=== PATIENT | male | born 1990 | race Caucasian/White ===

== ENCOUNTER 2022-06-25 21:36 | Inpatient (IN) | payer BC ==
--- OUTSIDE RECORDS SUMMARY | 2022-06-25 21:46 | XMS REPORT | Continuity of Care Document ---
:1990 Author Organization [facility] t Address [address] [place] [address] [address]. [address] [place] [address] Care Team Providers Name Role Phone OSWALDO LEE Primary Care Physician Unavailable Fredo BENNETT, Bertha Benitez Attending Clinician NAOMI DE Attending Clinician Unavailable Thanh Toney MD Attending Clinician Marc Chris MD Attending Clinician Naomi De DO Attending Clinician Marco Antonio Dunbar DO Attending Clinician Jessica Hampton Attending Clinician JESSICA HAMPTON Attending Clinician Unavailable Oswaldo Lee Attending Clinician Chun Becker MD Attending Clinician Chiquis Cardoza Attending Clinician Tosha Villanueva Attending Clinician Teetee Hendrix Attending Clinician TEETEE HENDRIX Attending Clinician Unavailable Castro Garcia Attending Clinician Rubi Steele Attending Clinician RUBI STEELE Attending Clinician Unavailable Travis Maria Attending Clinician Nik [place]ont II Attending Clinician Adiel Cortes Attending Clinician Jose Martin Mejias Attending Clinician Brett Villarreal Attending Clinician MARC CHRIS Admitting Clinician Unavailable Marc Chris MD Admitting Clinician NAOMI DE Admitting Clinician Unavailable Naomi De DO Admitting Clinician Payers Payer Name Policy Type Policy Number Effective Date Expiration Date S ource Problems Condition Condition Condition Status Onset Resolution Last Treating Co mments Source Name Details Category Date Date Treatment Clinician Date EDOUARD (acute EDOUARD (acute Disease Active U [facility] kidney kidney 9-17 ity of injury) injury) 00:00: [address] Branch Nephrotic Nephrotic Disease Active Uni vers syndrome syndrome 2-23 ity of 00:00: [address] Obesity Obesity Disease Active Univers (BMI (BMI 2-23 ity of 30-39.9) 30-39.9) 00:00: [address] FLUID FLUID Diagnosis Active 2021-07-21 Mem oria BUILD UP BUILD UP 2-22 04:53:00 l Active 00:00: Jet 07/16/2021 00 [facility] Jet RETAINING RETAINING Diagnosis Active 2020-052021-03-25 Memoria FLUID FLUID 0-31 01:24:00 l Active 00:00: Jet 03/24/2021 00 [place] LEG LEG Diagnosis Active 2020-10-28 Mem oria SWELLING, SWELLING, 6- 00:30:00 l HOT TO HOT TO 00:00: Jet TOUCH TOUCH 00 Active 10/27/2020 [place] ABCESS/ ABCESS/ Diagnosis Active 2017-052018-05-23 Memoria ELEVATED ELEVATED 2- 18:44:00 l BP BP Active 00:00: Jet 05/23/2018 [facility] Jet U/S U/S Diagnosis Active 2017-02-09 Mem oria Active 02-03 06:19:00 l 02/03/2017 00:00: Junior n [address] R07.89 - R07.89 - Diagnosis Active 2016-12-10 Memoria OTHER OTHER 12-10 14:06:00 l CHEST PAIN CHEST PAIN 00:01: He rmann Active 00 12/10/2016 [facility] [place] SWELLING SWELLING Diagnosis Active 2015-09-30 Memoria ON LIP ON LIP 09-29 20:09:00 l Active 00:00: [place] 09/30/2015 00 [facility] KNEE PAIN KNEE Diagnosis Active 2013-052014-05-22 Memoria PAIN 05:44:00 l Active 00:00: [place] 05/22/2014 00 [facility] Varicella Varicella Problem Resolve 2021-07-19 Memoria (disorder) (disorder) d 00:28:06 l Resolved Jet Problem 07/19/2021 [facility], [facility], [facility] [place],[facility] [place] Hyperglyce Hyperglyc Problem Active 2021-07-19 Memoria kulwant due to emia due 00:28:06 l type 2 to type 2 Jet diabetes diabetes mellitus mellitus (disorder) (disorder) Active Problem 07/19/2021 [facility], [facility]AYA [facility]gins,[facility], [place] Simple Simple Problem Active 2021-07-19 Mem oria obesity obesity 00:28:06 l (disorder) (disorder) He rmann Active Problem 07/19/2021 Medical Group, [facility]AY[facility]gins,[facility] [place] Diabetes Diabetes Problem Active 2021-07-19 Memoria mellitus mellitus 00:28:06 l type 2 type 2 Jet (disorder) (disorder) Active Problem 07/19/2021 [facility], CHAYA Higgins,[facility], [place] Bilateral Problem Active 2021-07-19 Me moria lower limb Bilateral 00:28:06 l edema lower limb Junior n edema Active Problem 07/19/2021 Medical Group, [facility]AYA Higgins,[facility] Hypertensi Problem Active 2021-07-19 M emoria ve Hypertensi 00:28:06 l disorder, ve Jet systemic disorder, arterial systemic (disorder) arterial (disorder) Active Problem 07/19/2021 [facility], CHAYA Higgins,[facility],M [place] Hypoalbumi Problem Active 2021-07-19 Eli bell Hypoalbumi 00:28:06 l (finding) arabella Jet (finding) Active Problem 07/19/2021 [facility], [facility]AYA Higgins,[facility] Proteinuri Proteinur Problem Active 2021-07-19 Memoria a ia 00:28:06 l (finding) (finding) Herm isak Active Problem 07/19/2021 [facility], [facility]AYA Higgins,[facility] R80.9 - R80.9 - Diagnosis Active 2021-04-22 Memoria PROTEINURI PROTEINURI 13:26:00 l A AJet UNSPECIFIE UNSPECIFIE D E11.22 D E11.22 Active [facility] Jet R FOOT R FOOT Diagnosis Active 2011-02-18 Me moria PAIN PAIN 11:35:00 l Active Junior Aj Diabetes Diabetes Problem Resolve 2021-07-19 2021-07-19 Memoria mellitus mellitus d 6-20 00:28:06 00:28:06 l (disorder) (disorder) 00:00: He rmann Resolved 11/11/2016 Problem 07/19/2021 Medical [facility], CHAYA Higgins, [place],[facility], [facility]AY[facility] [place],M [place] Cigarette Cigarette Problem Resolve 2021-07-19 2021-07-19 Memoria smoker smoker d -24 00:28:06 00:28:06 l (finding) (finding) 00:00: Herm isak Resolved 00 10/15/2013 Problem 07/19/2021 Data migrated from [facility] on 10/24/14. Medical Group, CHAYA Higgins,[facility], [facility] [place],[facility] [place] History of Past Illness Condition Condition Condition Status Onset Resolution Last Treating Co mments Source Name Details Category Date Date Treatment Clinician Date Anemia, Anemia, Problem 2021-07-07 2021-07-07 Memoria unspecifie unspecifie 2-10 01:49:55 01:49:55 l d d 19:35: Jet 07/04/2021 00 07/07/2021 Medical Group Type 2 Type 2 Problem 2021-07-07 2021-07-07 Memoria diabetes diabetes 2- 01:49:55 01:49:55 l mellitus mellitus 22:59: Junior n with other with other 00 specified specified complicati complicati on on 07/02/2021 07/07/2021 Medical Group Localized Problem 2021-07-07 2021-07-07 Memoria edema Localized 2 01:49:55 01:49:55 l edema 22:58: Jet 07/02/2021 00 07/07/2021 Medical Group, [place] Essential Essential Problem 2021-07-07 2021-07-07 Memoria (primary) (primary) 07-02 01:49:55 01:49:55 l hypertensi hypertensi 22:58: Ant alanis on on 07/02/2021 07/07/2021 Medical Group Other Other Problem 2020-052021-04-12 2021-04-12 M emoria disorders disorders - 02:57:36 02:57:36 l of of 16:32: Jet plasma-pro plasma-pro 00 tein tein metabolism metabolism , not , not elsewhere elsewhere classified classified 04/09/2021 04/12/2021 Medical Group, [place] Other Other Problem 2020-052021-04-12 2021-04-12 M emoria proteinuri proteinuri - 02:57:36 02:57:36 l a a 16:31: Jet 04/09/2021 00 Medical Group Encounter Encounter Problem 2020-052021-03-30 2021-03-30 Memoria for for 05-27 01:11:22 01:11:22 l immunizati immunizati 21:34: Ant alanis on on 03/27/2021 Medical Group Hyperglyce Hyperglyc Problem 2020-10-30 2020-10-30 Memoria tracee blum, 10-28 21:03:50 21:03:50 l unspecifie unspecifie 17:00: He rmann d d 00 10/28/2020 [place] Rash and Rash and Problem 2020-10-30 2020-10-30 Memoria other other 10-28 21:03:50 21:03:50 l nonspecifi nonspecifi 17:00: He zeke erwin skin c skin 00 eruption eruption 10/28/2020 10/30/2020 [place] Splenomega Splenomeg Problem 2016-12-21 2016-12-21 Memoria ly, not [place], not 12-18 05:45:16 05:45:16 l elsewhere elsewhere 05:00: Herm isak classified classified 12/21/2016 [facility] [place] Chest Chest Problem 2016-12-21 2016-12-21 M emoria pain, pain, 12-18 05:45:16 05:45:16 l unspecifie unspecifie 05:00: He blakeann d d 00 12/18/2016 12/21/2016 [place] Discharge Discharge Problem 2015-10-03 2015-10-03 Memoria Diagnosis: Diagnosis: 09-29 00:37:16 00:37:16 l Abscess Abscess 05:00: Jet 09/30/201510/03/2015 Ezequiel Allergies, Adverse Reactions, Alerts Allergy Allergy Status Severity Reaction(s) Onset Inactive Treating Comm ents Source Name Type Date Date Clinician NO KNOWN Drug Active Univers ALLERGIE Class ity of S [facility] Social History Social Habit Start Date Stop Date Quantity Comments Source History of Cigarette Smoker Universi ty of tobacco use [facility] Exposure to 2022-01-29 2022-02-08 Not sure [facility] SARS-CoV-2 00:00:00 01:17:00 [facility] [place] (event) Branch Tobacco use and 2022-02-08 2022-02-08 Smokeless tobacco Un iversity of exposure 00:00:00 00:00:00 non-user [facility] [place] Branch Education 2021-07-17 2021-07-17 13 University 00:00:00 00:00:00 [facility] Alcohol intake 2016-07-12 2016-07-12 Current Mandaen 00:00:00 00:00:00 non-drinker of Hospital alcohol (finding) Social History 2015-10-02 2015-10-02 [facility] Choco burgos 15:55:39 15:55:39 Sex [birth year] Mandaen 00:00:00 00:00:00 Hospital Smoking Status Start Date Stop Date Source Ex-smoker 2022-02-08 00:00:00 2022-02-08 00:00:00 [facility] Medical Branch Never smoker [facility] Medical Branch Medications Ordered Filled Start Stop Current Ordering Indication Dosage Frequency Signature Comments Components Source Medication Medication Date Date Medication? Clinician (SIG) Name Name glimepiride Yes 1mg Take 1 mg U nivers 1 mg tablet 9-20 by mouth ity of 10:25: daily with [place] [address] breakfast. Medical Branch carvediloL Yes 25mg Take 25 mg U nivers 25 mg 9-20 by mouth 2 ity of tablet 10:25: (two) [place] [address] times Medical daily with Branch meals. lisinopriL 0 Yes 40mg Take 40 mg U nivers 40 mg 9-20 by mouth ity of tablet 10:25: daily. [place] [address] Medical Branch bumetanide 0 Yes 2mg Take 2 mg [place] 2 mg tablet 9-20 by mouth ity of 10:25: in the [place] [address] morning Medical and 2 mg Branch in the evening. SITagliptin 0 Yes 100mg Take 100 U nivers 100 mg 9-20 mg by ity of tablet 10:25: mouth in [place] [address] the Medical morning. Branch spironolact 0 Yes 100mg Take 100 U nivers one 100 mg 9-20 mg by ity of tablet 10:25: mouth in [place] [address] the Medical morning Branch and 100 mg in the evening. Titratable per patient glimepiride 2021-0 Yes 1mg Take 1 mg U nivers 1 mg tablet 9-20 by mouth ity of 10:25: daily with [place] [address] breakfast. Medical Branch carvediloL 2021-0 Yes 25mg Take 25 mg U nivers 25 mg 9-20 by mouth 2 ity of tablet 10:25: (two) [place] [address] times Medical daily with Branch meals. lisinopriL 2021-0 Yes 40mg Take 40 mg U nivers 40 mg 9-20 by mouth ity of tablet 10:25: daily. [place] [address] Medical Branch bumetanide 0 Yes 2mg Take 2 mg [place] 2 mg tablet 9-20 by mouth ity of 10:25: in the [place] [address] morning Medical and 2 mg Branch in the evening. SITagliptin 0 Yes 100mg Take 100 U nivers 100 mg 9-20 mg by ity of tablet 10:25: mouth in [place] [address] the Medical morning. Branch spironolact 0 Yes 100mg Take 100 U nivers one 100 mg 9-20 mg by ity of tablet 10:25: mouth in [place] [address] the Medical morning Branch and 100 mg in the evening. Titratable per patient furosemide 2021- No 40mg 40 mg, Univ ers (LASIX) -11 02-20 Slow IV ity of injection 04:00: 03:20 [place], [place] 40 mg 00 :00 ONCE, 1 Medical dose, On Branch Thu02/10/22 at 2300, TRINY carvediloL Yes 25mg 25 mg, Unive rs (COREG) 9-20 Oral, BID ity of tablet 25 03:15: MEALS, [place] mg 00 First dose Medical on [facility] 02/10/22 at 2215, Until Discontinu ed, Routine labetaloL Yes 10mg 10 mg, Univer s (NORMODYNE) 9-20 Slow IV ity o f injection 03:07: Push, [place] 10 mg 13 Q4HPRN, Medical Starting Branch on [facility] 02/10/22 at 2207, Until Discontinu ed, Routine, SBP > 180 or DBP > 110. Hold if HR < 65 hydralAZINE 0 Yes 10mg 10 mg, Univ ers (APRESOLINE 9-20 Slow IV ity o f ) injection 03:06: Push, [place] 10 mg 52 Q4HPRN, Medical Starting Branch on [facility] 02/10/22 at 2206, Until Discontinu ed, Routine, DBP=>10 0; SBP=>180 hydralAZINE 2021-0 2021- No 10mg 10 mg, Uni vers (APRESOLINE 9-20 -20 Slow IV ity of ) injection 02:15: 01:24 [place], [place] 10 mg 00 :00 ONCE, 1 Medical dose, On Branch 02/10/22 at 2115, STAT ferrous 2021-2021- No [id number] 325mg Take 1 Univers sulfate 325 02-11 9101 tablet by it y of mg (65 mg 00:00: 04:59 mouth in [place] iron) 00 :00 the Medical tablet morning Branch and 1 tablet in the evening. Do all this for 30 days. ferrous 2021-2021- No [id number] 325mg Take 1 Univers sulfate 325 02-11 9101 tablet by it y of mg (65 mg 00:00: 04:59 mouth in [place] iron) 00 :00 the Medical tablet morning Branch and 1 tablet in the evening. Do all this for 30 days. amoxicillin 2021- No [id number] 1{tbl} Take 1 Univers -clavulanat 02-11 9101 tablet by it y of e 00:00: 04:59 mouth in [place] (AUGMENTIN) 00 :00 the Medical 875-125 mg morning Branch per tablet and 1 tablet in the evening. Do all this for 10 days. amoxicillin 2021- No [id number] 1{tbl} Take 1 Univers -clavulanat 02-11 9101 tablet by it y of e 00:00: 04:59 mouth in [place] (AUGMENTIN) 00 :00 the Medical 875-125 mg morning Branch per tablet and 1 tablet in the evening. Do all this for 10 days. furosemide 2021- No 20mg 20 mg, Univ ers (LASIX) 02-10 Slow IV ity of injection 22:30: 22:47 Push, [place] 20 mg 00 :00 ONCE, 1 Medical dose, On Branch Thu02/10/22 at 1730, Routine iron 2021- No 200mg 200 mg, IV Unive rs sucrose 02-10 Infusion, ity of (VENOFER) 14:30: 18:37 ONCE, [place] 200 mg in 00 :00 Administer Medi cruz NaCl 0.9% over 2.5 Branch (NS) 100 mL Hours, On infusion 02/10/22 at 0930, For 1 dose albumin 2021- No 25g 25 g, IV Unive rs (ALBUMINAR 02-09 Infusion, ity of 25%) 25 % 19:15: 23:36 ONCE, 1 [place] injection 00 :46 dose, On Medica l 25 g [facility] 02/09/22 at 1415, 100 mL
Shaylee cation: NEPHROTIC SYNDROME (ACUTE, SEVERE PERIPHERAL OR PULMONARY EDEMA)
Comments: Short-term use of albumin in combinatio n with diuretic therapy when: serum albumin <2 g/dL and optimal diuretic therapy alone has failed ampicillin- 2021- No 3g 3 g, IV [place] sulbactam 02-09 Piggyback, ity of (UNASYN) 3 15:00: 14:59 Q12H ABX, [place] g in NaCl 00 :00 20 doses, Medic al 0.9% (NS) First dose Bran ch 100 mL on [place] MINI-BAG 02/09/22 at 1000, Last dose on 02/18/22 at 2200, Administer over 30 Minutes, 100 mL
Reas on for Anti-Infec tive: Documented Infection& lt;br>Docu mented Infection Site: Skin / Soft Tissue
Duration of Therapy: 10 days heparin Yes 5000U 5,000 Univers (porcine) 02-09 Units, ity of injection 13:00: [place]cut[place]o [place] 5,000 Units 00 us, Q12H, Med ical First dose Branch on [place] 02/09/22 at 0800, Until Discontinu ed, Routine collagenase Yes Topical Uni vers (SANTYL) 02-08 (Apply To ity of ointment 21:00: Affected [place] 00 Areas), Medical DAILY, Branch First dose on [facility] 02/08/22 at 1600, Until Discontinu ed, Routine SITagliptin Yes 50mg 50 mg, Univ ers (JANUVIA) 02-08 Oral, ity of tablet 50 14:00: DAILY, [place] mg 00 First dose Medical on [facility] Branch 02/08/22 at 0900, Until Discontinu ed, Routine Sliding Yes Subcutaneo Univ ers Scale - us, TID ity of Insulin - 13:00: MEALS+HS, Nic as Lispro 00 First dose Medical (HumaLOG) + on [facility] Branch Fsbg 9/17/22 at Testing 0800, Until Discontinu ed, Routine clindamycin 2021- No 600mg 600 mg, IV Univers in 5 % 02-08 Piggyback, ity of dextrose 09:15: 13:49 Q8H ABX, [place] (CLEOCIN) 00 :24 First dose Medi cruz 600 mg/50 on Sat Branch mL IV 02/08/22 at piggyback 0415, RTU 600 mg Until Discontinu ed, Administer over 30 Minutes, 50 mL
Reas on for Anti-Infec tive: Empiric Therapy for Suspected Infection< br>Empi adi Therapy Site: Skin / Soft tissue
Duration of therapy: 72 hours
R estricted use approved by: After Hours (for ADC, CLC, LCC ONLY) NaCl 0.9% 2021- No 1000mL at 100 Uni vers (NS) IV 02-08 mL/hr, IV ity of infusion 08:15: 18:22 Infusion, Nic as 1,000 mL 00 :54 CONTINUOUS Medic al , Starting Branch on 02/08/22 at 0315, Until 02/09/22 at 1322, Routine NaCl 0.9% 2021- No 1000mL at 999 Uni vers (NS) bolus 02-08 mL/hr, ity of infusion 08:15: 16:00 1,000 mL, Nic as 1,000 mL 00 :00 IV Medical Infusion, Branch ONCE, 1 dose, On 02/08/22 at 0315, TRINY glucagon Yes 1mg 1 mg, Univers (GLUCAGEN 02-08 Intramuscu ity of DIAGNOSTIC 08:05: lar, PRN, [place] KIT) 23 Starting Medical injection 1 on Sat Branch mg 02/08/22 at 0305, Until Discontinu ed, TRINY, Blood Glucose < or = 70 mg/dL and patient is unable to swallow or has mental changes. dextrose 50 2021-0 Yes 25mL 25 mL, Univ ers % in water 02-08 Slow IV ity of (D50W) 08:05: Push, PRN, [place] injection 23 Starting Medica l 25 mL on Sat Branch 02/08/22 at 0305, Until Discontinu ed, TRINY, Blood Glucose < or = 70 mg/dL and patient is unable to swallow or has mental status changes. HYDROcodone Yes 1{tbl} 1 tablet, Univers -acetaminop 02-08 Oral, ity of hen (NORCO) 08:04: Q6HPRN, Nic as 10-325 mg 28 Starting Medica l tablet 1 on Sat Branch tablet 02/08/22 at 0304, Until Discontinu ed, Routine, Pain (scale 7-10) HYDROcodone 2021-0 2021- No 1{tbl} 1 tablet, Univers -acetaminop 02-08 Oral, ity of hen (NORCO 08:04: 08:03 Q6HPRN, Nic as 5) 5-325 mg 25 :25 Starting Medi cruz tablet 1 on Sat Branch tablet 02/08/22 at 0304, Until 02/10/22 at 0303, Routine, Pain (scale 4-6) acetaminoph Yes 650mg 650 mg, Un [place] en 02-08 Oral, ity of (TYLENOL) 08:04: Q6HPRN, [place] tablet 650 23 Starting Medic al mg on Sat Branch 02/08/22 at 0304, Until Discontinu ed, Routine, Pain (scale 1-3) cefTRIAXone 2021- No 1000mg 1,000 mg, Univers (ROCEPHIN) 02-08 Intravenou it y of 1,000 mg in 07:30: 07:06 s, ONCE, 1 [place] NaCl 0.9% 00 :00 dose, On Medica l (NS) 50 mL [facility] Branch MINI-BAG 02/08/22 at 0230, Administer over 30 Minutes, 50 mL
R ortiz for Anti-Infec tive: Documented Infection< br>Documen sai Infection Site: Skin / Soft Tissue
Duration of Therapy: 7 days spironolact Yes 50mg 50 mg, Univ ers one - Oral, BID, ity of (ALDACTONE) 18:45: First dose [place] tablet 50 00 (after Medical mg last Branch modificati on) on 07/20/21 at 1245, Until Discontinu ed, Routine glimepiride Yes 1mg Take 1 mg U nivers 1 mg tablet 2-26 by mouth ity of 15:42: daily with [place] [address] breakfast. Medical Branch carvediloL Yes 25mg Take 25 mg U nivers (COREG) 25 2-26 by mouth 2 ity of mg tablet 15:42: (two) [place] [address] times Medical daily with [place] meals. lisinopriL Yes 40mg Take 40 mg U nivers 40 mg - by mouth ity of tablet 15:42: daily. [address] Branch glimepiride 0 Yes 1mg Take 1 mg U nivers 1 mg tablet - by mouth ity of 15:42: daily with [place] [address] breakfast. Medical Branch carvediloL Yes 25mg Take 25 mg U nivers (COREG) 25 2- by mouth 2 ity of mg tablet 15:42: (two) [place] [address] times Medical daily with [place] meals. lisinopriL Yes 40mg Take 40 mg U nivers 40 mg - by mouth ity of tablet 15:42: daily. [address] Branch furosemide 2021- No 40mg Take 40 mg Univers (LASIX) 40 07-20 by mouth ity of mg tablet 14:38: 00:00 every [place] 16 :00 morning Medical and Branch evening. bumetanide Yes 2mg 2 mg, Slow U nivers (BUMEX) 07-20 IV [place], ity of injection 2 06:00: Q6H, First [place] mg 00 dose Medical (after Branch last modificati on) on 07/20/21 at 0000, Until Discontinu ed, Routine bumetanide 2021- No [id number] 2mg Take 1 Univers 2 mg tablet 07-20 tablet by it y of 00:00: 04:59 mouth [place] 00 :00 daily for Medical 30 days. Branch spironolact 2021- No [id number] 50mg Take 1 Univers one 50 mg 07-20 tablet by ity of tablet 00:00: 04:59 mouth 2 [place] 00 :00 (two) Medical times [place] daily for 30 days. amLODIPine 2021- No [id number] 5mg Take 1 Univers 5 mg tablet 2-26 03-29 tablet by it y of 00:00: 04:59 mouth [place] 00 :00 daily for Medical 30 days. Branch bumetanide 2021- No [id number] 2mg Take 1 Univers 2 mg tablet 07-20 tablet by it y of 00:00: 04:59 mouth [place] 00 :00 daily for Medical 30 days. Branch spironolact 2021- No [id number] 50mg Take 1 Univers one 50 mg 07-20 tablet by ity of tablet 00:00: 04:59 mouth 2 [place] 00 :00 (two) Medical times [place] daily for 30 days. amLODIPine 2021- No [id number] 5mg Take 1 Univers 5 mg tablet 07-20 tablet by it y of 00:00: 04:59 mouth [place] 00 :00 daily for Medical 30 days. Branch spironolact 2021- No 25mg 25 mg, Uni vers one 07-19 Oral, BID, ity of (ALDACTONE) 02:00: 17:49 First dose [place] tablet 25 00 :21 (after Medical mg last Branch modificati on) on [facility] 07/18/21 at 2000, Until Discontinu ed, Routine bumetanide 2021- No 1mg 1 mg, Slow Univers (BUMEX) 07-18 IV Push, ity of injection 1 18:00: 23:58 Q6H, First [place] mg 00 :15 dose Medical (after Branch last modificati on) on [facility] 07/18/21 at 1200, Until Discontinu ed, Routine lisinopriL Yes 40mg 40 mg, Unive rs (PRINIVIL,Z 07-18 Oral, ity of ESTRIL) 15:00: DAILY, [place] tablet 40 00 First dose Medi cruz mg on [facility] 07/18/21 at 0900, Until Discontinu ed KCL 2021- No 20meq 20 mEq, Univers (KLOR-CON 07-18 Oral, Q3H, ity of M20) tablet 15:00: 21:15 3 doses, [place] 20 mEq 00 :00 First dose Medical on [facility] 07/18/21 at 0900, Last dose on [facility] 07/18/21 at 1400, Routine carvediloL Yes 25mg 25 mg, Unive rs (COREG) 2-24 Oral, BID ity of tablet 25 14:00: MEALS, [place] mg 00 First dose Medical on [place] Branch 07/18/21 at 0800, Until Discontinu ed, Routine calcitrioL Yes .5ug 0.5 mcg, Uni vers (ROCALTROL) 24 Oral, ity of capsule 0.5 02:45: DAILY, [place] mcg 00 First dose Medical on Thu Branch 07/17/21 at 2044, Until Discontinu ed, Routine spironolact 2021- No 25mg 25 mg, Uni vers one 07-18 02-24 Oral, ity of (ALDACTONE) 02:45: 14:59 DAILY, Nic as tablet 25 00 :00 First dose Medi cruz mg on Thu Branch 07/17/21 at 2044, Until Discontinu ed, Routine hydralAZINE Yes 10mg 10 mg, Univ ers (APRESOLINE 24 Slow IV ity o f ) injection 00:35: Push, [place] 10 mg 32 Q6HPRN, Medical Starting Branch on Thu07/17/21 at 1835, Until Discontinu ed, STAT, DBP=>100; SBP=>160<b r>Indicati on: Hypertensi ve Emergency Sliding Yes Subcutaneo Univ ers Scale 2-23 us, TID ity of Insulin - 23:00: MEALS+HS, Nic as Lispro 00 First dose Medical (HumaLOG) + on Thu Branch Fsbg 07/17/21 at Testing 1700, Until Discontinu ed, Routine heparin Yes 5000U 5,000 Univers (porcine) 2-23 Units, ity of injection 20:00: [place]cut[place]o [place] 5,000 Units 00 us, Q8H, Medi cruz First dose Branch on Thu07/17/21 at 1400, Until Discontinu ed, Routine acetaminoph Yes 650mg 650 mg, Un [place] en 07-17 Oral, ity of (TYLENOL) 19:35: Q6HPRN, [place] tablet 650 48 Starting Medic al mg on Thu Branch 07/17/21 at 1335, Until Discontinu ed, Routine, Pain (scale 1-3) bumetanide 2021-0 2021- No 1.25mg 1.25 mg, Univers (BUMEX) 07-17 02-24 Slow IV ity of injection 19:30: 14:59 Push, [place] 1.25 mg 00 :00 Q24H, Medical First dose Branch on Thu07/17/21 at 1330, Until Discontinu ed, Routine lisinopril 2021-0 Yes 40 mg = 1 Me mor[place] 40 mg oral 2-10 tab, PO, l tablet 19:16: BID, 0 [place] 00 Refill(s) lisinopril 2021-0 Yes 40 mg = 1 Me mor[place] 40 mg oral 2-10 tab, PO, l tablet 19:16: BID, 0 [place] 00 Refill(s) carvedilol 2021-0 Yes 25 mg = 1 Me moria 25 MG Oral 2-10 tab, PO, l Tablet 19:15: BID, 0 [place] [Coreg] 00 Refill(s) carvedilol 2021-0 Yes 25 mg = 1 Me moria 25 MG Oral 2-10 tab, PO, l Tablet 19:15: BID, 0 [place] [Coreg] 00 Refill(s) potassium 2021-0 Yes 20meq Q.5D Take 20 Meth abner chloride 1-[address] (K-Tab) 20 09:22: mouth 2 [facility] mEq tablet 41 (two) l extended times a release day. carvediloL 0 Yes 25mg Q.5D Take 25 mg M ethodi (COREG) 25 1-[address] MG tablet 09:22: (two) [facility] 41 times a l day with meals. SITagliptin 2021-0 Yes QD Take by Met hodi -metformin 1-[address] 50-1,000 mg 09:22: daily. [facility] tablet, ER 41 l multiphase 24 hr furosemide 2021-0 Yes 40mg Q.5D Take 40 mg M ethodi (LASIX) 40 1-[address] mg tablet 09:22: (two) Hospita 40 times a l day. glimepiride 2021-0 Yes 1mg QD Take 1 mg M ethodi (AMARYL) 1 1-[address] MG tablet 09:22: daily [facility]osp[facility] 40 before l breakfast. insulin 2022-0 Yes Inject Methodi regular 05-[address] (HumuLIN R 09:22: skin. As Hos thi Regular 40 directed l U-100 Insuln) 100 unit/mL injection SITagliptin Yes QD Take by Met hodi -metformin 05-[address] (Janumet 09:22: daily. Hospita XR) 40 l 100-1,000 mg tablet, ER multiphase 24 hr lisinopriL Yes 40mg QD Take 40 mg M ethodi (PRINIVIL) 05-[address] 40 mg 09:22: daily. Hospita tablet 40 l Furosemide 2020-05 Yes 80 mg = 2 Me moria 40 MG Oral 1-16 tab, PO, l Tablet 16:44: Daily, # Jet [Lasix] 00 60 tab, 1 Refill(s), Pharmacy: [facility] #1, 172.72, cm, 04/09/21 10:26:00 [employer], Height, 82.727, kg, 04/09/21 10:26:00 [employer], Weight Furosemide 2020-05 Yes 80 mg = 2 Me moria 40 MG Oral 1-16 tab, PO, l Tablet 16:44: Daily, # Jet [Lasix] 00 60 tab, 1 Refill(s), Pharmacy: [facility] #1, 172.72, cm, 04/09/21 10:26:00 [employer], Height, 82.727, kg, 04/09/21 10:26:00 [employer], Weight lisinopril 2020-05 Yes 40 mg = 1 Me moria 40 mg oral 1-16 tab, PO, l tablet 16:33: Daily, # Jet 00 90 tab, 0 Refill(s), Pharmacy: [facility] #1, 172.72, cm, 04/09/21 10:26:00 [employer], Height, 82.727, kg, 04/09/21 10:26:00 [employer], Weight lisinopril 2020-05 Yes 40 mg = 1 Me moria 40 mg oral 1-16 tab, PO, l tablet 16:33: Daily, # Jet 00 90 tab, 0 Refill(s), Pharmacy: [facility] #1, 172.72, cm, 04/09/21 10:26:00 [employer], Height, 82.727, kg, 04/09/21 10:26:00 [employer], Weight lisinopril 2020-05 Yes 20 mg = 1 Me moria 20 mg oral 1-03 tab, PO, l tablet 21:30: Daily, # Jet 00 90 tab, 0 Refill(s), Pharmacy: [facility] #1, 172.72, cm, 03/27/21 16:11:00 CDT, Height, 81.364, kg, 03/27/21 16:11:00 CDT, Weight lisinopril 2020-05 Yes 20 mg = 1 Me moria 20 mg oral 1-03 tab, PO, l tablet 21:30: Daily, # Jet 00 90 tab, 0 Refill(s), Pharmacy: [facility] #1, 172.72, cm, 03/27/21 16:11:00 CDT, Height, 81.364, kg, 03/27/21 16:11:00 CDT, Weight Furosemide 2020-05 Yes 40 mg = 1 Me moria 40 MG Oral 1-01 tab, PO, l Tablet 06:01: Daily, # Jet [Lasix] 00 30 tab, 0 Refill(s), Pharmacy: [facility] #1, 172.72, cm, 03/24/21 23:46:00 CDT, Height, 80.9, kg, 03/24/21 23:46:00 CDT, Weight Potassium 2020-05 Yes 20 mEq = 1 Me moria Chloride 1-01 tab, PO, l (Eqv-K-Tab) 06:01: BID, # 60 H ermann 20 mEq oral 00 tab, 0 tablet, Refill(s), extended Pharmacy: release [facility] #1, 172.72, cm, 03/24/21 23:46:00 CDT, Height, 80.9, kg, 03/24/21 23:46:00 CDT, Weight Furosemide 2020-05 Yes 40 mg = 1 Me moria 40 MG Oral 1-01 tab, PO, l Tablet 06:01: Daily, # Jet [Lasix] 00 30 tab, 0 Refill(s), Pharmacy: [facility] #1, 172.72, cm, 03/24/21 23:46:00 CDT, Height, 80.9, kg, 03/24/21 23:46:00 CDT, Weight Potassium 2020-05 Yes 20 mEq = 1 Me moria Chloride 1-01 tab, PO, l (Eqv-K-Tab) 06:01: BID, # 60 H ermann 20 mEq oral 00 tab, 0 tablet, Refill(s), extended Pharmacy: release [facility] #1, 172.72, cm, 03/24/21 23:46:00 CDT, Height, 80.9, kg, 03/24/21 23:46:00 CDT, Weight Saline 2020-05 No Notes: Memoria Flush 0.9% 05-25 (Same as: l 04:36: BD Jet 00 Posiflush) Saline 2020-05 No Notes: Memoria Flush 0.9% 1 (Same as: l 04:36: BD Jet 00 Posiflush) Cefuroxime Yes 500 mg = 1 M emoria 500 MG Oral 9-09 tab, PO, l Tablet 21:10: BID, X 10 Junior n [Ceftin] 00 day, # 20 tab, 0 Refill(s), Pharmacy: [facility] #1, 172.72, cm, 11/28/20 13:06:00 CDT, Height, 62.727, kg, 11/28/20 13:06:00 CDT, Weight benzonatate Yes 200 mg = 1 Memoria 200 MG Oral 9-09 cap, PO, l Capsule 21:10: TID, X 10 Ping nn [Tessalon] 00 day, # 30 cap, 0 Refill(s), Pharmacy: [facility] #1, 172.72, cm, 11/28/20 13:06:00 CDT, Height, 62.727, kg, 11/28/20 13:06:00 CDT, Weight Cefuroxime Yes 500 mg = 1 M emoria 500 MG Oral 9-09 tab, PO, l Tablet 21:10: BID, X 10 Junior n [Ceftin] 00 day, # 20 tab, 0 Refill(s), Pharmacy: [facility] Pharm[facility] [place] #1, 172.72, cm, 11/28/20 13:06:00 CDT, Height, 62.727, kg, 11/28/20 13:06:00 CDT, Weight benzonatate 2020-0 Yes 200 mg = 1 Memoria 200 MG Oral 9-09 cap, PO, l Capsule 21:10: TID, X 10 Ping nn [Tessalon] 00 day, # 30 cap, 0 Refill(s), Pharmacy: [facility] Pharmacy [place] #1, 172.72, cm, 11/28/20 13:06:00 CDT, Height, 62.727, kg, 11/28/20 13:06:00 CDT, Weight lisinopril 0 Yes 5 mg = 1 Mem oria 5 mg oral 7-07 tab, PO, l tablet 18:22: Daily, # Jet 00 90 tab, 1 Refill(s), Pharmacy: [facility] Pharmacy [place] #1, 172.72, cm, 11/28/20 13:06:00 CDT, Height, 62.727, kg, 11/28/20 13:06:00 CDT, Weight glimepiride 0 Yes 1 mg = 1 Me moria 1 mg oral 7-07 tab, PO, l tablet 18:22: Breakfast, Ping nn 00 # 90 tab, 1 Refill(s), Pharmacy: [facility] #1, 172.72, cm, 11/28/20 13:06:00 CDT, Height, 62.727, kg, 11/28/20 13:06:00 CDT, Weight 24 HR 2020-0 Yes 1 tab, PO, Memori a Metformin 7-07 BID-Meals, l hydrochlori 18:22: # 180 tab, Jet de 1000 MG 00 1 / Refill(s), sitagliptin Pharmacy: 50 MG [facility] Extended Pharmacy Release [place] Tablet #1, [Janumet 172.72, ] cm, 11/28/20 13:06:00 CDT, Height, 62.727, kg, 11/28/20 13:06:00 CDT, Weight lisinopril 2020-0 Yes 5 mg = 1 Mem oria 5 mg oral 7-07 tab, PO, l tablet 18:22: Daily, # [place] 00 90 tab, 1 Refill(s), Pharmacy: [facility] #1, 172.72, cm, 11/28/20 13:06:00 CDT, Height, 62.727, kg, 11/28/20 13:06:00 CDT, Weight glimepiride 0 Yes 1 mg = 1 Me moria 1 mg oral 7-07 tab, PO, l tablet 18:22: Breakfast, Ping nn 00 # 90 tab, 1 Refill(s), Pharmacy: [facility] #1, 172.72, cm, 11/28/20 13:06:00 CDT, Height, 62.727, kg, 11/28/20 13:06:00 CDT, Weight 24 HR 2020-0 Yes 1 tab, PO, Memori a Metformin 7-07 BID-Meals, l hydrochlori 18:22: # 180 tab, [place] de 1000 MG 00 1 / Refill(s), sitagliptin Pharmacy: 50 MG [facility] Extended Pharmacy Release [place] Tablet #1, [Janumet 172.72, ] cm, 11/28/20 13:06:00 CDT, Height, 62.727, kg, 11/28/20 13:06:00 CDT, Weight 24 HR 0 Yes 1 tab, PO, Memori a Metformin 6-07 BID-Meals, l hydrochlori 19:39: # 60 tab, H ermann de 1000 MG 00 1 / Refill(s), sitagliptin Pharmacy: 50 MG [facility] Extended Pharmacy Release [place] Tablet #1, [Janumet 172.72, ] cm, 10/29/20 14:18:00 CDT, Height, 74.818, kg, 10/29/20 14:18:00 CDT, Weight glimepiride 2020-0 Yes 1 mg = 1 Me moria 1 mg oral 6-07 tab, PO, l tablet 19:39: Breakfast, Ping nn 00 # 30 tab, 1 Refill(s), Pharmacy: [facility] #1, 172.72, cm, 10/29/20 14:18:00 CDT, Height, 74.818, kg, 10/29/20 14:18:00 CDT, Weight 24 HR 2020-0 Yes 1 tab, PO, Memori a Metformin 6-07 BID-Meals, l hydrochlori 19:39: # 60 tab, H ermann de 1000 MG 00 1 / Refill(s), sitagliptin Pharmacy: 50 MG [facility] Extended Pharmacy Release [place] Tablet #1, [Janumet 172.72, ] cm, 10/29/20 14:18:00 CDT, Height, 74.818, kg, 10/29/20 14:18:00 CDT, Weight glimepiride 0 Yes 1 mg = 1 Me moria 1 mg oral 6-07 tab, PO, l tablet 19:39: Breakfast, Ping nn 00 # 30 tab, 1 Refill(s), Pharmacy: [facility] #1, 172.72, cm, 10/29/20 14:18:00 CDT, Height, 74.818, kg, 10/29/20 14:18:00 CDT, Weight Furosemide 0 Yes 40 mg = 1 Me moria 40 MG Oral 6-07 tab, PO, l Tablet 19:38: Daily, # Jet 00 30 tab, 1 Refill(s), Pharmacy: [facility] #1, 172.72, cm, 10/29/20 14:18:00 CDT, Height, 74.818, kg, 10/29/20 14:18:00 CDT, Weight Potassium 2020-0 Yes 20 mEq = 1 Me moria Chloride 6-07 tab, PO, l (Eqv-Klor-C 19:38: Daily, Herm isak on M20) 20 00 Take with mEq oral furosemide tablet, , # 30 extended tab, 1 release Refill(s), Pharmacy: [facility] #1, 172.72, cm, 10/29/20 14:18:00 CDT, Height, 74.818, kg, 10/29/20 14:18:00 CDT, Weight Furosemide 2020-0 Yes 40 mg = 1 Me moria 40 MG Oral 6-07 tab, PO, l Tablet 19:38: Daily, # Jet 00 30 tab, 1 Refill(s), Pharmacy: [facility] #1, 172.72, cm, 10/29/20 14:18:00 CDT, Height, 74.818, kg, 10/29/20 14:18:00 CDT, Weight Potassium Yes 20 mEq = 1 Me moria Chloride 6-07 tab, PO, l (Eqv-Klor-C 19:38: Daily, Herm isak on M20) 20 00 Take with mEq oral furosemide tablet, , # 30 extended tab, 1 release Refill(s), Pharmacy: [facility], 172.72, cm, 10/29/20 14:18:00 CDT, Height, 74.818, kg, 10/29/20 14:18:00 CDT, Weight Saline No Notes: Memoria Flush 0.9% 6-06 (Same as: l 03:41: BD [place] 00 Posiflush) Saline No Notes: Memoria Flush 0.9% 6-06 (Same as: l 03:41: BD Jet 00 Posiflush) Dexcom G6 Yes , # 1 ea, Mem oria Sensor Kit 5-20 Insulin l 21:46: dependent, [place] Does not use insulin pump, Last DM eval date 10/08/20, 5 Refill(s), Pharmacy: [facility] #1, 172.72... Dexcom G6 Yes , # 1 ea, Mem oria Hand Inspector 5-20 Insulin l Kit 21:46: dependent, [place] Does not use insulin pump, Last DM eval date 10/08/20, 5 Refill(s), Pharmacy: [facility] #1, 172.72... Dexcom G6 Yes , # 1 ea, Mem oria Sensor Kit 5-20 Insulin l 21:46: dependent, Jet Does not use insulin pump, Last DM eval date 10/08/20, 5 Refill(s), Pharmacy: [facility] #1, 172.72... Dexcom G6 Yes , # 1 ea, Mem oria Hand Inspector 5-20 Insulin l Kit 21:46: dependent, [place] Does not use insulin pump, Last DM eval date 10/08/20, 5 Refill(s), [facility]... Regular Yes 10 unit, Memori a Insulin, 5-17 SUB-Q, l Human 100 19:01: TID-Before He rmann UNT/ML 00 Meals, # Injectable 10 mL, 3 Solution Refill(s), [Humulin R] Pharmacy: [facility] #1, 172.72, cm, 10/08/20 13:32:00 CDT, Height, 68, kg, 10/08/20 13:32:00 CDT, Weight Regular Yes 10 unit, Memori a Insulin, 5-17 SUB-Q, l Human 100 19:01: TID-Before He rmann UNT/ML 00 Meals, # Injectable 10 mL, 3 Solution Refill(s), [Humulin R] Pharmacy: [facility] #1, 172.72, cm, 10/08/20 13:32:00 CDT, Height, 68, kg, 10/08/20 13:32:00 CDT, Weight 3 ML Yes 20 unit, Memoria insulin 5-17 SUB-Q, l degludec 19:00: Daily, [place] 100 UNT/ML 00 Adjust Pen dosage Injector until [Tresiba] fasting blood sugar is less than 120., # 3 ea, 3 Refill(s), Pharmacy: [facility] #1, 172.72, cm, 10/08/20 13:32:00 CDT, Height, 68, kg, 10/08/20 13:32:00 CDT, Weight 3 ML Yes 20 unit, Memoria insulin 5-17 SUB-Q, l degludec 19:00: Daily, [place] 100 UNT/ML 00 Adjust Pen dosage Injector until [Tresiba] fasting blood sugar is less than 120., # 3 ea, 3 Refill(s), Pharmacy: [facility] #1, 172.72, cm, 10/08/20 13:32:00 CDT, Height, 68, kg, 10/08/20 13:32:00 CDT, Weight lisinopril Yes 5 mg = 1 Mem oria 5 mg oral 5-17 tab, PO, l tablet 18:59: Daily, # [place] 00 90 tab, 1 Refill(s), Pharmacy: [facility] Pharmacy [place] #1, 172.72, cm, 10/08/20 13:32:00 CDT, Height, 68, kg, 10/08/20 13:32:00 CDT, Weight lisinopril Yes 5 mg = 1 Mem oria 5 mg oral 5-17 tab, PO, l tablet 18:59: Daily, # [place] 00 90 tab, 1 Refill(s), Pharmacy: [facility] Pharmacy [place] #1, 172.72, cm, 10/08/20 13:32:00 CDT, Height, 68, kg, 10/08/20 13:32:00 CDT, Weight omeprazole No 40 mg = 1 Me moria 40 mg oral 7-28 cap, PO, l delayed 03:48: Daily, # Junior n release 00 30 cap, 0 capsule Refill(s) Metoclopram No 10 mg = 1 M emoria kev 10 MG 7-28 tab, PO, l Oral Tablet 03:48: QID, X 7 He rmann [Reglan] day, # 28 tab, 0 Refill(s) omeprazole No 40 mg = 1 Me moria 40 mg oral 7-28 cap, PO, l delayed 03:48: Daily, # Junior n release 00 30 cap, 0 capsule Refill(s) Metoclopram No 10 mg = 1 M emoria kev 10 MG 7-28 tab, PO, l Oral Tablet 03:48: QID, X 7 He rmann [Reglan] 00 day, # 28 tab, 0 Refill(s) Saline No Notes: Memoria Flush 0.9% 12-19 (Same as: l 01:52: BD [place] 00 Posiflush) Saline No Notes: Memoria Flush 0.9% 28 (Same as: l 01:52: BD Jet 00 Posiflush) tramadol Yes 50 mg = 1 Kenneth maranda hydrochlori 5-09 tab, PO, l de 50 MG 01:09: BID, X 15 Herm isak Oral Tablet 00 day, # 30 tab, 0 Refill(s) Sulfamethox Yes 1 tab, PO, Memoria azole 800 5-09 BID, X 10 l MG / 01:09: day, # 20 Jet Trimethopri 00 tab, 0 m 160 MG Refill(s) Oral Tablet [Bactrim] tramadol Yes 50 mg = 1 Kenneth maranda hydrochlori 5- tab, PO, l de 50 MG 01:09: BID, X 15 Herm isak Oral Tablet 00 day, # 30 tab, 0 Refill(s) Sulfamethox Yes 1 tab, PO, Memoria azole 800 5-09 BID, X 10 l MG / 01:09: day, # 20 [place] Trimethopri 00 tab, 0 m 160 MG Refill(s) Oral Tablet [Bactrim] Immunizations Ordered Immunization Filled Immunization Date Status Commen ts Source Name Name influenza virus 2021-03-27 Completed [facility] vaccine, 21:40:00 Jet inactivated<sup>1</s up> influenza virus 2021-03-27 Completed [facility] vaccine, 21:40:00 Jet inactivated<sup>1</s up> influenza virus 2017-03-31 Completed [facility] vaccine, inactivated 19:36:00 Herm isak influenza virus 2017-03-31 Completed [facility] vaccine, inactivated 19:36:00 Herm isak Vital Signs Vital Name Observation Time Observation Value Comments Source Systolic blood 2022-02-11 12:59:00 139 mm[Hg] [facility] Diastolic blood 2022-02-11 12:59:00 80 mm[facility]Hg[facility] 2022-02-11 12:59:00 85 /min [facility] Body temperature 2022-02-11 12:59:00 35.94 [facility] Respiratory rate 2022-02-11 12:59:00 16 /min [facility] Oxygen saturation in 2022-02-11 12:59:00 98 /min [facility] Arterial blood by [facility] Pulse oximetry Branch Body weight 2022-02-11 08:54:00 75.479 kg [facility] BMI 2022-02-11 08:54:00 25.30 kg/m2 [facility] Body height 2022-02-08 08:01:00 172.7 cm [facility] Systolic blood 2021-07-20 18:45:00 136 mm[Hg] Univer sity of pressure [facility] Diastolic blood 2021-07-20 18:45:00 85 mm[Hg] Unive rsity of pressure [facility] Heart rate 2021-07-20 18:45:00 78 /min [facility] Oxygen saturation in 2021-07-20 18:45:00 97 /min [facility] Arterial blood by [facility] Pulse oximetry Branch Body temperature 2021-07-20 14:06:00 36.11 [facility] 2021-07-20 14:06:00 16 /min [facility] Body weight 2021-07-20 10:18:00 89.994 kg [facility] BMI 2021-07-20 10:18:00 30.17 kg/m2 [facility] Body height 2021-07-17 22:15:00 172.7 cm [facility] Height 2021-07-16 17:40:00 172.72 cm [facility] [place] BMI Calculated 2021-07-16 17:40:00 Memori al [place] Weight 2021-07-16 17:40:00 [facility] [place] Systolic (mm Hg) 2021-07-16 17:40:00 Kenneth rial Jet Diastolic (mm Hg) 2021-07-16 17:40:00 Mem orial [place] Heart Rate 2021-07-16 17:40:00 [facility] [place] Respitory Rate 2021-07-16 17:40:00 Memori al Jet Temperature Oral (F) 2021-07-16 17:40:00 98.6 F [facility] Temperature Oral (F) 2021-07-04 19:17:00 98.7 F [facility] Heart Rate 2021-07-04 19:17:00 [facility] Systolic (mm Hg) 2021-07-04 19:17:00 Kenneth rial [place] Diastolic (mm Hg) 2021-07-04 19:17:00 Mem orial [place] Height 2021-07-04 19:17:00 172.72 cm [facility] Weight 2021-07-04 19:17:00 [facility] BMI Calculated 2021-07-04 19:17:00 Memori al Jet Systolic blood 2021-06-26 19:45:00 135 mm[Hg] [facility] pressure Diastolic blood 2021-06-26 19:45:00 71 mm[Hg] [facility] pressure Heart rate 2021-06-26 19:45:00 88 /min [facility] Respiratory rate 2021-06-26 19:45:00 18 /min [facility] Oxygen saturation in 2021-06-26 19:45:00 98 /min [facility] Arterial blood by Pulse oximetry Body temperature 2021-06-26 16:50:00 36.56 Jaki [facility] Body height 2021-06-26 15:00:00 172.7 cm [facility] Body weight 2021-06-26 15:00:00 81.647 kg [facility] BMI 2021-06-26 15:00:00 27.37 kg/m2 [facility] Temperature Oral (F) 2021-04-30 16:36:00 98.4 F [facility] Heart Rate 2021-04-30 16:36:00 [facility] [place] Respitory Rate 2021-04-30 16:36:00 Memori al [place] Systolic (mm Hg) 2021-04-30 16:36:00 Kenneth rial Jet Diastolic (mm Hg) 2021-04-30 16:36:00 Mem orial [place] Height 2021-04-30 16:36:00 172.72 cm [facility] [place] Weight 2021-04-30 16:36:00 [facility] [place] BMI Calculated 2021-04-30 16:36:00 Memori al [place] Temperature Oral (F) 2021-04-09 16:26:00 98.6 F [facility] [place] Heart Rate 2021-04-09 16:26:00 [facility] [place] Respitory Rate 2021-04-09 16:26:00 Memori al [place] Systolic (mm Hg) 2021-04-09 16:26:00 Kenneth rial [place] Diastolic (mm Hg) 2021-04-09 16:26:00 Mem orial Jet Height 2021-04-09 16:26:00 172.72 cm [facility] [place] Weight 2021-04-09 16:26:00 [facility] [place] BMI Calculated 2021-04-09 16:26:00 Memori al [place] Systolic (mm Hg) 2021-03-27 21:11:00 Kenneth rial [place] Diastolic (mm Hg) 2021-03-27 21:11:00 Mem orial [place] Heart Rate 2021-03-27 21:11:00 [facility] [place] Respitory Rate 2021-03-27 21:11:00 Memori al [place] Temperature Oral (F) 2021-03-27 21:11:00 98.1 F [facility] [place] Height 2021-03-27 21:11:00 172.72 cm [facility] Weight 2021-03-27 21:11:00 [facility] [place] BMI Calculated 2021-03-27 21:11:00 Memori al [place] Systolic (mm Hg) 2021-03-25 06:10:00 Kenneth rial [place] Diastolic (mm Hg) 2021-03-25 06:10:00 Mem orial [place] Respitory Rate 2021-03-25 06:10:00 Memori al Jet Heart Rate 2021-03-25 06:10:00 [facility] [place] Systolic (mm Hg) 2021-03-25 05:33:00 Kenneth rial [place] Diastolic (mm Hg) 2021-03-25 05:33:00 Mem orial Jet Heart Rate 2021-03-25 05:33:00 [facility] [place] Respitory Rate 2021-03-25 05:33:00 Memori al Jet Height 2021-03-25 04:28:00 172.72 cm [facility] [place] BMI Calculated 2021-03-25 04:28:00 Memori al Jet Weight 2021-03-25 04:28:00 [facility] [place] Systolic (mm Hg) 2021-03-25 04:28:00 Kenneth rial [place] Diastolic (mm Hg) 2021-03-25 04:28:00 Mem orial Jet Heart Rate 2021-03-25 04:28:00 [facility] [place] Respitory Rate 2021-03-25 04:28:00 Memori al Jet Temperature Oral (F) 2021-03-25 04:28:00 98 F [facility] [place] Systolic (mm Hg) 2020-11-28 18:06:00 Kenneth rial [place] Diastolic (mm Hg) 2020-11-28 18:06:00 Mem orial Jet Heart Rate 2020-11-28 18:06:00 [facility] [place] Height 2020-11-28 18:06:00 172.72 cm [facility] [place] Weight 2020-11-28 18:06:00 [facility] [place] BMI Calculated 2020-11-28 18:06:00 Memori al [place] Systolic (mm Hg) 2020-10-29 19:18:00 Kenneth rial [place] Diastolic (mm Hg) 2020-10-29 19:18:00 Mem orial [place] Heart Rate 2020-10-29 19:18:00 [facility] [place] Temperature Oral (F) 2020-10-29 19:18:00 98.0 F [facility] [place] Height 2020-10-29 19:18:00 172.72 cm [facility] [place] Weight 2020-10-29 19:18:00 [facility] [place] BMI Calculated 2020-10-29 19:18:00 Memori al Jet Heart Rate 2020-10-28 05:39:00 [facility] [place] Respitory Rate 2020-10-28 05:39:00 Memori al [place] Systolic (mm Hg) 2020-10-28 05:39:00 Kenneth rial [place] Diastolic (mm Hg) 2020-10-28 05:39:00 Mem orial [place] Heart Rate 2020-10-28 04:39:00 [facility] [place] Respitory Rate 2020-10-28 04:39:00 Memori al [place] Systolic (mm Hg) 2020-10-28 04:39:00 Kenneth rial [place] Diastolic (mm Hg) 2020-10-28 04:39:00 Mem orial Jet Height 2020-10-28 03:37:00 172.72 cm [facility] BMI Calculated 2020-10-28 03:37:00 Memori al [place] Weight 2020-10-28 03:37:00 [facility] [place] Systolic (mm Hg) 2020-10-28 03:37:00 Kenneth rial [place] Diastolic (mm Hg) 2020-10-28 03:37:00 Mem orial [place] Heart Rate 2020-10-28 03:37:00 [facility] [place] Respitory Rate 2020-10-28 03:37:00 Memori al [place] Temperature Oral (F) 2020-10-28 03:37:00 97.9 F [facility] [place] Systolic (mm Hg) 2020-10-08 18:32:00 Kenneth rial [place] Diastolic (mm Hg) 2020-10-08 18:32:00 Mem orial [place] Heart Rate 2020-10-08 18:32:00 [facility] [place] Temperature Oral (F) 2020-10-08 18:32:00 98.7 F [facility] [place] Height 2020-10-08 18:32:00 172.72 cm [facility] [place] Weight 2020-10-08 18:32:00 [facility] [place] BMI Calculated 2020-10-08 18:32:00 Memori al [place] Height 2018-05-23 11:44:00 172.72 cm [facility] [place] Weight 2018-05-23 11:44:00 [facility] [place] BMI Calculated 2018-05-23 11:44:00 Memori al Jet Temperature Oral (F) 2018-05-23 11:44:00 97.7 F [facility] [place] Heart Rate 2018-05-23 11:44:00 [facility] [place] Respitory Rate 2018-05-23 11:44:00 Memori al [place] Systolic (mm Hg) 2018-05-23 11:44:00 Kenneth rial [place] Diastolic (mm Hg) 2018-05-23 11:44:00 Mem orial [place] Respitory Rate 2016-12-19 03:45:00 Memori al [place] Heart Rate 2016-12-19 03:45:00 [facility] [place] Systolic (mm Hg) 2016-12-19 03:45:00 Kenneth rial [place] Diastolic (mm Hg) 2016-12-19 03:45:00 Mem orial [place] Temperature Oral (F) 2016-12-19 03:45:00 97.5 F [facility] [place] Weight 2016-12-19 01:46:00 [facility] [place] Temperature Oral (F) 2016-12-19 01:46:00 97.8 F [facility] [place] Heart Rate 2016-12-19 01:46:00 [facility] [place] Systolic (mm Hg) 2016-12-19 01:46:00 Kenneth rial [place] Diastolic (mm Hg) 2016-12-19 01:46:00 Mem orial [place] Respitory Rate 2016-12-19 01:46:00 Memori al [place] Respitory Rate 2015-10-01 01:19:00 Memori al [place] Systolic (mm Hg) 2015-10-01 01:19:00 Kenneth rial [place] Diastolic (mm Hg) 2015-10-01 01:19:00 Mem orial [place] Heart Rate 2015-10-01 01:19:00 [facility] [place] Temperature Oral (F) 2015-10-01 01:19:00 97.9 F [facility] [place] BMI Calculated 2015-10-01 00:57:00 Memori al Jet Weight 2015-10-01 00:57:00 [facility] [place] Height 2015-10-01 00:57:00 170.18 cm [facility] [place] Systolic (mm Hg) 2015-10-01 00:57:00 Kenneth rial [place] Diastolic (mm Hg) 2015-10-01 00:57:00 Mem orial [place] Temperature Oral (F) 2015-10-01 00:57:00 97.9 F [facility] [place] Respitory Rate 2015-10-01 00:57:00 Memori al Jet Heart Rate 2015-10-01 00:57:00 [facility] Jet Procedures Procedure Date / Time Performing Clinician Source Performed POCT GLUCOSE (AUTOMATED) 2022-02-11 13:03:00 Marc Chris [facility] BASIC METABOLIC PANEL (NA, 2022-02-11 09:17:00 Coleen Ayala [facility] K, CL, CO2, GLUCOSE, BUN, Medica l Branch CREATININE, CA) CBC WITH DIFF 2022-02-11 09:17:00 Coleen Ayala [facility] POCT GLUCOSE (AUTOMATED) 2022-02-11 01:30:00 Marc Chris [facility] TRANSFUSE PACKED RBC 2022-02-10 22:09:00 Coleen Ayala [facility] PREPARE PACKED RBC 2022-02-10 22:00:42 Coleen Ayala [facility] POCT GLUCOSE (AUTOMATED) 2022-02-10 21:46:00 Marc Chris [facility] POCT GLUCOSE (AUTOMATED) 2022-02-10 16:43:00 Marc Chris [facility] HB ABO GROUPING 2022-02-10 15:58:00 Coleen Ayala [facility] URINALYSIS 2022-02-10 13:46:00 Jaron Moreno [facility] UREA NITROGEN, URINE 2022-02-10 13:46:00 Jaron Moreno [facility] SODIUM, URINE RANDOM 2022-02-10 13:46:00 Jaron Moreno [facility] PROTEIN CREAT RATIO URINE 2022-02-10 13:46:00 Jaron Moreno [facility] POCT GLUCOSE (AUTOMATED) 2022-02-10 12:28:00 Marc Chris [facility] PHOSPHORUS 2022-02-10 10:39:00 Jaron Moreno [facility] URIC ACID 2022-02-10 10:39:00 Jaron Moreno [facility] MAGNESIUM 2022-02-10 10:39:00 Jaron Moreno [facility] COMP. METABOLIC PANEL 2022-02-10 10:39:00 Jaron Moreno [facility] ([id number] CBC WITH DIFF 2022-02-10 10:39:00 Jamie Coleenceleste Payne [facility] RETICULOCYTES AUTOMATED 2022-02-10 10:39:00 Naomi [facility] POCT GLUCOSE (AUTOMATED) 2022-02-10 01:56:00 Marc Chris [facility] BASIC METABOLIC PANEL (NA, 2022-02-09 22:19:00 Coleen Ayala [facility] K, CL, CO2, GLUCOSE, BUN, Medica l Branch CREATININE, CA) HEMOGLOBIN 2022-02-09 22:16:00 Coleen Ayala [facility] CBC WITH DIFF 2022-02-09 22:16:00 Jamie [facility] POCT GLUCOSE (AUTOMATED) 2022-02-09 21:25:00 Marc Chris [facility] POCT GLUCOSE (AUTOMATED) 2022-02-09 16:55:00 Marc Chris [facility] DUPLEX ARTERIAL LEG LEFT - 2022-02-09 15:27:00 Marc Chris [facility] BY VASCULAR LAB [facility] POCT GLUCOSE (AUTOMATED) 2022-02-09 12:50:00 Marc Chris [facility] MAGNESIUM 2022-02-09 10:06:00 Marc Chris [facility] BASIC METABOLIC PANEL (NA, 2022-02-09 10:06:00 Marc Chris [facility] K, CL, CO2, GLUCOSE, BUN, Medica l Branch CREATININE, CA) CBC WITH DIFF 2022-02-09 10:06:00 Marc Chris [facility] acute hospital N-TERMINAL PRO-BNP 2022-02-09 10:06:00 Coleen Ayala [facility] POCT GLUCOSE (AUTOMATED) 2022-02-09 01:40:00 Marc Chris [facility] XR FOOT 3+ VW LEFT 2022-02-08 22:40:41 Don Kirby [facility] POCT GLUCOSE (AUTOMATED) 2022-02-08 21:57:00 Marc Chris [facility] POCT GLUCOSE (AUTOMATED) 2022-02-08 16:38:00 Marc Chris [facility] POCT GLUCOSE (AUTOMATED) 2022-02-08 13:22:00 Marc Chris [facility] POCT GLUCOSE (AUTOMATED) 2022-02-08 12:39:00 Marc Chris [facility] MRSA / MSSA SCREEN BY PCR, 2022-02-08 08:48:00 Marc Chris [facility] COVID-19 (ID NOW RAPID 2022-02-08 06:38:00 Thanh Toney [facility] TESTING) Medical Branch LAB ONLY COVID 2022-02-08 06:38:00 Thanh Toney [facility] INTERPRETATION [facility] BLOOD CULTURE SCREEN 2022-02-08 06:34:00 Thanh Toney [facility] PHOSPHORUS 2022-02-08 06:34:00 Marc Chris [facility] acute hospital FERRITIN SERUM 2022-02-08 06:34:00 Maddie [facility] THYROID STIMULATING 2022-02-08 06:34:00 Marc Chris [facility] HORMONE [facility] BASIC METABOLIC PANEL (NA, 2022-02-08 06:34:00 Dawna [facility] K, CL, CO2, GLUCOSE, BUN, Medica l Branch CREATININE, CA) IRON PANEL 2022-02-08 06:34:00 Maddie [facility] CBC WITH DIFF 2022-02-08 06:34:00 Dawna [facility] GLYCOSYLATED HEMOGLOBIN 2022-02-08 06:34:00 Maddie [facility] (A1C) [facility] NOTICE OF PRIVACY 2022-02-08 06:14:55 Doctor Unassigned, [facility] PRACTICES [place] [facility] CONSENT/REFUSAL FOR 2022-02-08 06:14:19 Doctor Unassneal, [facility] DIAGNOSIS AND TREATMENT [place] [facility] POCT GLUCOSE (AUTOMATED) 2021-07-20 17:39:00 Naomi De [facility] POCT GLUCOSE (AUTOMATED) 2021-07-20 13:47:00 Naomi De [facility] ALBUMIN 2021-07-20 11:36:00 Jaron Moreno [facility] URIC ACID 2021-07-20 11:36:00 Jaron Moreno [facility] BASIC METABOLIC PANEL (NA, 2021-07-20 11:36:00 Coleen Ayala [facility] K, CL, CO2, GLUCOSE, BUN, Medica l [place] CREATININE, CA) CBC WITH DIFF 2021-07-20 11:36:00 Coleen Ayala [facility] N-TERMINAL PRO-BNP 2021-07-20 04:03:00 Coleen Ayala [facility] POCT GLUCOSE (AUTOMATED) 2021-07-20 03:45:00 Naomi De [facility] POCT GLUCOSE (AUTOMATED) 2021-07-20 03:01:00 Naomi De [facility] POCT GLUCOSE (AUTOMATED) 2021-07-19 22:59:00 Naomi De [facility] POCT GLUCOSE (AUTOMATED) 2021-07-19 17:19:00 Naomi De [facility] POCT GLUCOSE (AUTOMATED) 2021-07-19 13:42:00 Naomi De [facility] URIC ACID 2021-07-19 11:51:00 Jaron Moreno [facility] MAGNESIUM 2021-07-19 11:51:00 Jaron Moreno [facility] COMP. METABOLIC PANEL 2021-07-19 11:51:00 Jaron Moreno [facility] ([id number]) [facility] CBC WITH DIFF 2021-07-19 11:51:00 Coleen Ayala [facility] URINALYSIS 2021-07-19 11:51:00 Jaron Moreno [facility] N-TERMINAL PRO-BNP 2021-07-19 11:51:00 Jaron Moreno [facility] PROTEIN CREAT RATIO URINE 2021-07-19 11:51:00 [facility] 2021-07-19 11:51:00 Jaron Moreno [facility] PREPARE PACKED RBC 2021-07-19 08:09:14 Coleen Ayala [facility] ABORH CONFIRMATION (LAB 2021-07-19 03:18:00 Naomi De [facility] ONLY) [facility] POCT GLUCOSE (AUTOMATED) 2021-07-19 02:43:00 Naomi De [facility] HB ABO GROUPING 2021-07-19 02:11:00 Coleen Ayala [facility] POCT GLUCOSE (AUTOMATED) 2021-07-18 22:48:00 Naomi De [facility] POCT GLUCOSE (AUTOMATED) 2021-07-18 17:14:00 Naomi De [facility] POCT GLUCOSE (AUTOMATED) 2021-07-18 13:45:00 Naomi De [facility] URINALYSIS 2021-07-18 11:31:00 Jaron Moreno [facility] PROTEIN CREAT RATIO URINE 2021-07-18 11:31:00 Jaron Moreno [facility] URIC ACID 2021-07-18 10:07:00 Jaron Moreno [facility] MAGNESIUM 2021-07-18 10:07:00 Naomi De [facility] VITAMIN B12, LEVEL 2021-07-18 10:07:00 Jaron Moreno [facility] FOLATE 2021-07-18 10:07:00 Jaron Moreno [facility] BASIC METABOLIC PANEL (NA, 2021-07-18 10:07:00 Naomi De [facility] K, CL, CO2, GLUCOSE, BUN, Medica l Branch CREATININE, CA) CBC WITH DIFF 2021-07-18 10:07:00 Naomi De [facility] N-TERMINAL PRO-BNP 2021-07-18 10:07:00 Jaron Moreno [facility] PHOSPHORUS 2021-07-18 10:07:00 Jaron Moreno [facility] POCT GLUCOSE (AUTOMATED) 2021-07-18 04:18:00 Naomi De [facility] POCT GLUCOSE (AUTOMATED) 2021-07-17 21:59:00 Naomi De [facility] TRANSTHORACIC ECHO (TTE) 2021-07-17 21:51:00 Naomi De [facility] US RETROPERITONEAL LIMITED 2021-07-17 20:46:49 Naomi De [facility] POCT GLUCOSE (AUTOMATED) 2021-07-17 20:22:00 Naomi De [facility] POCT GLUCOSE (AUTOMATED) 2021-07-17 19:52:00 Santino, Naomi [facility] URINALYSIS 2021-07-17 19:44:00 Naomi De [facility] URINE CULTURE 2021-07-17 19:44:00 Naomi De [facility] CREATININE, URINE RANDOM 2021-07-17 19:44:00 Naomi De [facility] SODIUM, URINE RANDOM 2021-07-17 19:44:00 Naomi De [facility] COVID-19 (ID NOW RAPID 2021-07-17 19:39:00 Marco Antonio Dunbar [facility] TESTING) Medical Branch LAB ONLY COVID 2021-07-17 19:39:00 Singer [facility] HB ECG ROUTINE & RHYTHM 2021-07-17 18:45:35 Singer [facility] XR CHEST 1 VW 2021-07-17 18:34:45 Singer [facility] TROPONIN I 2021-07-17 18:21:00 Singer [facility] COMP. METABOLIC PANEL 2021-07-17 18:21:00 Marco Antonio Dunbar [facility] ([id number]) [facility] IRON PANEL 2021-07-17 18:21:00 Coleen Ayala [facility] CBC WITH DIFF 2021-07-17 18:21:00 Singer [facility] GLYCOSYLATED HEMOGLOBIN 2021-07-17 18:21:00 Coleen Ayala Kerry [facility] (A1C) [facility] URINALYSIS 2021-07-17 18:21:00 Singer [facility] N-TERMINAL PRO-BNP 2021-07-17 18:21:00 Singer Marco Antonio [facility] PHOSPHORUS 2021-07-17 18:21:00 Coleen Ayala [facility] ALBUMIN 2021-07-17 18:21:00 Coleen Ayala [facility] SURGICAL PATHOLOGY REQUEST 2021-06-26 17:06:00 Chun Becker [facility] RENAL BIOPSY 2021-06-26 16:50:32 PedroChun POC GLUCOSE 2021-06-26 15:55:00 Chun Becker Colonoscopy and biopsy of 2016-05-25 00:00:00 Me yessica Chaudhary colon<sup>1</sup> Endoscopy and 2016-05-25 00:00:00 [facility] rivas Biopsy<sup>2</sup> Plan of Care Planned Activity Planned Date Details Comments Source Future Scheduled 2022-05-10 COVID-19 VACCINE (#1) [facility] Test 01:24:53 [code = COVID-19 VACCINE (#1)] Future Scheduled 2022-05-10 Pneumococcal Vaccine: [facility] Test 01:24:53 Pediatrics (0 to 5 Years) and At-Risk Patients (6 to 64 Years) (1 - PCV) [code = Pneumococcal Vaccine: Pediatrics (0 to 5 Years) and At-Risk Patients (6 to 64 Years) (1 - PCV)] Future Scheduled 2022-05-10 DIABETES: RETINAL EYE [facility] Test 01:24:53 EXAM [code = DIABETES: RETINAL EYE EXAM] Future Scheduled 2022-05-10 [facility]IC [facility] Test 01:24:53 [code = DIABETIC FOOT EXAM] Future Scheduled 2022-05-10 URINE [facility]AL[facility]IN [facility] Test 01:24:53 [code = URINE MICROALBUMIN] Future Scheduled 2022-05-10 Hepatitis C screening [facility] Test 01:24:53 (procedure) [code = 983897517] Future Scheduled 2022-05-10 [facility]ACCINE [facility] 01:24:53 [code = INFLUENZA VACCINE] Encounters Start End Encounter Admission Attending Care Care Encounter Source Date/Time Date/Time Type Type Clinicians Facility Department ID 2022-02-12 2022-02-12 Transition STEPHON Yoo [id number] Univers 00:00:00 00:00:00 of Care Bertha TIWARI [id number] i ty of JORDYN [id number] Joan monroe [id number] [place] [address] Branch 2022-02-08 2022-02-11 Inpatient Eugene DE GAMELITA [facility] [id number] Univers 01:21:00 10:23:00 NAOMI ferrera [facility] 2022-02-08 2022-02-11 [facility] Thanh Toney [facility] 1.2.840 .114 [id number] Univers 01:21:00 10:23:00 Encounter Marc Chris [id number] ity of Naomi De [id number] [facility] [id number] [facility] 081 Branch 2021-07-22 2021-07-22 Transition YooBRANDINTobi [id number] Univers 00:00:00 00:00:00 of Care Bertha Eli TIWARI [id number] i ty of JORDYN [id number] [facility] [id number] [facility] 403 Branch 2021-07-17 2021-07-20 Inpatient X SANTINO [facility] PRISCILLA [id number] Univers 11:38:00 15:33:00 NAOMI toro [facility] 2021-07-17 2021-07-20 [facility] DunbarMarco Antonio [facility] 1.2.840.1 [id number] Univers 11:38:00 15:33:00 Encounter Naomi De [id number] ity AWILDA [id number] [facility] [id number] [address] 2021-07-16 2021-07-17 Emergency nullFlavo [facility] [id number] Memoria 16:58:41 04:35:00 r [place] 25 l [facility] 2021-07-16 2021-07-17 Emergency nullFlavo [facility] [id number] Memoria 16:58:41 04:35:00 r Jet 25 l [facility] 2021-07-16 2021-07-16 Outpatient Berta, MHPL MHPL [id number] 10:58:41 22:35:00 [facility] 2021-07-16 2021-07-16 Emergency E BERTA, MHBL MHBL [id number] MHBL 10:58:00 22:35:00 SAB 2021-07-04 2021-07-05 Outpatient nullFlavo [facility] [id number] Memoria 19:00:00 05:59:59 r Primary 26 l Care Sonido Feng 2021-07-04 2021-07-05 [place] [id number] Memoria 19:00:00 05:59:59 r Primary 26 l Lloyd Feng 2021-07-04 2021-07-04 Outpatient Devante [facility] [id number] 13:00:00 23:59:59 Oswaldo Kenton Hicks 2021-07-04 2021-07-04 Outpatient [facility] [id number] Memoria 13:00:00 13:00:00 26 l Jet 2021-06-26 2021-06-26 [facility] Pedro, 1.2.840.1 [id number] Methodi 08:54:38 23:59:00 Encounter Chun [id number] [facility] 3.430.2.7 Hospit a .3.665714 l .8 2021-06-26 2021-06-26 Outpatient PEDRO [facility] [id number] Happy 00:00:00 00:00:00 CHUN 205 Method i 2021-06-26 2021-06-26 Travel 1.2.840.1 [id number] [id number] Methodi 00:00:00 00:00:00 46497.1.1 350.1.13.43 2 3.430.2.7 0.2.7.3.698 spita .3.943903 084.8 l .8 2021-06-21 2021-06-21 Outpatient PEDRO [facility] [id number] Happy 00:00:00 00:00:00 CHUN 656 Method i 2021-06-19 2021-06-19 Outpatient PEDRO [facility] [id number] Happy 00:00:00 00:00:00 CHUN 822 Method i 2021-04-30 2021-05-01 [place] [id number] Memoria 16:15:00 05:59:59 r Primary 25 l Lloyd Feng 2021-04-30 2021-05-01 [place] [id number] Memoria 16:15:00 05:59:59 r Primary 25 l Lloyd Feng 2021-04-30 2021-04-30 Outpatient Devante MG [place] [id number] 10:15:00 23:59:59 Oswaldo Hicks 2021-04-30 2021-04-30 Outpatient MHIE MHIE [id number] Memoria 10:15:00 10:15:00 25 l Jet 2021-04-22 2021-04-23 Outpt Diag nullFlavo [facility] [id number] Memoria 19:19:00 05:59:00 Services r Outpatient 01 l Imaging Matilde Higgins 2021-04-22 2021-04-23 Outpt Diag nullFlavo [facility] [id number] Memoria 19:19:00 05:59:00 Services r Outpatient 01 l Eddy Higgins 2021-04-22 2021-04-22 Outpatient Ahmed, 2.16.840. 2.16.840.1. 3 [id number] 13:19:00 23:59:00 Chiquis [id number] 163146.3.61 01 Sage 3.615.101 5.101 2021-04-09 2021-04-10 [place] [id number] Memoria 16:15:00 05:59:59 r Primary 24 l Lloyd Feng 2021-04-09 2021-04-10 [place] [id number] Memoria 16:15:00 05:59:59 r Primary 24 l Lloyd Feng 2021-04-09 2021-04-09 Outpatient Rich, MG [place] [id number] 10:15:00 23:59:59 Tosha R 24 2021-04-09 2021-04-09 Outpatient MHIE IE [id number] Memoria 10:15:00 10:15:00 24 hamilton MyersJet 2021-03-27 2021-03-28 [place] [id number] Memoria 21:00:00 04:59:59 r Primary 23 l Care Sonido Feng 2021-03-27 2021-03-28 [place] [id number] Memoria 21:00:00 04:59:59 r Primary 23 l Care Sonido Feng 2021-03-27 2021-03-27 Outpatient Devante [facility] [id number] 16:00:00 23:59:59 Oswaldo Hicks 2021-03-27 2021-03-27 Outpatient MATTY STARR [id number] Memoria 16:00:00 16:00:00 23 l Jet 2021-03-25 2021-03-25 Emergency nullFlavo [facility] [id number] Memoria 04:24:05 06:17:00 r Jet 24 l [place] Ping 2021-03-25 2021-03-25 Emergency nullFlavo [facility] [id number] Memoria 04:24:05 06:17:00 r Jet 24 l [place] Ping 2021-03-24 2021-03-25 Outpatient Simeon, SL SL [id number] 23:24:05 01:17:00 Teetee Mable Bernard 2021-03-24 2021-03-25 Emergency E SIMEON, MHFB FB [id number] MHFB 23:24:00 01:17:00 TEETEE 2021-02-12 2021-02-12 Ambulatory nullFlavo MH Urgent [id number] Memoria 15:00:00 15:00:00 Pre-Reg r Care 22 l [place] Jet 2021-02-12 2021-02-12 Ambulatory nullFlavo MH Urgent [id number] Memoria 15:00:00 15:00:00 Pre-Reg r Care 22 l [place] Jet 2021-02-12 2021-02-12 Outpatient MATTY STARR [id number] Memoria 10:00:00 10:00:00 22 hamilton [place] 2021-02-12 2021-02-12 [facility] [id number] 10:00:00 10:00:00 Castro Roxanna Hung 2021-01-31 2021-02-01 Between nullFlavo MG [id number] Memoria 19:54:34 19:54:34 Visit r Primary 23 l Care Sonido Feng 2021-01-31 2021-02-01 Between nullFlavo MG [id number] Memoria 19:54:34 19:54:34 Visit r Primary 23 l Lloyd Feng 2021-01-31 2021-02-01 Outpatient MHMG MG [id number] 14:54:34 14:54:34 23 2021-01-31 2021-02-01 [place] [id number] Memoria 21:00:00 04:59:59 r Primary 21 l Lloyd Feng 2021-01-31 2021-02-01 [place] [id number] Memoria 21:00:00 04:59:59 r Primary 21 l Lloyd Feng 2021-01-31 2021-01-31 Outpatient Devante MG MG [id number] 16:00:00 23:59:59 Oswaldo 21 Kurt 2021-01-31 2021-01-31 Outpatient MHIE MHIE [id number] Memoria 16:00:00 16:00:00 21 hamilton Chaudhary 2020-11-29 2020-11-30 Between nullFlavo MG [id number] Memoria 23:37:34 23:37:34 Visit r Primary 22 l Lloyd Feng 2020-11-29 2020-11-30 Between nullFlavo MG [id number] Memoria 23:37:34 23:37:34 Visit r Primary 22 l Lloyd Feng 2020-11-29 2020-11-30 Outpatient MG MG [id number] 18:37:34 18:37:34 22 2020-11-28 2020-11-29 [place] [id number] Memoria 18:00:00 04:59:59 r Primary 20 l Lloyd Feng 2020-11-28 2020-11-29 [place] [id number] Memoria 18:00:00 04:59:59 r Primary 20 l Lloyd Feng 2020-11-28 2020-11-28 Outpatient Devante MG MG [id number] 13:00:00 23:59:59 Oswaldo 20 Kurt 2020-11-28 2020-11-28 Outpatient MHIE MHIE [id number] Memoria 13:00:00 13:00:00 20 hamilton Chaudhary 2020-10-29 2020-10-30 [place] [id number] Memoria 19:15:00 04:59:59 r Primary 19 l Care Sonido Feng 2020-10-29 2020-10-30 [place] [id number] Memoria 19:15:00 04:59:59 r Primary 19 l Lloyd Feng 2020-10-29 2020-10-29 Outpatient Devante [facility] [id number] 14:15:00 23:59:59 Oswaldo Hicks 2020-10-29 2020-10-29 [facility] [id number] Memoria 14:15:00 14:15:00 19 hamilton Chaudhary 2020-10-28 2020-10-28 Emergency nullFlavo [facility] [id number] Memoria 03:16:58 06:20:00 kylie Chaudhary 21 l [place] Herma 2020-10-28 2020-10-28 Emergency nullFlavo [facility] [id number] Memoria 03:16:58 06:20:00 r Jet 21 l [place] Pign 2020-10-27 2020-10-28 Outpatient Cedric, SL SL [id number] 22:16:58 01:20:00 Rubi GibsongibranCarlos 2020-10-27 2020-10-28 [id number] FB 22:16:00 01:20:00 RUBI 2020-10-22 2020-10-23 Between nullFlavo MG [id number] Memoria 14:20:50 14:20:50 Visit r Primary 20 l Care Sonido Feng 2020-10-22 2020-10-23 Between nullFlavo MG [id number] Memoria 14:20:50 14:20:50 Visit r Primary 20 l Care Sonido Feng 2020-10-22 2020-10-23 [facility] [id number] 09:20:50 09:20:50 20 2020-10-16 2020-10-17 Between nullFlavo MG [id number] Memoria 15:31:10 15:31:10 Visit r Primary 19 l Care Sonido Feng 2020-10-162020-10-17 Between nullFlavo [facility]MG [id number] Memoria 15:31:10 15:31:10 Visit r Primary 19 l Lloyd Feng 2020-10-16 2020-10-17 Outpatient MHMG MHMG [id number] 10:31:10 10:31:10 19 2020-10-11 2020-10-13 Phone nullFlavo [facility] [id number] Memoria 21:08:06 04:59:59 Message r Primary 05 l Lloyd Feng 2020-10-11 2020-10-13 Phone nullFlavo MHMG [id number] Memoria 21:08:06 04:59:59 Message r Primary 05 l Lloyd Feng 2020-10-11 2020-10-12 Outpatient MHMG MHMG [id number] 16:08:06 23:59:59 05 2020-10-08 2020-10-09 Outpatient nullFlavo [facility] [id number] Memoria 18:30:00 04:59:59 r Primary 18 l Lloyd Feng 2020-10-08 2020-10-09 Outpatient nullFlavo [facility] [id number] Memoria 18:30:00 04:59:59 r Primary 18 l Lloyd Feng 2020-10-08 2020-10-08 Outpatient Devante, MHMG MHMG [id number] 13:30:00 23:59:59 Oswaldo Hicks 2020-10-08 2020-10-08 Outpatient MHIE MHIE [id number] Memoria 13:30:00 13:30:00 18 [facility] 2018-05-23 2018-05-23 Emergency nullFlavo [facility] [id number] Memoria 11:42:00 12:21:00 kylie Jet [address] [place] [address] 2018-05-23 2018-05-23 Emergency nullFlavo [facility] [id number] Memoria 11:42:00 12:21:00 kylie Jet [address] [place] [address] 2018-05-23 2018-05-23 Outpatient Candace, MHPL MHPL [id number] 05:42:00 06:21:00 Travis Owens 2017-04-10 2017-04-10 Ambulatory nullFlavo [facility] [id number] Memoria 20:35:00 20:35:00 Pre-Reg r Primary 15 l Care Kayley Feng nn Brayan 2017-04-10 2017-04-10 Ambulatory nullFlavo [facility] [id number] Memoria 20:35:00 20:35:00 Pre-Reg r Primary 15 l Care Kayley Schmidt 2017-04-10 2017-04-10 Outpatient MHIE MHIE [id number] Memoria 14:35:00 14:35:00 15 hamilton Chaudhary 2017-04-10 2017-04-10 Outpatient Nicknamita, MHMG MHMG [id number] 14:35:00 14:35:00 Ednora John 2017-03-25 2017-03-25 Outpatient MHIE MHIE [id number] Memoria 13:30:00 13:30:00 17 hamilton Chaudhary 2017-03-25 2017-03-25 Outpatient MHIE MHIE [id number] Memoria 13:30:00 13:30:00 17 hamilton Chaudhary 2017-03-24 2017-03-24 Outpatient MHIE MHIE [id number] Memoria 10:30:00 10:30:00 16 hamilton Chaudhary 2017-03-24 2017-03-24 Outpatient MHIE MHIE [id number] Memoria 10:30:00 10:30:00 16 hamilton Chaudhary 2017-03-13 2017-03-13 Outpatient MHIE MHIE [id number] Memoria 14:50:00 14:50:00 14 hamilton Chaudhary 2017-03-13 2017-03-13 Outpatient MHIE MHIE [id number] Memoria 14:50:00 14:50:00 14 hamilton Chaudhary 2017-03-13 2017-03-13 Outpatient MHIE MHIE [id number] Memoria 13:35:00 13:35:00 13 hamilton Chaudhary 2017-03-13 2017-03-13 Outpatient MHIE MHIE [id number] Memoria 13:35:00 13:35:00 13 hamiltno Chaudhary 2017-03-02 2017-03-02 Outpatient MHIE MHIE [id number] Memoria 08:30:00 08:30:00 12 hamilton Chaudhary 2017-03-02 2017-03-02 Outpatient MHIE MHIE [id number] Memoria 08:30:00 08:30:00 12 hamilton Chaudhary 2017-02-09 2017-02-10 Outpatient nullFlavo [facility] [id number] Memoria 11:19:00 04:59:00 r Jet 07 [facility] 2017-02-09 2017-02-10 Outpatient nullFlavo [facility] [id number] Memoria 11:19:00 04:59:00 r Jet 07 [facility] 2017-02-09 2017-02-09 Outpatient Cortes, MHSE MHSE [id number] 06:19:00 23:59:00 Adiel Lee 2017-01-28 2017-01-28 Outpatient MHIE MHIE [id number] Memoria 09:30:00 09:30:00 10 hamilton Chaudhary 2017-01-28 2017-01-28 Outpatient MHIE MHIE [id number] Memoria 09:30:00 09:30:00 10 hamilton Chaudhary 2017-01-23 2017-01-23 Outpatient MHIE MHIE [id number] Memoria 10:00:00 10:00:00 11 hamilton Chaudhary 2017-01-23 2017-01-23 Outpatient MHIE MHIE [id number] Memoria 10:00:00 10:00:00 11 hamilton Chaudhary 2017-01-23 2017-01-23 Outpatient MHIE MHIE [id number] Memoria 09:30:00 09:30:00 09 hamilton Chaudhary 2017-01-23 2017-01-23 Outpatient MHIE MHIE [id number] Memoria 09:30:00 09:30:00 09 hamilton Chaudhary 2017-01-14 2017-01-14 Outpatient MHIE MHIE [id number] Memoria 10:00:00 10:00:00 08 hamilton Chaudhary 2017-01-14 2017-01-14 Outpatient MHIE MHIE [id number] Memoria 10:00:00 10:00:00 08 hamilton Chaudhary 2017-01-08 2017-01-08 Outpatient MHIE MHIE [id number] Memoria 11:15:00 11:15:00 07 hamilton Chaudhary 2017-01-08 2017-01-08 Outpatient MHIE MHIE [id number] Memoria 11:15:00 11:15:00 07 hamilton Chaudhary 2017-01-02 2017-01-02 Outpatient MHIE MHIE [id number] Memoria 13:30:00 13:30:00 06 hamilton Chaudhary 2017-01-02 2017-01-02 Outpatient MHIE MHIE [id number] Memoria 13:30:00 13:30:00 06 hamilton Chaudhary 2016-12-19 2016-12-19 Outpatient MHIE MHIE [id number] Memoria 11:15:00 11:15:00 05 hamilton Chaudhary 2016-12-19 2016-12-19 Outpatient MHIE MHIE [id number] Memoria 11:15:00 11:15:00 05 hamilton Chaudhary 2016-12-19 2016-12-19 [facility] [id number] Memoria 01:46:00 04:01:00 r Jet 05 l [place] [facility] 2016-12-19 2016-12-19 Emergency [facility] [id number] [facility]oria 01:46:00 04:01:00 r Jet 05 hamilton [place] [facility] 2016-12-18 2016-12-18 Outpatient Mejias, MHSL MHSL [id number] 20:46:00 23:01:00 Jose Martin Myersan 2016-12-10 2016-12-11 Outpt Diag nullFlavo [facility] [id number] Memoria 18:57:00 04:59:00 Services r Outpatient 00 l Imaging [facility] 2016-12-10 2016-12-11 Outpt Diag nullFlavo [facility] [id number] Memoria 18:57:00 04:59:00 Services r Outpatient 00 l [facility] 2016-12-10 2016-12-10 Outpatient Walemertrios, MHOIP MHOIP [id number] 13:57:00 23:59:00 Oswaldo Hicks 2016-12-09 2016-12-09 Outpatient MHIE MHIE [id number] Memoria 14:15:00 14:15:00 04 hamilton Chaudhary 2016-12-09 2016-12-09 Outpatient MHIE MHIE [id number] Memoria 14:15:00 14:15:00 04 hamilton Chaudhary 2016-11-12 2016-11-12 Outpatient MHIE MHIE [id number] Memoria 08:15:00 08:15:00 03 hamilton Chaudhary 2016-11-12 2016-11-12 Outpatient MHIE MHIE [id number] Memoria 08:15:00 08:15:00 03 hamilton Chaudhary 2016-04-23 2016-04-23 Outpatient MHIE EDELIE [id number] Memoria 09:00:00 09:00:00 02 hamilton Chaudhary 2016-04-23 2016-04-23 Outpatient MATTY HOLLINGSWORTHIE [id number] Memoria 09:00:00 09:00:00 02 hamilton Chuadhary 2016-01-02 2016-01-02 Outpatient MATTY HOLLINGSWORTHIE [id number] Memoria 12:15:00 12:15:00 01 hamilton Chaudhary 2016-01-02 2016-01-02 Outpatient MATTY HOLLINGSWORTHIE [id number] Memoria 12:15:00 12:15:00 01 hamilton Chaudhary 2015-10-02 2015-10-02 Outpatient MATTY OHLLINGSWORTHIE [id number] Memoria 11:00:00 11:00:00 00 hamilton Chaudhary 2015-10-02 2015-10-02 Outpatient MATTY STARR [id number] Memoria 11:00:00 11:00:00 00 hamilton [place] 2015-10-01 2015-10-01 EC nullFlavo [facility] [id number] Memoria 00:56:00 01:24:00 Emergency r [place] 01 l [facility] 2015-10-01 2015-10-01 EC nullFlavo [facility] [id number] Memoria 00:56:00 01:24:00 Emergency r [place] 01 [facility] hospital 2015-09-30 2015-09-30 Outpatient PhilSHAHRIAR RUST [id number] 19:56:00 20:24:00 Brett Ayala 2011-02-18 2011-02-18 Outpatient nullFlavo [id number] Memoria 11:26:00 11:26:00 r [place] 70 hamilton Chaudhary 2011-02-18 2011-02-18 Outpatient nullFlavo [id number] Memoria 11:26:00 11:26:00 r [place] 70 [facility] Results Test Description Test Time Test Comments Results Result Comments Source POCT GLUCOSE (AUTOMATED) 2022-02-11 13:05:35 Test Item Value Reference Range Interpretation Comme nts POCT GLU (test code = 4532793787) 150 mg/dL 70-110 H Lab Interpretation (test code = 97653-1) Abnormal General acute hospital GLUCOSE (AUTOMATED)2022-02-11 01:43:39 Test Item Value Reference Range Interpretation Comments POCT GLU (test code = 3282614495) 139 mg/dL 70-110 H Lab Interpretation (test code = Abnormal 03944-5) General acute hospital GLUCOSE (AUTOMATED)2022-02-10 23:54:01 Test Item Value Reference Range Interpretation Comments POCT GLU (test code = 1996138986) 117 mg/dL 70-110 H Lab Interpretation (test code = Abnormal 32966-0) [facility] RBC (in units), 1 Units 2022-02-10 22:00:42 Test Item Value Reference Range Interpretation Comments Cross Match Result Compatible (test code = 4409) ISBT Blood Type Code (test code = 896841) Unit Blood Type (test O Neg code = 4410) Unit Number (test [id number] code = 4411) Blood Expiration Date & Time (test code = 820334) Status Information Issued (test code = 4412) Product Red Blood Cells Identification (test code = 4413) Product Code (test [id number] Performed at [facility] code = 4414) Laboratory Services - [facility] Blood [address] [place], [place] [address]Toll Free: [phone] A No. [id number] General acute hospital GLUCOSE (AUTOMATED)2022-02-10 16:53:21 Test Item Value Reference Range Interpretation Comments POCT GLU (test code = 1027445391) 164 mg/dL 70-110 H Lab Interpretation (test code = Abnormal 47772-9) [facility] Center[facility] and Screen - ONCE [id number] 16:42:38 Test Item Value Reference Range Interpretation Comments ABO & RH (test code A Positive Performe d at [facility] = 20) Laboratory Serv [facility] Blood Bank[address] [place], [place] [address]Toll Free: [phone] A No. [id number] IAT (test code = Negative Performed a t [facility] 1185) Laboratory Serv [facility] Blood Bank[address] [place], [place] [address]Toll Free: [phone] A No. [id number] General acute hospital GLUCOSE (AUTOMATED)2022-02-10 12:41:15 Test Item Value Reference Range Interpretation Comments POCT GLU (test code = 2575758892) 149 mg/dL 70-110 H Lab Interpretation (test code = Abnormal 58332-6) General acute hospital GLUCOSE (AUTOMATED)2022-02-10 02:21:18 Test Item Value Reference Range Interpretation Comments POCT GLU (test code = 8780606257) 162 mg/dL 70-110 H Lab Interpretation (test code = Abnormal 54763-4) General acute hospital GLUCOSE (AUTOMATED)2022-02-09 21:33:23 Test Item Value Reference Range Interpretation Comments POCT GLU (test code = 2582195788) 111 mg/dL 70-110 H Lab Interpretation (test code = Abnormal 78214-5) General acute hospital GLUCOSE (AUTOMATED)2022-02-09 17:16:20 Test Item Value Reference Range Interpretation Comments POCT GLU (test code = 3828950175) 131 mg/dL 70-110 H Lab Interpretation (test code = Abnormal 76003-1) General acute hospital GLUCOSE (AUTOMATED)2022-02-09 13:07:40 Test Item Value Reference Range Interpretation Comments POCT GLU (test code = 5680844475) 127 mg/dL 70-110 H Lab Interpretation (test code = Abnormal 61716-6) General acute hospital GLUCOSE (AUTOMATED)2022-02-09 01:45:02 Test Item Value Reference Range Interpretation Comments POCT GLU (test code = 5665963030) 139 mg/dL 70-110 H Lab Interpretation (test code = Abnormal 59917-3) General acute hospital GLUCOSE (AUTOMATED)2022-02-08 22:09:37 Test Item Value Reference Range Interpretation Comments POCT GLU (test code = 7569891899) 160 mg/dL 70-110 H Lab Interpretation (test code = Abnormal 22153-2) General acute hospital GLUCOSE (AUTOMATED)2022-02-08 16:45:13 Test Item Value Reference Range Interpretation Comments POCT GLU (test code = 5821112865) 135 mg/dL 70-110 H Lab Interpretation (test code = Abnormal 70661-4) General acute hospital GLUCOSE (AUTOMATED)2022-02-08 16:31:21 Test Item Value Reference Range Interpretation Comments POCT GLU (test code = 7046441006) 198 mg/dL 70-110 H Lab Interpretation (test code = Abnormal 39420-9) [facility]2022-02-08 12:50:39 Test Item Value Reference Range Interpretation Comments POCT GLU (test code = 6402249795) 223 mg/dL 70-110 H Lab Interpretation (test code = Abnormal 46657-2) [facility] CenterGlycosylated Hemoglobin (A1C)2022-02-08 11:11:29 Test Item Value Reference Range Interpretation Comments HGB A1C (test code = 5.4 % 4-5.7 4548-4) REBECCA (test code = REBECCA) Reference RangesNormal: <5.7%Prediabetes: 5.7 - 6.4%Diabetes: > 6.5% Lab Interpretation (test Normal code = 75926-6) [facility] CenterFERRITIN [id number] 09:39:54 Test Item Value Reference Range Interpretation Comments FERRITIN (test code = 573.0 ng/mL 18-464 H 2955818539) REBECCA (test code = REBECCA) Biotin has been reported to cause a negative bias, interpret results relative to patient's use of biotin. Lab Interpretation (test Abnormal code = 39379-4) [facility] CenterTHYROID STIMULATING [id number] 09:35:51 Test Item Value Reference Range Interpretation Comments TSH (test code = See_Comment [Automated message] 6417191047) The system [employer] generated this result transmitted ref erence range: 0.45 - 4 .70 mIU/L. The refe rence range was not u sed to interpret this result as normal/abnor mal. Lab Interpretation (test Normal code = 51488-2) [facility] CenterIRON [id number] 09:30:39 Test Item Value Reference Range Interpretation Comments IRON (test code = 5285119884) 50-160 L TIBC (test code = 2097359308) 224 ug/dL 250-410 L % FE SAT (test code = Iron < 10 ug/dl 1391243588) Lab Interpretation (test code Abnormal = 33963-6) [facility] CenterPhosphorus [id number] 09:03:07 Test Item Value Reference Range Interpretation Comments PHOSPHORUS (test code = 1781228219) 5.1 mg/dL 2.5-5 H Lab Interpretation (test code = Abnormal 28820-4) [facility] WITH [id number] 07:18:36 Test Item Value Reference Range Interpretation Comments WBC (test code = See_Comment H [Automated 6690-2) message] The sy stem which generated this result transmitted reference range : 4.20 - 10.70 10*3/?L. The reference range was not used to interpret this result as normal/abnormal . RBC (test code = See_Comment L [Automated 789-8) message] The sy stem which generated this result transmitted reference range : 4.26 - 5.52 10*6/?L. The reference range was not used to interpret this result as normal/abnormal . HGB (test code = 8.3 g/dL 12.2-16.4 L 718-7) HCT (test code = 23.1 % 38.4-49.3 L 4544-3) MCV (test code = 88.5 fL 81.7-95.6 787-2) MCH (test code = 31.8 pg 26.1-32.7 785-6) MCHC (test code = 35.9 g/dL 31.2-35 H 786-4) RDW-SD (test code = 40.4 fL 38.5-51.6 72749-2) RDW-CV (test code = 12.6 % 12.1-15.4 788-0) PLT (test code = See_Comment L [Automated 777-3) message] The sy stem which generated this result transmitted reference range : 150 - 328 10*3/ ?L. The reference r pamela was not used to interpret this result as normal/abnormal . MPV (test code = 11.8 fL 9.8-13 90225-8) IPF % (test code = 4.7 % 1.2-10.7 Platelet count 6881833875) measured by fluorescence method. NRBC/100 WBC (test See_Comment [Automat ed code = 6489858050) message] The system which generated this result transmitted reference range : 0.0 - 10.0 /100 WBCs. The refer ence range was not u sed to interpret th is result as normal/abnormal . NRBC x10^3 (test code See_Comment [Auto mated = 8693693666) message] The s ystem which generated this result transmitted reference range : 10*3/?L. The reference range was not used to interpret this result as normal/abnormal . GRAN MAT (NEUT) % 87.2 % (test code = 770-8) IMM GRAN % (test code 0.90 % = 7387703118) LYMPH % (test code = 4.5 % 736-9) MONO % (test code = 7.2 % 5905-5) EOS % (test code = 0.0 % 713-8) BASO % (test code = 0.2 % 706-2) GRAN MAT x10^3(ANC) 14.04 10*3/uL 1.99-6.95 H (test code = 8325110746) IMM GRAN x10^3 (test 0.15 10*3/uL 0-0.06 H code = 3144114981) LYMPH x10^3 (test 0.72 10*3/uL 1.09-3.23 L code = 731-0) MONO x10^3 (test code 1.16 10*3/uL 0.36-1.02 H = 742-7) EOS x10^3 (test code 0.06-0.53 L = 711-2) BASO x10^3 (test code 0.04 10*3/uL 0.01-0.09 = 704-7) Lab Interpretation Abnormal (test code = 73013-6) [facility] METABOLIC PANEL (NA, K, CL, CO2, GLUCOSE, BUN, CREATININE, CA)2022-02-08 07:15:04 Test Item Value Reference Range Interpretation Comments NA (test code = 133 mmol/L 135-145 L 7863981425) K (test code = 5.1 mmol/L 3.5-5 H 1930928559) CL (test code = 108 mmol/L 98-108 7729314221) CO2 TOTAL (test code = 18 mmol/L 23-31 L 2771977567) AGAP (test code = 2-16 8780401624) BUN (test code = 51 mg/dL 7-23 H 0493748562) GLUCOSE (test code = 258 mg/dL 70-110 H 5353460671) CREATININE (test code = 2.67 mg/dL 0.6-1.25 H 4894125644) CALCIUM (test code = 7.7 mg/dL 8.6-10.6 L 0420890497) eGFR (test code = mL/min/1.73m2 6128379872) REBECCA (test code = REBECCA) Association of Glomerular Filtration Rate (GFR) and Staging of Kidney Disease* + --+ --+ ------+| GFR (mL/min/1.73 m2) ?| With Kidney Damage ?| ?Without Kidney Damage+ --------+ --------+ +| ?>90 ?| ?Stage one ?| ? Normal ?+ ---+ ---+ -------+| ?60-89 ?| ?Stage two ?| ? Decreased GFR ? + --+ --+ ------+| ?30-59 ?| ?Stage three ?| ? Stage three ? + --+ --+ ------+| ?15-29 ?| ?Stage four ? | ? Stage four ?+ ---+ ---+ -------+| ?<15 (or dialysis) ? ?| ?Stage five ? | ? Stage five ?+ ---+ ---+ -------+ *Each stage assumes the associated GFR level has been in effect for at least three months. ?Stages 1 to 5, with or without kidney disease, indicate chronic kidney disease. Notes: Determination of stages one and two (with eGFR >59mL/min/1.73 m2) requires estimation of kidney damage for at least three months as defined by structural or functional abnormalities of the kidney, manifested by either:Pathological abnormalities or Markers of kidney damage (including abnormalities in the composition of the blood or urine or abnormalities in imaging tests). Lab Interpretation Abnormal (test code = 61354-6) General acute hospital GLUCOSE (AUTOMATED)2021-07-20 18:07:00 Test Item Value Reference Range Interpretation Comments POCT GLU (test code = 6379783894) 192 mg/dL 70-110 H Lab Interpretation (test code = Abnormal 83983-5) General acute hospital GLUCOSE (AUTOMATED)2021-07-20 14:06:00 Test Item Value Reference Range Interpretation Comments POCT GLU (test code = 5113107896) 158 mg/dL 70-110 H Lab Interpretation (test code = Abnormal 63500-8) [facility] (NA, K, CL, CO2, GLUCOSE, BUN, CREATININE, CA)2021-07-20 12:34:09 Test Item Value Reference Range Interpretation Comments NA (test code = 138 mmol/L 135-145 8092149114) K (test code = 3.7 mmol/L 3.5-5.0 9432590232) CL (test code = 112 mmol/L 98-108 H 4983452627) CO2 TOTAL (test code = 24 mmol/L 23-31 5972138217) AGAP (test code = 2-16 8607632398) BUN (test code = 38 mg/dL 7-23 H 3274097641) GLUCOSE (test code = 153 mg/dL 70-110 H 6223220727) CREATININE (test code = 1.57 mg/dL 0.60-1.25 H 1048340030) CALCIUM (test code = 7.8 mg/dL 8.6-10.6 L 9703768275) eGFR (test code = mL/min/1.73m2 6376050289) REBECCA (test code = REBECCA) Association of Glomerular Filtration Rate (GFR) and Staging of Kidney Disease* + --+ --+ ------+| GFR (mL/min/1.73 m2) ?| With Kidney Damage ?| ?Without Kidney Damage+ --------+ --------+ +| ?>90 ?| ?Stage one ?| ? Normal ?+ ---+ ---+ -------+| ?60-89 ?| ?Stage two ?| ? Decreased GFR ? + --+ --+ ------+| ?30-59 ?| ?Stage three ?| ? Stage three ? + --+ --+ ------+| ?15-29 ?| ?Stage four ? | ? Stage four ?+ ---+ ---+ -------+| ?<15 (or dialysis) ? ?| ?Stage five ? | ? Stage five ?+ ---+ ---+ -------+ *Each stage assumes the associated GFR level has been in effect for at least three months. ?Stages 1 to 5, with or without kidney disease, indicate chronic kidney disease. Notes: Determination of stages one and two (with eGFR >59mL/min/1.73 m2) requires estimation of kidney damage for at least three months as defined by structural or functional abnormalities of the kidney, manifested by either:Pathological abnormalities or Markers of kidney damage (including abnormalities in the composition of the blood or urine or abnormalities in imaging tests). Lab Interpretation Abnormal (test code = 41189-4) [facility] CenterURIC [id number] 12:34:09 Test Item Value Reference Range Interpretation Comments URIC ACID (test code = 9885078277) 4.7 mg/dL 3.6-8.0 Lab Interpretation (test code = Normal 04549-6) [facility] CenterALB[facility]IN2022-02-26 12:30:48 Test Item Value Reference Range Interpretation Comments ALBUMIN (test code = 1428743728) 2.2 g/dL 3.5-5.0 L Lab Interpretation (test code = Abnormal 82598-1) [facility] CenterCB WITH [id number] 12:05:43 Test Item Value Reference Range Interpretation Comments WBC (test code = See_Comment [Automated 6690-2) message] The sy stem which generated this result transmitted reference range : 4.20 - 10.70 10*3/?L. The reference range was not used to interpret this result as normal/abnormal . RBC (test code = See_Comment L [Automated 789-8) message] The sy stem which generated this result transmitted reference range : 4.26 - 5.52 10*6/?L. The reference range was not used to interpret this result as normal/abnormal . HGB (test code = 10.3 g/dL 12.2-16.4 L 718-7) HCT (test code = 29.2 % 38.4-49.3 L 4544-3) MCV (test code = 86.4 fL 81.7-95.6 787-2) MCH (test code = 30.5 pg 26.1-32.7 785-6) MCHC (test code = 35.3 g/dL 31.2-35.0 H 786-4) RDW-SD (test code = 41.4 fL 38.5-51.6 97665-1) RDW-CV (test code = 13.2 % 12.1-15.4 788-0) PLT (test code = See_Comment [Automated 777-3) message] The sy stem which generated this result transmitted reference range : 150 - 328 10*3/ ?L. The reference r pamela was not used to interpret this result as normal/abnormal . MPV (test code = 11.1 fL 9.8-13.0 85861-7) NRBC/100 WBC (test See_Comment [Automat ed code = 0907926299) message] The system which generated this result transmitted reference range : 0.0 - 10.0 /100 WBCs. The refer ence range was not u sed to interpret th is result as normal/abnormal . NRBC x10^3 (test code <0.01 See_Comment [Auto mated = 9646123504) message] The s ystem which generated this result transmitted reference range : 10*3/?L. The reference range was not used to interpret this result as normal/abnormal . GRAN MAT (NEUT) % 57.8 % (test code = 770-8) IMM GRAN % (test code 0.20 % = 0519387001) LYMPH % (test code = 32.3 % 736-9) MONO % (test code = 6.3 % 5905-5) EOS % (test code = 2.4 % 713-8) BASO % (test code = 1.0 % 706-2) GRAN MAT x10^3(ANC) 2.92 10*3/uL 1.99-6.95 (test code = 3717320430) IMM GRAN x10^3 (test <0.03 0.00-0.06 code = 6050847353) LYMPH x10^3 (test code 1.63 10*3/uL 1.09-3.23 = 731-0) MONO x10^3 (test code 0.32 10*3/uL 0.36-1.02 L = 742-7) EOS x10^3 (test code = 0.12 10*3/uL 0.06-0.53 711-2) BASO x10^3 (test code 0.05 10*3/uL 0.01-0.09 = 704-7) Lab Interpretation Abnormal (test code = 07253-4) [facility] CenterN-[facility]MINAL [id number] 05:17:36 Test Item Value Reference Range Interpretation Comments NT-proBNP (test code 2150 pg/mL See_Comment H [Autom ated = 1534453666) message] The system which generated this result transmitted reference range : <=125. The reference range was not used to interpret this result as normal/abnormal . REBECCA (test code = REBECCA) Biotin has been reported to cause a negative bias, interpret results relative to patient's use of biotin. Lab Interpretation Abnormal (test code = 21646-6) General acute hospital GLUCOSE (AUTOMATED)2021-07-20 03:47:26 Test Item Value Reference Range Interpretation Comments POCT GLU (test code = 7379896113) 211 mg/dL 70-110 H Lab Interpretation (test code = Abnormal 03387-8) General acute hospital GLUCOSE (AUTOMATED)2021-07-20 03:09:06 Test Item Value Reference Range Interpretation Comments POCT GLU (test code = 4659364422) 226 mg/dL 70-110 H Lab Interpretation (test code = Abnormal 28560-6) General acute hospital GLUCOSE (AUTOMATED)2021-07-19 23:02:24 Test Item Value Reference Range Interpretation Comments POCT GLU (test code = 7375601391) 190 mg/dL 70-110 H Lab Interpretation (test code = Abnormal 90770-4) General acute hospital GLUCOSE (AUTOMATED)2021-07-19 17:36:18 Test Item Value Reference Range Interpretation Comments POCT GLU (test code = 8229543240) 191 mg/dL 70-110 H Lab Interpretation (test code = Abnormal 09798-4) General acute hospital GLUCOSE (AUTOMATED)2021-07-19 17:36:13 Test Item Value Reference Range Interpretation Comments POCT GLU (test code = 3793611843) 159 mg/dL 70-110 H Lab Interpretation (test code = Abnormal 64425-2) [facility] [id number] 12:58:28 Test Item Value Reference Range Interpretation Comments NT-proBNP (test code 2390 pg/mL See_Comment H [Autom ated = 9053116219) message] The system which generated this result transmitted reference range : <=125. The reference range was not used to interpret this result as normal/abnormal . REBECCA (test code = REBECCA) Biotin has been reported to cause a negative bias, interpret results relative to patient's use of biotin. Lab Interpretation Abnormal (test code = 30708-5) [facility] METABOLIC PANEL (93589)2021-07-19 12:51:06 Test Item Value Reference Range Interpretation Comments NA (test code = 138 mmol/L 135-145 5934722488) K (test code = 3.9 mmol/L 3.5-5.0 0217047530) CL (test code = 114 mmol/L 98-108 H 2667730956) CO2 TOTAL (test code = 23 mmol/L 23-31 9876537858) AGAP (test code = 2-16 L 9362933890) BUN (test code = 32 mg/dL 7-23 H 1126919634) GLUCOSE (test code = 174 mg/dL 70-110 H 0330456136) CREATININE (test code = 1.65 mg/dL 0.60-1.25 H 1281924762) TOTAL BILI (test code = 0.6 mg/dL 0.1-1.0 6817076850) CALCIUM (test code = 8.1 mg/dL 8.6-10.6 L 9194294068) T PROTEIN (test code = 5.2 g/dL 6.3-8.2 L 8952657442) ALBUMIN (test code = 2.5 g/dL 3.5-5.0 L 2145908277) ALK PHOS (test code = 87 U/L 34-122 4815486321) ALTv (test code = 15 U/L 5-50 1742-6) AST(SGOT) (test code = 30 U/L 13-40 5628605167) eGFR (test code = mL/min/1.73m2 8065614778) REBECCA (test code = REBECCA) Association of Glomerular Filtration Rate (GFR) and Staging of Kidney Disease* + --+ --+ ------+| GFR (mL/min/1.73 m2) ?| With Kidney Damage ?| ?Without Kidney Damage+ --------+ --------+ +| ?>90 ?| ?Stage one ?| ? Normal ?+ ---+ ---+ -------+| ?60-89 ?| ?Stage two ?| ? Decreased GFR ? + --+ --+ ------+| ?30-59 ?| ?Stage three ?| ? Stage three ? + --+ --+ ------+| ?15-29 ?| ?Stage four ? | ? Stage four ?+ ---+ ---+ -------+| ?<15 (or dialysis) ? ?| ?Stage five ? | ? Stage five ?+ ---+ ---+ -------+ *Each stage assumes the associated GFR level has been in effect for at least three months. ?Stages 1 to 5, with or without kidney disease, indicate chronic kidney disease. Notes: Determination of stages one and two (with eGFR >59mL/min/1.73 m2) requires estimation of kidney damage for at least three months as defined by structural or functional abnormalities of the kidney, manifested by either:Pathological abnormalities or Markers of kidney damage (including abnormalities in the composition of the blood or urine or abnormalities in imaging tests). Lab Interpretation Abnormal (test code = 02442-5) [facility]2022-[facility] 12:51:06 Test Item Value Reference Range Interpretation Comments MAGNESIUM (test code = 4911172117) 1.9 mg/dL 1.7-2.4 Lab Interpretation (test code = Normal 73493-7) [facility]PHOSPHORUS2022-02-25 12:50:51 Test Item Value Reference Range Interpretation Comments PHOSPHORUS (test code = 3638507266) 4.6 mg/dL 2.5-5.0 Lab Interpretation (test code = Normal 27538-3) [facility] [id number] 12:50:50 Test Item Value Reference Range Interpretation Comments URIC ACID (test code = 5532410758) 4.6 mg/dL 3.6-8.0 Lab Interpretation (test code = Normal 21547-7) [facility] WITH [id number] 12:31:49 Test Item Value Reference Range Interpretation Comments WBC (test code = See_Comment [Automated 0290-2) message] The system which generated this result transmit sai reference range : 4.20 - 10.70 10*3/?L. The reference range was not used to interpret this result as normal/abnormal . RBC (test code = See_Comment L [Automated 599-8) message] The system which generated this result transmit sai reference range : 4.26 - 5.52 10*6/?L. The reference range was not used to interpret this result as normal/abnormal . HGB (test code = 11.9 g/dL 12.2-16.4 L 718-7) HCT (test code = 33.4 % 38.4-49.3 L 4544-3) MCV (test code = 83.7 fL 81.7-95.6 787-2) MCH (test code = 29.8 pg 26.1-32.7 785-6) MCHC (test code = 35.6 g/dL 31.2-35.0 H 786-4) RDW-SD (test code = 39.8 fL 38.5-51.6 16629-9) RDW-CV (test code = 13.1 % 12.1-15.4 788-0) PLT (test code = See_Comment [Automated 777-3) message] The system which generated this result transmit sai reference range : 150 - 328 10*3/ ?L. The reference range was not u sed to interpret th is result as normal/abnormal . MPV (test code = 10.6 fL 9.8-13.0 53952-0) NRBC/100 WBC (test See_Comment [Automat ed code = 7611142337) message] The system which generated this result transmit sai reference range : 0.0 - 10.0 /100 WBCs. The reference range was not used to interpret this result as normal/abnormal . NRBC x10^3 (test code <0.01 See_Comment [Auto mated = 6720812338) message] The system which generated this result transmit sai reference range : 10*3/?L. The reference range was not used to interpret this result as normal/abnormal . GRAN MAT (NEUT) % 69.9 % (test code = 770-8) IMM GRAN % (test code 0.40 % = 0311273246) LYMPH % (test code = 23.1 % 736-9) MONO % (test code = 3.9 % 5905-5) EOS % (test code = 1.7 % 713-8) BASO % (test code = 1.0 % 706-2) GRAN MAT x10^3(ANC) 4.86 10*3/uL 1.99-6.95 (test code = 6429563523) IMM GRAN x10^3 (test 0.03 10*3/uL 0.00-0.06 code = 1524960492) LYMPH x10^3 (test 1.61 10*3/uL 1.09-3.23 code = 731-0) MONO x10^3 (test code 0.27 10*3/uL 0.36-1.02 L = 742-7) EOS x10^3 (test code 0.12 10*3/uL 0.06-0.53 = 711-2) BASO x10^3 (test code 0.07 10*3/uL 0.01-0.09 = 704-7) REBECCA (test code = REBECCA) Post-transfusio n. Lab Interpretation Abnormal (test code = 14939-1) [facility] (in units), 2 Units 2021-07-19 08:09:14 Test Item Value Reference Range Interpretation Comments Cross Match Result Compatible (test code = 4409) ISBT Blood Type Code (test code = 381067) Unit Blood Type (test A Pos code = 4410) Unit Number (test [id number] code = 4411) Blood Expiration Date & Time (test code = 962462) Status Information Issued (test code = 4412) Product Red Blood Cells Identification (test code = 4413) Product Code (test [id number] Performed at [facility] code = 4414) Laboratory Services - [facility] [address] [place] [address]Toll Free: [phone] A No. [id number] [facility] CenterABORH Confirmation (Lab Only)2021-07-19 03:31:35 Test Item Value Reference Range Interpretation Comments ABO & RH (test code A Positive Performe d at [facility] = 20) Laboratory Serv [facility] - [facility] Blood Bank1 [address]Toll Free: [phone] A No. [id number] [facility] CenterType and Screen - ONCE [id number] 02:49:34 Test Item Value Reference Range Interpretation Comments ABO & RH (test code A Positive Performe d at [facility] = 20) Laboratory Serv [facility] Blood Bank[address] [place] [address]Ihyt Free: [phone] A No. [id number] IAT (test code = Negative Performed a t [facility] 1185) Laboratory [facility] Blood Bank[address] [place] [address]Peko Free: [phone] A No. [id number] General acute hospital GLUCOSE (AUTOMATED)2021-07-19 02:48:56 Test Item Value Reference Range Interpretation Comments POCT GLU (test code = 7877560356) 189 mg/dL 70-110 H Lab Interpretation (test code = Abnormal 26473-2) General acute hospital GLUCOSE (AUTOMATED)2021-07-18 23:04:37 Test Item Value Reference Range Interpretation Comments POCT GLU (test code = 9869722242) 215 mg/dL 70-110 H Lab Interpretation (test code = Abnormal 43547-4) [facility] Center[facility]2022-[facility]-24 21:33:04 Test Item Value Reference Range Interpretation Comments FOLATE SER (test code = 2024517054) 7.1 ng/mL 3.0-20.0 Lab Interpretation (test code = Normal 79467-1) General acute hospital GLUCOSE (AUTOMATED)2021-07-18 17:30:53 Test Item Value Reference Range Interpretation Comments POCT GLU (test code = 2456906684) 204 mg/dL 70-110 H Lab Interpretation (test code = Abnormal 74633-4) [facility] CenterVITAMIN B12, [id number] 17:29:10 Test Item Value Reference Range Interpretation Comments VIT B12 (test code = 373 pg/mL 240-930 3292964111) REBECCA (test code = REBECCA) Biotin has been reported to cause a positive bias, interpret results relative to patient's use of biotin. Lab Interpretation (test Normal code = 89905-4) General acute hospital GLUCOSE (AUTOMATED)2021-07-18 13:57:39 Test Item Value Reference Range Interpretation Comments POCT GLU (test code = 1821229903) 126 mg/dL 70-110 H Lab Interpretation (test code = Abnormal 93994-7) [facility] Center[facility] Metabolic Panel (NA, K, CL, CO2, GLUCOSE, BUN, CREATININE, CA)2021-07-18 12:38:34 Test Item Value Reference Range Interpretation Comments NA (test code = 136 mmol/L 135-145 5598524259) K (test code = 3.4 mmol/L 3.5-5.0 L 2823074927) CL (test code = 114 mmol/L 98-108 H 0392582054) CO2 TOTAL (test code = 26 mmol/L 23-31 0829796678) AGAP (test code = <1 2-16 L 6188729705) BUN (test code = 31 mg/dL 7-23 H 9855623861) GLUCOSE (test code = 111 mg/dL 70-110 H 2351567727) CREATININE (test code = 1.53 mg/dL 0.60-1.25 H 5938650420) CALCIUM (test code = 7.7 mg/dL 8.6-10.6 L 8182320690) eGFR (test code = mL/min/1.73m2 8053657975) REBECCA (test code = REBECCA) Association of Glomerular Filtration Rate (GFR) and Staging of Kidney Disease* + --+ --+ ------+| GFR (mL/min/1.73 m2) ?| With Kidney Damage ?| ?Without Kidney Damage+ --------+ --------+ +| ?>90 ?| ?Stage one ?| ? Normal ?+ ---+ ---+ -------+| ?60-89 ?| ?Stage two ?| ? Decreased GFR ? + --+ --+ ------+| ?30-59 ?| ?Stage three ?| ? Stage three ? + --+ --+ ------+| ?15-29 ?| ?Stage four ? | ? Stage four ?+ ---+ ---+ -------+| ?<15 (or dialysis) ? ?| ?Stage five ? | ? Stage five ?+ ---+ ---+ -------+ *Each stage assumes the associated GFR level has been in effect for at least three months. ?Stages 1 to 5, with or without kidney disease, indicate chronic kidney disease. Notes: Determination of stages one and two (with eGFR >59mL/min/1.73 m2) requires estimation of kidney damage for at least three months as defined by structural or functional abnormalities of the kidney, manifested by either:Pathological abnormalities or Markers of kidney damage (including abnormalities in the composition of the blood or urine or abnormalities in imaging tests). Lab Interpretation Abnormal (test code = 70598-7) [facility] CenterURIC TYKM4412-18-03 12:37:43 Test Item Value Reference Range Interpretation Comments URIC ACID (test code = 5436665429) 4.2 mg/dL 3.6-8.0 Lab Interpretation (test code = Normal 32107-4) [facility] CenterN-TERMINAL IWY-[id number] 11:55:00 Test Item Value Reference Range Interpretation Comments NT-proBNP (test code 2010 pg/mL See_Comment H [Autom ated = 1801712976) message] The system which generated this result transmitted reference range : <=125. The reference range was not used to interpret this result as normal/abnormal . REBECCA (test code = REBECCA) Biotin has been reported to cause a negative bias, interpret results relative to patient's use of biotin. Lab Interpretation Abnormal (test code = 71830-5) [facility] CenterMagnesium Jiwxm9081-03-76 11:49:37 Test Item Value Reference Range Interpretation Comments MAGNESIUM (test code = 5488694292) 2.0 mg/dL 1.7-2.4 Lab Interpretation (test code = Normal 53932-9) [facility] CenterPHOSPHORUS2022-02-24 11:49:16 Test Item Value Reference Range Interpretation Comments PHOSPHORUS (test code = 0892164467) 4.7 mg/dL 2.5-5.0 Lab Interpretation (test code = Normal 24571-7) [facility] CenterCBC with Juqwlztfypls6951-51-61 11:05:10 Test Item Value Reference Range Interpretation Comments WBC (test code = See_Comment [Automated 1690-2) message] The sy stem which generated this result transmitted reference range : 4.20 - 10.70 10*3/?L. The reference range was not used to interpret this result as normal/abnormal . RBC (test code = See_Comment L [Automated 539-8) message] The sy stem which generated this result transmitted reference range : 4.26 - 5.52 10*6/?L. The reference range was not used to interpret this result as normal/abnormal . HGB (test code = 5.8 g/dL 12.2-16.4 L 718-7) HCT (test code = 16.5 % 38.4-49.3 L 4544-3) MCV (test code = 86.8 fL 81.7-95.6 787-2) MCH (test code = 30.5 pg 26.1-32.7 785-6) MCHC (test code = 35.2 g/dL 31.2-35.0 H 786-4) RDW-SD (test code = 41.6 fL 38.5-51.6 53858-5) RDW-CV (test code = 13.2 % 12.1-15.4 788-0) PLT (test code = See_Comment [Automated 777-3) message] The sy stem which generated this result transmitted reference range : 150 - 328 10*3/ ?L. The reference r pamela was not used to interpret this result as normal/abnormal . MPV (test code = 11.1 fL 9.8-13.0 43547-2) NRBC/100 WBC (test See_Comment [Automat ed code = 8020422837) message] The system which generated this result transmitted reference range : 0.0 - 10.0 /100 WBCs. The refer ence range was not u sed to interpret th is result as normal/abnormal . NRBC x10^3 (test code <0.01 See_Comment [Auto mated = 8612216212) message] The s ystem which generated this result transmitted reference range : 10*3/?L. The reference range was not used to interpret this result as normal/abnormal . GRAN MAT (NEUT) % 55.1 % (test code = 770-8) IMM GRAN % (test code 0.60 % = 3579387131) LYMPH % (test code = 33.9 % 736-9) MONO % (test code = 6.7 % 5905-5) EOS % (test code = 2.7 % 713-8) BASO % (test code = 1.0 % 706-2) GRAN MAT x10^3(ANC) 2.88 10*3/uL 1.99-6.95 (test code = 6961457753) IMM GRAN x10^3 (test 0.03 10*3/uL 0.00-0.06 code = 1364772192) LYMPH x10^3 (test code 1.77 10*3/uL 1.09-3.23 = 731-0) MONO x10^3 (test code 0.35 10*3/uL 0.36-1.02 L = 742-7) EOS x10^3 (test code = 0.14 10*3/uL 0.06-0.53 711-2) BASO x10^3 (test code 0.05 10*3/uL 0.01-0.09 = 704-7) Lab Interpretation Abnormal (test code = 00994-3) [facility] CenterPO[facility])2021-07-18 04:20:55 Test Item Value Reference Range Interpretation Comments POCT GLU (test code = 4908355809) 149 mg/dL 70-110 H Lab Interpretation (test code = Abnormal 64566-2) [facility] CenterIRON KHMGE7640-11-07 02:41:44 Test Item Value Reference Range Interpretation Comments IRON (test code = 2640284154) 67 ug/dL 50-160 TIBC (test code = 2011934693) 182 ug/dL 250-410 L % FE SAT (test code = 3556834962) 37 % 20-50 Lab Interpretation (test code = Abnormal 21681-6) [facility] CenterPHOSPHORUS2022-02-24 02:32:18 Test Item Value Reference Range Interpretation Comments PHOSPHORUS (test code = 9592748632) 4.3 mg/dL 2.5-5.0 Lab Interpretation (test code = Normal 60221-7) [facility] CenterALBUMIN2022-02-24 01:59:34 Test Item Value Reference Range Interpretation Comments ALBUMIN (test code = 9402454639) 2.0 g/dL 3.5-5.0 L Lab Interpretation (test code = Abnormal 26700-0) [facility] CenterGLYCOSYLATED HEMOGLOBIN (A1C)2021-07-18 01:59:29 Test Item Value Reference Range Interpretation Comments HGB A1C (test code = 5.3 % 4.0-5.7 4548-4) REBECCA (test code = REBECCA) Reference RangesNormal: <5.7%Prediabetes: 5.7 - 6.4%Diabetes: > 6.5% Lab Interpretation (test Normal code = 56445-4) [facility] CenterTransthoracic echo (TTE)2021-07-17 22:49:26 Test Item Value Reference Range Interpretation Comments LVOT diameter (test code 2.00 cm = 1659800543) LA size (test code = 3.9 cm 2129859078) Ao root annulus (test 3.5 cm code = 1731129072) Ao root diam (test code = 3.50 cm 4003570569) Aortic root (test code = 3.5 cm 8802933472) LVIDD (test code = 5.30 cm 9594041847) IVS (test code = 1.40 cm 1816313034) Interventricular Septum 1.40 cm Diastolic Thickness by 2D (test code = 2894536) LVPWD (test code = 1.39 cm 1750054767) PW (test code = 1.39 cm 0.6-1.7 8034804229) EF(Teich) (test code = 55.30 % 3411495552) LVIDS (test code = 3.80 cm 3820561441) FS (test code = 29 % 5147849722) EF - 2D (test code = 55.30 % 05745888) TR Peak Ester (test code = 179.1 cm/s 6514230517) Triscuspid Valve mmHg Regurgitation Peak Gradient (test code = 3658123189) Pulmonic Regurgitant End 140.3 cm/s Max Velocity (test code = 1081204103) LAV(MOD-sp4) (test code = 71.40 mL 8782665758) MV stenosis pressure 1/2 35.4 ms time (test code = 5712064868) MV Peak E Ester (test code 114.5 cm/s = 1890463504) E wave decelartion time 0.12 s (test code = 1326664108) MV Peak A Ester (test code 96.7 cm/s = 4188519397) E/A ratio (test code = ratio 4837947075) MR max PG (test code = 103.90 mm[Hg] 8637591643) MR max ester (test code = 509.20 cm/s 6120911143) Mr max ester (test code = 509.2 m/s 2182618249) MV Prop V (test code = 25.40 cm/s 4184410334) MV E/e' septal (test code 10.0 cm/s = 4626984880) Tapse (test code = 2.30 cm 9464159362) LVOT stroke volume (test 71.90 cm3 code = 8115046343) LVOT peak ester (test code 111.4 cm/s = 7057601069) LVOT mn grad (test code = mmHg 0691386725) AV LVOT peak gradient mmHg (test code = 5683561541) LVOT peak VTI (test code 22.9 cm = 2852780888) LV V1 mean (test code = 80.40 cm/s 5815730554) Aortic valve mean 103.8 cm/s velocity (test code = 1753161620) Ao peak ester (test code = 134.4 cm/s 6068471578) Ao VTI (test code = 30.4 cm 1277900605) AV area by cont VTI (test 2.4 cm2 code = 9322816416) AV area peak ester (test 2.6 cm2 code = 6956661811) Ao max PG (test code = 7.20 mm[Hg] 8668578864) AV peak gradient (test mmHg code = 8045842210) AV valve area (test code 2.36 cm2 = 7250726880) AV mean gradient (test mmHg code = 4233522681) LA Volume Index (BP) 39.1 mL/m2 (test code = 9155337481) LA volume (BP) (test code 80.8 mL = 6708518297) LAV(MOD-sp2) (test code = 81.50 mL 9351419821) Radiology Study observation (narrative) (test code = 29011-4) REBECCA (test code = REBECCA) ?Left?Ventricle: Left ventricle is normal in size and function. Mildly increased wall thickness. Normal systolic function with a visually estimated EF of 55 - 60%. ?Right?Ventricle: Right ventricle is normal in size and function. Normal wall thickness. ?Tricuspid?Valve: Insufficient regurgant jet to estimate RVSP. ?Pericardium: Small pericardial effusion present. No indication of cardiac tamponade. VitalsHeight Weight BSA (Calculated - sq m) BP Pulse 5' 8" (1.727 m) 205 lb (93 kg) 2.11 sq meters 170/102 78 General acute hospital GLUCOSE (AUTOMATED)2021-07-17 22:01:58 Test Item Value Reference Range Interpretation Comments POCT GLU (test code = 2231710584) 138 mg/dL 70-110 H Lab Interpretation (test code = Abnormal 97195-8) General acute hospital GLUCOSE (AUTOMATED)2021-07-17 20:26:40 Test Item Value Reference Range Interpretation Comments POCT GLU (test code = 2711317956) 255 mg/dL 70-110 H Lab Interpretation (test code = Abnormal 68041-4) General acute hospital GLUCOSE (AUTOMATED)2021-07-17 20:00:53 Test Item Value Reference Range Interpretation Comments POCT GLU (test code = 4214413151) 289 mg/dL 70-110 H Lab Interpretation (test code = Abnormal 82990-0) [facility]. METABOLIC PANEL (28470)2021-07-17 19:25:33 Test Item Value Reference Range Interpretation Comments NA (test code = 132 mmol/L 135-145 L 4262567716) K (test code = 3.5 mmol/L 3.5-5.0 4891411759) CL (test code = 108 mmol/L 98-108 7010757161) CO2 TOTAL (test code = 23 mmol/L 23-31 9218996408) AGAP (test code = 2-16 L 7539956436) BUN (test code = 29 mg/dL 7-23 H 2778181915) GLUCOSE (test code = 300 mg/dL 70-110 H 9438632225) CREATININE (test code = 1.45 mg/dL 0.60-1.25 H 7482556967) TOTAL BILI (test code = 0.3 mg/dL 0.1-1.7 3527119313) CALCIUM (test code = 7.1 mg/dL 8.6-10.6 L 7174120745) T PROTEIN (test code = 4.1 g/dL 6.3-8.2 L 7340846684) ALBUMIN (test code = 2.0 g/dL 3.5-5.0 L 2429346402) ALK PHOS (test code = 87 U/L 34-122 2077839068) ALTv (test code = 16 U/L 5-50 1742-6) AST(SGOT) (test code = 27 U/L 13-40 8753863859) eGFR (test code = mL/min/1.73m2 9745573875) REBECCA (test code = REBECCA) Association of Glomerular Filtration Rate (GFR) and Staging of Kidney Disease* + --+ --+ ------+| GFR (mL/min/1.73 m2) ?| With Kidney Damage ?| ?Without Kidney Damage+ --------+ --------+ +| ?>90 ?| ?Stage one ?| ? Normal ?+ ---+ ---+ -------+| ?60-89 ?| ?Stage two ?| ? Decreased GFR ? + --+ --+ ------+| ?30-59 ?| ?Stage three ?| ? Stage three ? + --+ --+ ------+| ?15-29 ?| ?Stage four ? | ? Stage four ?+ ---+ ---+ -------+| ?<15 (or dialysis) ? ?| ?Stage five ? | ? Stage five ?+ ---+ ---+ -------+ *Each stage assumes the associated GFR level has been in effect for at least three months. ?Stages 1 to 5, with or without kidney disease, indicate chronic kidney disease. Notes: Determination of stages one and two (with eGFR >59mL/min/1.73 m2) requires estimation of kidney damage for at least three months as defined by structural or functional abnormalities of the kidney, manifested by either:Pathological abnormalities or Markers of kidney damage (including abnormalities in the composition of the blood or urine or abnormalities in imaging tests). Lab Interpretation Abnormal (test code = 39307-4) [facility] CenterRAJAT [id number] 19:13:33 Test Item Value Reference Interpretation Comments Range TROPONIN I (test 0.016 ng/mL See_Comment [Automated code = 5291372343) message] The system which generated this result transmitted reference range : <=0.034. The reference range was not used to interpret this result as normal/abnormal . REBECCA (test code = Reference (Normal) REBECCA) Range (defined by the 99th percentile reference limit): <= 0.034 ng/mL Note: Cardiac troponin begins to rise 3-4 hours after the onset of ischemia. Repeat in 4-6 hours if the sample was drawn within 3-4 hours of the onset of the symptom and found normal. Diagnosis of myocardial injury is made with acute changes in cTn concentrations with at least one serial sample above the 99th percentile upper reference limit (URL), taken together with the patient's clinical presentation. Biotin has been reported to cause a negative bias, interpret results relative to patient's use of biotin. Lab Interpretation Normal (test code = 14042-7) [facility] CenterN-TERMINAL [id number] 19:10:11 Test Item Value Reference Range Interpretation Comments NT-proBNP (test code 2190 pg/mL See_Comment H [Autom ated = 2693248232) message] The system which generated this result transmitted reference range : <=125. The reference range was not used to interpret this result as normal/abnormal . REBECCA (test code = REBECCA) Biotin has been reported to cause a negative bias, interpret results relative to patient's use of biotin. Lab Interpretation Abnormal (test code = 36793-8) [facility] WITH [id number] 18:46:26 Test Item Value Reference Range Interpretation Comments WBC (test code = See_Comment [Automated 9990-2) message] The sy stem which generated this result transmitted reference range : 4.20 - 10.70 10*3/?L. The reference range was not used to interpret this result as normal/abnormal . RBC (test code = See_Comment L [Automated 189-8) message] The sy stem which generated this result transmitted reference range : 4.26 - 5.52 10*6/?L. The reference range was not used to interpret this result as normal/abnormal . HGB (test code = 8.7 g/dL 12.2-16.4 L 718-7) HCT (test code = 25.0 % 38.4-49.3 L 4544-3) MCV (test code = 87.4 fL 81.7-95.6 787-2) MCH (test code = 30.4 pg 26.1-32.7 785-6) MCHC (test code = 34.8 g/dL 31.2-35.0 786-4) RDW-SD (test code = 41.4 fL 38.5-51.6 95171-5) RDW-CV (test code = 13.0 % 12.1-15.4 788-0) PLT (test code = See_Comment [Automated 777-3) message] The sy stem which generated this result transmitted reference range : 150 - 328 10*3/ ?L. The reference r pamela was not used to interpret this result as normal/abnormal . MPV (test code = 11.3 fL 9.8-13.0 63460-3) NRBC/100 WBC (test See_Comment [Automat ed code = 1999464095) message] The system which generated this result transmitted reference range : 0.0 - 10.0 /100 WBCs. The refer ence range was not u sed to interpret th is result as normal/abnormal . NRBC x10^3 (test code <0.01 See_Comment [Auto mated = 3996846867) message] The s ystem which generated this result transmitted reference range : 10*3/?L. The reference range was not used to interpret this result as normal/abnormal . GRAN MAT (NEUT) % 58.9 % (test code = 770-8) IMM GRAN % (test code 0.50 % = 4219920885) LYMPH % (test code = 30.1 % 736-9) MONO % (test code = 6.7 % 5905-5) EOS % (test code = 2.7 % 713-8) BASO % (test code = 1.1 % 706-2) GRAN MAT x10^3(ANC) 3.33 10*3/uL 1.99-6.95 (test code = 7768624271) IMM GRAN x10^3 (test 0.03 10*3/uL 0.00-0.06 code = 1502916856) LYMPH x10^3 (test code 1.70 10*3/uL 1.09-3.23 = 731-0) MONO x10^3 (test code 0.38 10*3/uL 0.36-1.02 = 742-7) EOS x10^3 (test code = 0.15 10*3/uL 0.06-0.53 711-2) BASO x10^3 (test code 0.06 10*3/uL 0.01-0.09 = 704-7) Lab Interpretation Abnormal (test code = 49858-6) [facility] 19:04:00 Test Item Value Reference Range Interpretation Comments MCHC (test code = MCHC) 35.5 32.0-36.0 [facility]anoTjdegjrHIFQTFRNAM0401-32-87 19:04:00 Test Item Value Reference Range Interpretation Comments RDW (test code = RDW) 14.2 11.5-14.5 [facility]anoKgxmelfFETFSGITGY0579-98-32 19:04:00 Test Item Value Reference Range Interpretation Comments Platelet (test code = Platelet) 164 133-450 [facility] PlanoJcvwqqxMSGJITIUQS0069-07-07 19:04:00 Test Item Value Reference Range Interpretation Comments MPV (test code = MPV) 8.5 7.4-10.4 [facility] PlanoZlhhhgsCXVQMMAILH2579-58-34 19:04:00 Test Item Value Reference Range Interpretation Comments Segs (test code = Segs) 64.4 45.0-75.0 [facility] PlanoQsmvzoeOPLWUVKBEM1813-39-96 19:04:00 Test Item Value Reference Range Interpretation Comments Lymphocytes (test code = Lymphocytes) 26.0 20.0-40.0 [place] 929092-02-22 19:04:00 Test Item Value Reference Range Interpretation Comments Monocytes (test code = Monocytes) 6.2 2.0-12.0 [facility] PlanoFczbqsjPCFCWBNFYL9267-58-40 19:04:00 Test Item Value Reference Range Interpretation Comments Eosinophils (test code = 2.3 See_Comment [A utomated message] The Eosinophils) system which ge nerated this result tra nsmitted reference range : <=4.0. The reference r pamela was not used to int erpret this result as normal/abnormal . [facility] PlanoYnmonwcFDVFELDPVD1560-00-98 19:04:00 Test Item Value Reference Range Interpretation Comments Basophils (test code = 1.1 See_Comment [Aut omated message] The Basophils) system which ge nerated this result tra nsmitted reference range : <=1.0. The reference r pamela was not used to int erpret this result as normal/abnormal . [place] 929092-02-22 19:04:00 Test Item Value Reference Range Interpretation Comments Neutrophils # (test code = Neutrophils 3.8 1.5-8.1 #) [facility]lioIOQFFZNFPT4515-[facility] 19:04:00 Test Item Value Reference Range Interpretation Comments Lymphocytes # (test code = Lymphocytes 1.5 1.0-5.5 #) [facility] PlanoDfinyoyNVIUFTRTGO7320-81-34 19:04:00 Test Item Value Reference Range Interpretation Comments Monocytes # (test code 0.4 See_Comment [Aut omated message] The = Monocytes #) system which generated this result tra nsmitted reference range : <=0.8. The reference r pamela was not used to int erpret this result as normal/abnormal . [facility] PlanoTemravqCBAWTMYAGG5035-36-98 19:04:00 Test Item Value Reference Range Interpretation Comments Eosinophils # (test code 0.1 See_Comment [A utomated message] The = Eosinophils #) system whic h generated this result tra nsmitted reference range : <=0.5. The reference r pamela was not used to int erpret this result as normal/abnormal . [facility] PlanoHtvtupyNDAZTHWTTW2887-33-19 19:04:00 Test Item Value Reference Range Interpretation Comments Basophils # (test code 0.1 See_Comment [Aut omated message] The = Basophils #) system which generated this result tra nsmitted reference range : <=0.2. The reference r pamela was not used to int erpret this result as normal/abnormal . [facility] BudaCoachLogixAC BETSKGB2308-77-60 19:04:00 Test Item Value Reference Range Interpretation Comments HS Troponin I (test code = HS Troponin 13 I) [facility] BudaCoachLogixAC BEZSMGX3449-58-24 19:04:00 Test Item Value Reference Range Interpretation Comments BNP (test code = BNP) 126 [facility] BudaCHEM SADNK7240-58-40 19:04:00 Test Item Value Reference Range Interpretation Comments Magnesium Lvl (test code = Magnesium 2.2 1.8-2.4 Lvl) [facility]HgevzqlTTNPOTVXJJXS9568-38-89 19:04:00 Test Item Value Reference Range Interpretation Comments Sodium Lvl (test code = Sodium Lvl) 141 135-145 [facility]KnyiwcbAHBRKRQTKREA4940-47-71 19:04:00 Test Item Value Reference Range Interpretation Comments Potassium Lvl (test code = Potassium 3.4 3.5-5.1 Lvl) [facility] HospitalTvhaexlPEMZGTTLQWWH4034-85-29 19:04:00 Test Item Value Reference Range Interpretation Comments Chloride Lvl (test code = Chloride Lvl) 112 95-109 [facility] HospitalRmbctfaSAKQUJZQNKNX2372-74-79 19:04:00 Test Item Value Reference Range Interpretation Comments Glucose Lvl (test code = Glucose Lvl) 285 70-99 [facility] HospitalChfoznkDXAPPBXZWCEC8923-44-60 19:04:00 Test Item Value Reference Range Interpretation Comments BUN (test code = BUN) 30 7-22 [facility] HospitalCwcdnhbCPWOYWSLTDLR8228-40-16 19:04:00 Test Item Value Reference Range Interpretation Comments Creatinine Lvl (test code = Creatinine 1.49 0.50-1.40 Lvl) [facility] HospitalIlvvkpjKFVVILOFGXWI1439-47-54 19:04:00 Test Item Value Reference Range Interpretation Comments CO2 (test code = CO2) 25 24-32 [facility] HospitalJhylnvfWHVHOLYHCQIE6876-83-68 19:04:00 Test Item Value Reference Range Interpretation Comments Calcium Lvl (test code = Calcium Lvl) 7.9 8.5-10.5 [facility] HospitalWqlvhoaOWJSDKPYLRXN3795-15-40 19:04:00 Test Item Value Reference Range Interpretation Comments Total Protein (test code = Total 4.9 6.4-8.4 Protein) [facility] HospitalRynmwznNQFOFLAXALVJ9708-41-22 19:04:00 Test Item Value Reference Range Interpretation Comments Albumin Lvl (test code = Albumin Lvl) 1.4 3.5-5.0 [facility] HospitalJntctzgXSNRBRQXJNLG6585-10-76 19:04:00 Test Item Value Reference Range Interpretation Comments ALT (test code = ALT) 14 See_Comment [Auto mated message] The system which ge nerated this result transmit sai reference range : <=65. The reference range was not used to interpr et this result as veronica l/abnormal. [facility] HospitalSkqsaujDPQUUFXPUPAM6776-70-11 19:04:00 Test Item Value Reference Range Interpretation Comments AST (test code = AST) 22 See_Comment [Auto mated message] The system which ge nerated this result transmit sai reference range : <=37. The reference range was not used to interpr et this result as veronica l/abnormal. [facility] HospitalEkkauvuIYMQZBQYNSDL1511-96-67 19:04:00 Test Item Value Reference Range Interpretation Comments Alk Phos (test code = Alk Phos) 93 39-[address] [facility] HospitalCovzxrtULOFLNIBGZPM8186-74-66 19:04:00 Test Item Value Reference Range Interpretation Comments Bili Total (test code = Bili Total) 0.2 0.2-1.[address] [facility] HospitalKeojsucAXMTFTADDVKM9928-68-62 19:04:00 Test Item Value Reference Range Interpretation Comments AGAP (test code = AGAP) 7.4 10.0-20.0 [facility] HospitalVhkuqnwLXVADLIIUKIJ7349-87-21 19:04:00 Test Item Value Reference Range Interpretation Comments B/C Ratio (test code = B/C Ratio) 20 1 6-25 [facility] HospitalRmsgtumPFIENNKNVLAJ2681-40-65 19:04:00 Test Item Value Reference Range Interpretation Comments Globulin (test code = Globulin) 3.5 2.7-4.2 [facility] HospitalXxvywujQNKMHGZMEPZO1520-02-15 19:04:00 Test Item Value Reference Range Interpretation Comments A/G Ratio (test code = A/G Ratio) 0.4 1 0.7-1.6 [facility] HospitalZbdfbvsSFOIPDJYXCJR0870-51-36 19:04:00 Test Item Value Reference Range Interpretation Comments eGFR (test code = eGFR) 62 [facility]udaQtcmzvzLCYWCWUMWK0988-19-49 19:04:00 Test Item Value Reference Range Interpretation Comments WBC (test code = WBC) 5.9 3.7-10.[address] [facility] HospitalannCARDIAC PFOZQJJ6872-04-17 19:04:00 Test Item Value Reference Range Interpretation Comments HS Troponin I (test code = HS Troponin [address] I) [facility] HospitalannCARDIAC SJAKPRD5122-14-07 19:04:00 Test Item Value Reference Range Interpretation Comments BNP (test code = BNP) [address] [facility] HospitalClean Filtration TechnologyCHEM SMTXZ0090-92-64 19:04:00 Test Item Value Reference Range Interpretation Comments Magnesium Lvl (test code = Magnesium 2.2 1.8-2.4 Lvl) [facility] HospitalOdxsbbeMPSBKXYUIWGX2324-47-32 19:04:00 Test Item Value Reference Range Interpretation Comments Sodium Lvl (test code = Sodium Lvl) 141 135-145 [facility] HospitalCukhpyxEUGBRRAIVKLF3647-38-06 19:04:00 Test Item Value Reference Range Interpretation Comments Potassium Lvl (test code = Potassium 3.4 3.5-5.1 Lvl) [facility] HospitalEoiainrSQLVQVWCHINX3280-06-96 19:04:00 Test Item Value Reference Range Interpretation Comments Chloride Lvl (test code = Chloride Lvl) 112 95-109 [place] 575712-02-22 19:04:00 Test Item Value Reference Range Interpretation Comments Glucose Lvl (test code = Glucose Lvl) 285 70-99 [facility] BudaDgwjtyzRUNJKKRWEM3822-09-35 19:04:00 Test Item Value Reference Range Interpretation Comments RBC (test code = RBC) 2.88 4.70-6.10 [facility] HospitalTqhfidyMMPYRWIOABUP2170-04-13 19:04:00 Test Item Value Reference Range Interpretation Comments BUN (test code = BUN) 30 7-22 [place] 575712-02-22 19:04:00 Test Item Value Reference Range Interpretation Comments Creatinine Lvl (test code = Creatinine 1.49 0.50-1.40 Lvl) [facility] HospitalYriaclmDAIJRYDRVMTT3122-17-35 19:04:00 Test Item Value Reference Range Interpretation Comments CO2 (test code = CO2) 25 24-32 [facility] HospitalVtzdlxcTGOYZNASFTGX1093-80-66 19:04:00 Test Item Value Reference Range Interpretation Comments Calcium Lvl (test code = Calcium Lvl) 7.9 8.5-10.5 [facility] HospitalLpezqwzIVPWFSSBCAGE2490-03-84 19:04:00 Test Item Value Reference Range Interpretation Comments Total Protein (test code = Total 4.9 6.4-8.4 Protein) [facility] HospitalSbsyhjkGBAUGIERFDLS8170-90-81 19:04:00 Test Item Value Reference Range Interpretation Comments Albumin Lvl (test code = Albumin Lvl) 1.4 3.5-5.0 [facility] HospitalGjtncjiYIQUIJJSEAZK2410-33-01 19:04:00 Test Item Value Reference Range Interpretation Comments ALT (test code = ALT) 14 See_Comment [Auto mated message] The system which ge nerated this result transmit sai reference range : <=65. The reference range was not used to interpr et this result as veronica l/abnormal. [place] 575712-02-22 19:04:00 Test Item Value Reference Range Interpretation Comments AST (test code = AST) 22 See_Comment [Auto mated message] The system which ge nerated this result transmit sai reference range : <=37. The reference range was not used to interpr et this result as veronica l/abnormal. [facility] HospitalUbtdizdVUBHJOSSRHTY4676-01-88 19:04:00 Test Item Value Reference Range Interpretation Comments Alk Phos (test code = Alk Phos) 93 39-136 [place] 575712-02-22 19:04:00 Test Item Value Reference Range Interpretation Comments Bili Total (test code = Bili Total) 0.2 0.2-1.3 [facility]anoIlqgctbQQHZVZGMKU4565-14-57 19:04:00 Test Item Value Reference Range Interpretation Comments Hgb (test code = Hgb) 9.0 14.0-18.0 [place] 575712-02-22 19:04:00 Test Item Value Reference Range Interpretation Comments AGAP (test code = AGAP) 7.4 10.0-20.0 [place] 575712-02-22 19:04:00 Test Item Value Reference Range Interpretation Comments B/C Ratio (test code = B/C Ratio) 20 1 6-25 [place] 575712-02-22 19:04:00 Test Item Value Reference Range Interpretation Comments Globulin (test code = Globulin) 3.5 2.7-4.2 [place] 575712-02-22 19:04:00 Test Item Value Reference Range Interpretation Comments A/G Ratio (test code = A/G Ratio) 0.4 1 0.7-1.6 [place] 575712-02-22 19:04:00 Test Item Value Reference Range Interpretation Comments eGFR (test code = eGFR) 62 [facility] PlanoLgdfgktJKUQEAAVWE3488-74-49 19:04:00 Test Item Value Reference Range Interpretation Comments WBC (test code = WBC) 5.9 3.7-10.4 [place] 929092-02-22 19:04:00 Test Item Value Reference Range Interpretation Comments RBC (test code = RBC) 2.88 4.70-6.10 [place] 929092-02-22 19:04:00 Test Item Value Reference Range Interpretation Comments Hgb (test code = Hgb) 9.0 14.0-18.0 [place] 929092-02-22 19:04:00 Test Item Value Reference Range Interpretation Comments Hct (test code = Hct) 25.3 42.0-54.0 [facility] PlanoZvugzufNRXNZLNKNM8531-30-14 19:04:00 Test Item Value Reference Range Interpretation Comments MCV (test code = MCV) 87.9 80.0-94.0 [facility] PlanoElkrjloRZNWIJVVFH1563-72-09 19:04:00 Test Item Value Reference Range Interpretation Comments Hct (test code = Hct) 25.3 42.0-54.0 [facility] PlanoYblsrkkYZLOSFKNNI2219-25-04 19:04:00 Test Item Value Reference Range Interpretation Comments MCH (test code = MCH) 31.2 pg 27.0-31.0 [facility] PlanoWowuivjQZPZPTPZNJ9354-61-27 19:04:00 Test Item Value Reference Range Interpretation Comments MCHC (test code = MCHC) 35.5 32.0-36.0 [facility] PlanoYxosrioOWKQMUKXGN4985-39-27 19:04:00 Test Item Value Reference Range Interpretation Comments RDW (test code = RDW) 14.2 11.5-14.5 [facility] PlanoNxgpoycVSSQWUVSFM0904-57-93 19:04:00 Test Item Value Reference Range Interpretation Comments Platelet (test code = Platelet) 164 133-450 [facility] PlanoSvjwidmVVQYOQPQWB1195-06-15 19:04:00 Test Item Value Reference Range Interpretation Comments MPV (test code = MPV) 8.5 7.4-10.4 [facility] PlanoMrmhbkuBAXJGNLWPG3166-93-86 19:04:00 Test Item Value Reference Range Interpretation Comments Segs (test code = Segs) 64.4 45.0-75.0 [facility] PlanoBdlgmlvFKIZZVKKIX9893-55-09 19:04:00 Test Item Value Reference Range Interpretation Comments Lymphocytes (test code = Lymphocytes) 26.0 20.0-40.0 [facility] PlanoCszxvefTXGHRLIOZB3157-71-58 19:04:00 Test Item Value Reference Range Interpretation Comments Monocytes (test code = Monocytes) 6.2 2.0-12.0 [place] 929092-02-22 19:04:00 Test Item Value Reference Range Interpretation Comments Eosinophils (test code = 2.3 See_Comment [A utomated message] The Eosinophils) system which ge nerated this result tra nsmitted reference range : <=4.0. The reference r pamela was not used to int erpret this result as normal/abnormal . [place] [address]-02-22 19:04:00 Test Item Value Reference Range Interpretation Comments Basophils (test code = 1.1 See_Comment [Aut omated message] The Basophils) system which ge nerated this result tra nsmitted reference range : <=1.0. The reference r pamela was not used to int erpret this result as normal/abnormal . [facility] PlanoBvkgqbcUNFAELQJYV2196-37-60 19:04:00 Test Item Value Reference Range Interpretation Comments MCV (test code = MCV) 87.9 80.0-94.0 [facility] PlanoDcspmmbMRSOPDEYPC4945-66-17 19:04:00 Test Item Value Reference Range Interpretation Comments Neutrophils # (test code = Neutrophils 3.8 1.5-8.1 #) [facility] PlanoAxoqxwvRJQHACPXAZ7531-75-01 19:04:00 Test Item Value Reference Range Interpretation Comments Lymphocytes # (test code = Lymphocytes 1.5 1.0-5.5 #) [facility] PlanoLahplciGMQGFDOUBM2150-58-85 19:04:00 Test Item Value Reference Range Interpretation Comments Monocytes # (test code 0.4 See_Comment [Aut omated message] The = Monocytes #) system which generated this result tra nsmitted reference range : <=0.8. The reference r pamela was not used to int erpret this result as normal/abnormal . [facility] PlanoXxxpjicIASOLIQJTZ1971-16-29 19:04:00 Test Item Value Reference Range Interpretation Comments Eosinophils # (test code 0.1 See_Comment [A utomated message] The = Eosinophils #) system whic h generated this result tra nsmitted reference range : <=0.5. The reference r pamela was not used to int erpret this result as normal/abnormal . [facility] PlanoWfjrgqiMJFCIBBLQT5678-83-04 19:04:00 Test Item Value Reference Range Interpretation Comments Basophils # (test code 0.1 See_Comment [Aut omated message] The = Basophils #) system which generated this result tra nsmitted reference range : <=0.2. The reference r pamela was not used to int erpret this result as normal/abnormal . [facility] PlanoZoxcdilHDXEXNPUVQ9893-79-36 19:04:00 Test Item Value Reference Range Interpretation Comments MCH (test code = MCH) 31.2 pg 27.0-31.0 [facility] hltlbzq3282-15-25 03:40:33 Test Item Value Reference Range Interpretation Comments Case number (test code = [id number]) Surgical pathology See link below for report (test code = PDF Lab Report [id number]) Result status (test code This is Final Report = [id number]) [facility] [id number] [facility] yyawbeq7603-10-43 15:58:55 Test Item Value Reference Range Interpretation Comments POC glucose (test code 130 mg/dL 65-99 H Opera tor Name: [place] = [id number]) SumathiDevice I D: [id number] able: No Action Neede d Lab Interpretation Abnormal (test code = 31568-6) [facility] IBMIH5084-58-22 04:55:00 Test Item Value Reference Range Interpretation Comments ALT (test code = ALT) 30 See_Comment [Auto mated message] The system which ge nerated this result transmit sai reference range : <=65. The reference range was not used to interpr et this result as veronica l/abnormal. [facility]2021-11-01 04:55:00 Test Item Value Reference Range Interpretation Comments AST (test code = AST) 31 See_Comment [Auto mated message] The system which ge nerated this result transmit sai reference range : <=37. The reference range was not used to interpr et this result as veronica l/abnormal. [facility]2021-11-01 04:55:00 Test Item Value Reference Range Interpretation Comments Alk Phos (test code = Alk Phos) 83 39-136 [facility]2021-11-01 04:55:00 Test Item Value Reference Range Interpretation Comments Bili Total (test code = Bili Total) 0.2 0.2-1.3 [facility]2021-11-01 04:55:00 Test Item Value Reference Range Interpretation Comments Globulin (test code = Globulin) 3.1 2.7-4.2 [facility]2021-11-01 04:55:00 Test Item Value Reference Range Interpretation Comments A/G Ratio (test code = A/G Ratio) 0.5 1 0.7-1.6 [facility] PlanoPhbvmjwTEGKCWZZQZ5325-44-73 04:55:00 Test Item Value Reference Range Interpretation Comments WBC (test code = WBC) 6.8 3.7-10.4 [facility] PlanoIglqauvBWQSVDKBFQ1054-00-95 04:55:00 Test Item Value Reference Range Interpretation Comments RBC (test code = RBC) 3.33 4.70-6.10 [facility] PlanoOonxmehSTEWHMOCFK7631-28-33 04:55:00 Test Item Value Reference Range Interpretation Comments Hgb (test code = Hgb) 10.9 14.0-18.0 [facility] PlanoMkcwiamMIFHUQGURG5799-30-05 04:55:00 Test Item Value Reference Range Interpretation Comments Hct (test code = Hct) 29.6 42.0-54.0 [facility] PlanoMlqbvmlYLELDZPWUS0263-97-79 04:55:00 Test Item Value Reference Range Interpretation Comments MCV (test code = MCV) 88.7 80.0-94.0 [facility] PlanoLxbccjxUBWQQXZKBJ0737-61-30 04:55:00 Test Item Value Reference Range Interpretation Comments MCH (test code = MCH) 32.7 pg 27.0-31.0 [facility] PlanoIdnugquQDLXVNCDPF8214-12-19 04:55:00 Test Item Value Reference Range Interpretation Comments MCHC (test code = MCHC) 36.9 32.0-36.0 [facility] PlanoLlelarcGVFWZBNROG0029-71-96 04:55:00 Test Item Value Reference Range Interpretation Comments RDW (test code = RDW) 13.7 11.5-14.5 [facility] PlanoSozfxwmNJOCLVECDK5048-02-79 04:55:00 Test Item Value Reference Range Interpretation Comments Platelet (test code = Platelet) 184 133-450 [facility] PlanoZqiuhryICZUGQLAQP6238-89-71 04:55:00 Test Item Value Reference Range Interpretation Comments MPV (test code = MPV) 8.1 7.4-10.4 [place] 929091-11-01 04:55:00 Test Item Value Reference Range Interpretation Comments Segs (test code = Segs) 66.5 45.0-75.0 [place] 929091-11-01 04:55:00 Test Item Value Reference Range Interpretation Comments Lymphocytes (test code = Lymphocytes) 25.7 20.0-40.0 [facility] PlanoUrubihyOLHDLXWWPF9767-51-73 04:55:00 Test Item Value Reference Range Interpretation Comments Monocytes (test code = Monocytes) 5.2 2.0-12.0 [place] 929091-11-01 04:55:00 Test Item Value Reference Range Interpretation Comments Eosinophils (test code = 1.8 See_Comment [A utomated message] The Eosinophils) system which ge nerated this result tra nsmitted reference range : <=4.0. The reference r pamela was not used to int erpret this result as normal/abnormal . [facility] PlanoDugzzpxCPYAVZAIEI3752-75-47 04:55:00 Test Item Value Reference Range Interpretation Comments Basophils (test code = 0.8 See_Comment [Aut omated message] The Basophils) system which ge nerated this result tra nsmitted reference range : <=1.0. The reference r pamela was not used to int erpret this result as normal/abnormal . [facility] PlanoIhmdourSXPGWCBRFU9736-13-82 04:55:00 Test Item Value Reference Range Interpretation Comments Neutrophils # (test code = Neutrophils 4.5 1.5-8.1 #) [facility] PlanoEhaljtxWXFDWWFIGF5427-80-91 04:55:00 Test Item Value Reference Range Interpretation Comments Lymphocytes # (test code = Lymphocytes 1.7 1.0-5.5 #) [facility] PlanoFplcvpfCULENXLFXK9536-85-57 04:55:00 Test Item Value Reference Range Interpretation Comments Monocytes # (test code 0.3 See_Comment [Aut omated message] The = Monocytes #) system which generated this result tra nsmitted reference range : <=0.8. The reference r pamela was not used to int erpret this result as normal/abnormal . [facility] PlanoHxsmwvuFWLKFLTSBK5725-31-31 04:55:00 Test Item Value Reference Range Interpretation Comments Eosinophils # (test code 0.1 See_Comment [A utomated message] The = Eosinophils #) system whic h generated this result tra nsmitted reference range : <=0.5. The reference r pamela was not used to int erpret this result as normal/abnormal . [facility] PlanoDxbzytwZTTXQITOUM5407-68-18 04:55:00 Test Item Value Reference Range Interpretation Comments Basophils # (test code 0.1 See_Comment [Aut omated message] The = Basophils #) system which generated this result tra nsmitted reference range : <=0.2. The reference r pamela was not used to int erpret this result as normal/abnormal . [facility]2021-11-01 04:55:00 Test Item Value Reference Range Interpretation Comments UA Color (test code = Yellow *NA*(03/24/21 UA Color) 11:55 PM) [facility] AND [id number] 04:55:00 Test Item Value Reference Range Interpretation Comments UA Turbidity (test code = Clear (03/24/21 UA Turbidity) 11:55 PM) [facility] AND [id number] 04:55:00 Test Item Value Reference Range Interpretation Comments UA Spec Grav (test code = UA Spec 1.020 1 Grav) [facility] AND [id number] 04:55:00 Test Item Value Reference Range Interpretation Comments UA pH (test code = UA pH) 6.0 1 5.0-8.0 [facility] AND [id number] 04:55:00 Test Item Value Reference Range Interpretation Comments UA Protein (test code = UA >=300 mg/dL Protein) [facility] AND [id number] 04:55:00 Test Item Value Reference Range Interpretation Comments UA Glucose (test code = UA Glucose) 100 mg/dL [facility] AND [id number] 04:55:00 Test Item Value Reference Range Interpretation Comments UA Ketones (test code Negative *NA*(03/24/21 = UA Ketones) 11:55 PM) [facility] AND [id number] 04:55:00 Test Item Value Reference Range Interpretation Comments UA Bili (test code = Negative *NA*(03/24/21 UA Bili) 11:55 PM) [facility] AND [id number] 04:55:00 Test Item Value Reference Range Interpretation Comments UA Blood (test code = Moderate *ABN*(03/24/21 UA Blood) 11:55 PM) [facility] AND [id number] 04:55:00 Test Item Value Reference Range Interpretation Comments UA Urobilinogen (test code = UA 0.2 0.1-1.0 Urobilinogen) [facility] AND [id number] 04:55:00 Test Item Value Reference Range Interpretation Comments UA Nitrite (test code Negative (03/24/21 = UA Nitrite) 11:55 PM) [facility] AND [id number] 04:55:00 Test Item Value Reference Range Interpretation Comments UA Leuk Est (test Negative (03/24/21 11:55 code = UA Leuk Est) PM) [facility] AND [id number] 04:55:00 Test Item Value Reference Range Interpretation Comments UA Sq Epi (test code = UA Sq Epi) Few /LPF [facility] AND [id number] 04:55:00 Test Item Value Reference Range Interpretation Comments UA WBC (test code = UA WBC) 3-5 /HPF [facility] AND [id number] 04:55:00 Test Item Value Reference Range Interpretation Comments UA RBC (test code = UA RBC) 11-20 /HPF [facility] AND [id number] 04:55:00 Test Item Value Reference Range Interpretation Comments UA Bacteria (test code = UA Few /HPF Bacteria) [facility] AND [id number] 04:55:00 Test Item Value Reference Range Interpretation Comments UA Sperm (test code = UA Sperm) Moderate /HPF [facility]udaCARD[facility] VWRFSXU1696-21-82 04:55:00 Test Item Value Reference Range Interpretation Comments Troponin-I (test code no gt See_Comment [Auto mated message] The = Troponin-I) system which g enerated this result transmit sai reference range : <=0.40. The reference r pamela was not used to interpr et this result as veronica l/abnormal. [facility] HospitalPatient Engagement SystemsAC [id number] 04:55:00 Test Item Value Reference Range Interpretation Comments proBNP (test code = 390 See_Comment [Automa sai message] The proBNP) system which ge nerated this result tra nsmitted reference range : <=125. The reference r pamela was not used to int erpret this result as veronica l/abnormal. [facility] [employer] [id number] 04:55:00 Test Item Value Reference Range Interpretation Comments Glucose Lvl (test code = Glucose Lvl) 111 70-[address] [facility] HospitalTaofang.com JOZIL7268-46-27 04:55:00 Test Item Value Reference Range Interpretation Comments BUN (test code = BUN) 26 7-[address] [facility] HospitalTaofang.com [id number] 04:55:00 Test Item Value Reference Range Interpretation Comments Creatinine Lvl (test code = Creatinine 0.95 0.50-1.40 Lvl) [place] 286391-11-01 04:55:00 Test Item Value Reference Range Interpretation Comments Sodium Lvl (test code = Sodium Lvl) 142 135-145 [place] 286391-11-01 04:55:00 Test Item Value Reference Range Interpretation Comments Potassium Lvl (test code = Potassium 4.1 3.5-5.1 Lvl) [place] 286391-11-01 04:55:00 Test Item Value Reference Range Interpretation Comments Chloride Lvl (test code = Chloride Lvl) 110 95-109 [place] [address]-11-01 04:55:00 Test Item Value Reference Range Interpretation Comments CO2 (test code = CO2) 28 24-32 [place] 286391-11-01 04:55:00 Test Item Value Reference Range Interpretation Comments Calcium Lvl (test code = Calcium Lvl) 8.4 8.5-10.5 [place] 286391-11-01 04:55:00 Test Item Value Reference Range Interpretation Comments AGAP (test code = AGAP) 8.1 10.0-20.0 [place] 286391-11-01 04:55:00 Test Item Value Reference Range Interpretation Comments B/C Ratio (test code = B/C Ratio) 27 1 6-25 [place] [place] 286391-[place]-01 04:55:00 Test Item Value Reference Range Interpretation Comments eGFR (test code = eGFR) 106 [place] 286391-11-01 04:55:00 Test Item Value Reference Range Interpretation Comments Total Protein (test code = Total 4.8 6.4-8.4 Protein) [place] 286391-11-01 04:55:00 Test Item Value Reference Range Interpretation Comments Albumin Lvl (test code = Albumin Lvl) 1.7 3.5-5.0 [place] 85040-11-01 04:55:00 Test Item Value Reference Range Interpretation Comments ALT (test code = ALT) 30 See_Comment [Auto mated message] The system which ge nerated this result transmit sai reference range : <=65. The reference range was not used to interpr et this result as veronica l/abnormal. [place] 286391-11-01 04:55:00 Test Item Value Reference Range Interpretation Comments AST (test code = AST) 31 See_Comment [Auto mated message] The system which ge nerated this result transmit sai reference range : <=37. The reference range was not used to interpr et this result as veronica l/abnormal. [facility] [id number] 04:55:00 Test Item Value Reference Range Interpretation Comments Alk Phos (test code = Alk Phos) 83 39-136 [place] 286391-11-01 04:55:00 Test Item Value Reference Range Interpretation Comments Bili Total (test code = Bili Total) 0.2 0.2-1.3 [place] 286391-11-01 04:55:00 Test Item Value Reference Range Interpretation Comments Globulin (test code = Globulin) 3.1 2.7-4.2 [place] 286391-11-01 04:55:00 Test Item Value Reference Range Interpretation Comments A/G Ratio (test code = A/G Ratio) 0.5 1 0.7-1.6 [place] 929091-11-01 04:55:00 Test Item Value Reference Range Interpretation Comments WBC (test code = WBC) 6.8 3.7-10.4 [place] 929091-11-01 04:55:00 Test Item Value Reference Range Interpretation Comments RBC (test code = RBC) 3.33 4.70-6.10 [place] 929091-11-01 04:55:00 Test Item Value Reference Range Interpretation Comments Hgb (test code = Hgb) 10.9 14.0-18.0 [place] 929091-11-01 04:55:00 Test Item Value Reference Range Interpretation Comments Hct (test code = Hct) 29.6 42.0-54.0 [place] 929091-11-01 04:55:00 Test Item Value Reference Range Interpretation Comments MCV (test code = MCV) 88.7 80.0-94.0 [place] 929091-11-01 04:55:00 Test Item Value Reference Range Interpretation Comments MCH (test code = MCH) 32.7 pg 27.0-31.0 [place] 929091-11-01 04:55:00 Test Item Value Reference Range Interpretation Comments MCHC (test code = MCHC) 36.9 32.0-36.0 [place] [address]40-11-01 04:55:00 Test Item Value Reference Range Interpretation Comments RDW (test code = RDW) 13.7 11.5-14.5 [place] 929091-11-01 04:55:00 Test Item Value Reference Range Interpretation Comments Platelet (test code = Platelet) 184 133-450 [place] 929091-11-01 04:55:00 Test Item Value Reference Range Interpretation Comments MPV (test code = MPV) 8.1 7.4-10.4 [place] 62540-11-01 04:55:00 Test Item Value Reference Range Interpretation Comments Segs (test code = Segs) 66.5 45.0-75.0 [place] 929091-11-01 04:55:00 Test Item Value Reference Range Interpretation Comments Lymphocytes (test code = Lymphocytes) 25.7 20.0-40.0 [place] 929091-11-01 04:55:00 Test Item Value Reference Range Interpretation Comments Monocytes (test code = Monocytes) 5.2 2.0-12.0 [place] 929091-11-01 04:55:00 Test Item Value Reference Range Interpretation Comments Eosinophils (test code = 1.8 See_Comment [A utomated message] The Eosinophils) system which ge nerated this result tra nsmitted reference range : <=4.0. The reference r pamela was not used to int erpret this result as normal/abnormal . [place] 929091-11-01 04:55:00 Test Item Value Reference Range Interpretation Comments Basophils (test code = 0.8 See_Comment [Aut omated message] The Basophils) system which ge nerated this result tra nsmitted reference range : <=1.0. The reference r pamela was not used to int erpret this result as normal/abnormal . [place] 929091-11-01 04:55:00 Test Item Value Reference Range Interpretation Comments Neutrophils # (test code = Neutrophils 4.5 1.5-8.1 #) [place] 929091-11-01 04:55:00 Test Item Value Reference Range Interpretation Comments Lymphocytes # (test code = Lymphocytes 1.7 1.0-5.5 #) [place] 929091-11-01 04:55:00 Test Item Value Reference Range Interpretation Comments Monocytes # (test code 0.3 See_Comment [Aut omated message] The = Monocytes #) system which generated this result tra nsmitted reference range : <=0.8. The reference r pamela was not used to int erpret this result as normal/abnormal . [id number] 04:55:00 Test Item Value Reference Range Interpretation Comments Eosinophils # (test code 0.1 See_Comment [A utomated message] The = Eosinophils #) system whic h generated this result tra nsmitted reference range : <=0.5. The reference r pamela was not used to int erpret this result as normal/abnormal . [id number] 04:55:00 Test Item Value Reference Range Interpretation Comments Basophils # (test code 0.1 See_Comment [Aut omated message] The = Basophils #) system which generated this result tra nsmitted reference range : <=0.2. The reference r pamela was not used to int erpret this result as normal/abnormal . [facility] AND [id number] 04:55:00 Test Item Value Reference Range Interpretation Comments UA Color (test code = Yellow *NA*(03/24/21 UA Color) 11:55 PM) [facility] AND [id number] 04:55:00 Test Item Value Reference Range Interpretation Comments UA Turbidity (test code = Clear (03/24/21 UA Turbidity) 11:55 PM) [facility] AND [id number] 04:55:00 Test Item Value Reference Range Interpretation Comments UA Spec Grav (test code = UA Spec 1.020 1 Grav) [facility] AND [id number] 04:55:00 Test Item Value Reference Range Interpretation Comments UA pH (test code = UA pH) 6.0 1 5.0-8.0 [facility] AND [id number] 04:55:00 Test Item Value Reference Range Interpretation Comments UA Protein (test code = UA >=300 mg/dL Protein) [facility] AND [id number] 04:55:00 Test Item Value Reference Range Interpretation Comments UA Glucose (test code = UA Glucose) 100 mg/dL [facility] AND [id number] 04:55:00 Test Item Value Reference Range Interpretation Comments UA Ketones (test code Negative *NA*(03/24/21 = [facility]A Ketones) 11:55 PM) [facility] [id number] 04:55:00 Test Item Value Reference Range Interpretation Comments UA Bili (test code = Negative *NA*(03/24/21 UA Bili) 11:55 PM) [facility] [id number] 04:55:00 Test Item Value Reference Range Interpretation Comments UA Blood (test code = Moderate *ABN*(03/24/21 UA Blood) 11:55 PM) [facility] [id number] 04:55:00 Test Item Value Reference Range Interpretation Comments UA Urobilinogen (test code = UA 0.2 0.1-1.0 Urobilinogen) [facility] [id number] 04:55:00 Test Item Value Reference Range Interpretation Comments UA Nitrite (test code Negative (03/24/21 = UA Nitrite) 11:55 PM) [facility] [id number] 04:55:00 Test Item Value Reference Range Interpretation Comments UA Leuk Est (test Negative (03/24/21 11:55 code = UA Leuk Est) PM) [facility] [id number] 04:55:00 Test Item Value Reference Range Interpretation Comments UA Sq Epi (test code = UA Sq Epi) Few /LPF [facility] [id number] 04:55:00 Test Item Value Reference Range Interpretation Comments UA WBC (test code = UA WBC) 3-5 /HPF [facility] [id number] 04:55:00 Test Item Value Reference Range Interpretation Comments UA RBC (test code = UA RBC) 11-20 /HPF [facility] [id number] 04:55:00 Test Item Value Reference Range Interpretation Comments UA Bacteria (test code = UA Few /HPF Bacteria) [facility] [id number] 04:55:00 Test Item Value Reference Range Interpretation Comments UA Sperm (test code = UA Sperm) Moderate /HPF [facility] [id number] 04:55:00 Test Item Value Reference Range Interpretation Comments Troponin-I (test code no gt See_Comment [Auto mated message] The = Troponin-I) system which g enerated this result transmit sai reference range : <=0.40. The reference r pamela was not used to interpr et this result as veronica l/abnormal. [facility] [id number] 04:55:00 Test Item Value Reference Range Interpretation Comments proBNP (test code = 390 See_Comment [Automa sai message] The proBNP) system which ge nerated this result tra nsmitted reference range : <=125. The reference r pamela was not used to int erpret this result as veronica l/abnormal. [facility] [employer] [id number] 04:55:00 Test Item Value Reference Range Interpretation Comments Glucose Lvl (test code = Glucose Lvl) 111 70-[address] [facility] [id number] 04:55:00 Test Item Value Reference Range Interpretation Comments BUN (test code = BUN) 26 7-[address] [facility] [id number] 04:55:00 Test Item Value Reference Range Interpretation Comments Creatinine Lvl (test code = Creatinine 0.95 0.50-1.40 Lvl) [facility] [id number] 04:55:00 Test Item Value Reference Range Interpretation Comments Sodium Lvl (test code = Sodium Lvl) 142 135-145 [facility] [employer] [id number] 04:55:00 Test Item Value Reference Range Interpretation Comments Potassium Lvl (test code = Potassium 4.1 3.5-5.1 Lvl) [facility] [id number] 04:55:00 Test Item Value Reference Range Interpretation Comments Chloride Lvl (test code = Chloride Lvl) 110 95-109 [facility] [employer] [id number] 04:55:00 Test Item Value Reference Range Interpretation Comments CO2 (test code = CO2) 28 24-32 [facility] [employer] [id number] 04:55:00 Test Item Value Reference Range Interpretation Comments Calcium Lvl (test code = Calcium Lvl) 8.4 8.5-10.[address] [facility] [id number] 04:55:00 Test Item Value Reference Range Interpretation Comments AGAP (test code = AGAP) 8.1 10.0-20.0 [facility] [employer] [id number] 04:55:00 Test Item Value Reference Range Interpretation Comments B/C Ratio (test code = B/C Ratio) 27 1 6-25 [place] 286391-11-01 04:55:00 Test Item Value Reference Range Interpretation Comments eGFR (test code = eGFR) 106 [place] 286391-11-01 04:55:00 Test Item Value Reference Range Interpretation Comments Total Protein (test code = Total 4.8 6.4-8.4 Protein) [place] 286391-11-01 04:55:00 Test Item Value Reference Range Interpretation Comments Albumin Lvl (test code = Albumin Lvl) 1.7 3.5-5.0 [place] 286391-07-07 18:35:00 Test Item Value Reference Range Interpretation Comments Glucose Lvl (test code = Glucose Lvl) 136 65-99 [place] 286391-07-07 18:35:00 Test Item Value Reference Range Interpretation Comments BUN (test code = BUN) 33 7-25 [facility]2021-07-07 18:35:00 Test Item Value Reference Range Interpretation Comments Creatinine Lvl (test code = Creatinine 0.76 0.60-1.35 Lvl) [facility]2021-07-07 18:35:00 Test Item Value Reference Range Interpretation Comments eGFR NON-AFR. BURKINAN (test code = 122 eGFR NON-AFR. BURKINAN) [facility]2021-07-07 18:35:00 Test Item Value Reference Range Interpretation Comments eGFR (test code = eGFR 141 ) [place] 286391-07-07 18:35:00 Test Item Value Reference Range Interpretation Comments B/C Ratio (test code = B/C Ratio) 43 6-22 [facility]2021-07-07 18:35:00 Test Item Value Reference Range Interpretation Comments Sodium Lvl (test code = Sodium Lvl) 139 135-146 [place] 286391-07-07 18:35:00 Test Item Value Reference Range Interpretation Comments Potassium Lvl (test code = Potassium 4.4 3.5-5.3 Lvl) [place] 286391-07-07 18:35:00 Test Item Value Reference Range Interpretation Comments Chloride Lvl (test code = Chloride Lvl) 110 98-110 [place] 286391-07-07 18:35:00 Test Item Value Reference Range Interpretation Comments CO2 (test code = CO2) 23 20-32 [place] 286391-07-07 18:35:00 Test Item Value Reference Range Interpretation Comments Calcium Lvl (test code = Calcium Lvl) 9.2 8.6-10.3 [place] 286391-07-07 18:35:00 Test Item Value Reference Range Interpretation Comments Total Protein (test code = Total 5.9 6.1-8.1 Protein) [place] 286391-07-07 18:35:00 Test Item Value Reference Range Interpretation Comments Albumin Lvl (test code = Albumin Lvl) 3.6 3.6-5.1 [place] 286391-07-07 18:35:00 Test Item Value Reference Range Interpretation Comments Globulin (test code = Globulin) 2.3 1.9-3.7 [place] 286391-07-07 18:35:00 Test Item Value Reference Range Interpretation Comments A/G Ratio (test code = A/G Ratio) 1.6 1.0-2.5 [place] 286391-07-07 18:35:00 Test Item Value Reference Range Interpretation Comments Bili Total (test code = Bili Total) 0.4 0.2-1.2 [place] 286391-07-07 18:35:00 Test Item Value Reference Range Interpretation Comments Alk Phos (test code = Alk Phos) 65 36-130 [place] 286391-07-07 18:35:00 Test Item Value Reference Range Interpretation Comments ASPARTATE TRANSAMINASE (test code = 13 10-40 ASPARTATE TRANSAMINASE) [place] 286391-07-07 18:35:00 Test Item Value Reference Range Interpretation Comments ALANINE AMINOTRANSFERASE (test code = 15 9-46 ALANINE AMINOTRANSFERASE) [place] 929091-07-07 18:35:00 Test Item Value Reference Range Interpretation Comments WBC X 10x3 (test code = WBC X 10x3) 7.0 3.8-10.8 [place] 929091-07-07 18:35:00 Test Item Value Reference Range Interpretation Comments RBC X 10x6 (test code = RBC X 10x6) 4.13 4.20-5.80 [place] 929091-07-07 18:35:00 Test Item Value Reference Range Interpretation Comments Hgb (test code = Hgb) 12.9 13.2-17.1 [place] 929091-07-07 18:35:00 Test Item Value Reference Range Interpretation Comments Hct (test code = Hct) 37.2 38.5-50.0 [place] 929091-07-07 18:35:00 Test Item Value Reference Range Interpretation Comments MCV (test code = MCV) 90.1 80.0-100.0 [place] 929091-07-07 18:35:00 Test Item Value Reference Range Interpretation Comments MCH (test code = MCH) 31.2 pg 27.0-33.0 [place] 929091-07-07 18:35:00 Test Item Value Reference Range Interpretation Comments MCHC (test code = MCHC) 34.7 32.0-36.0 [place] 929091-07-07 18:35:00 Test Item Value Reference Range Interpretation Comments RDW (test code = RDW) 13.5 11.0-15.0 [place] 929091-07-07 18:35:00 Test Item Value Reference Range Interpretation Comments Platelet (test code = Platelet) 174 140-400 [id number] 18:35:00 Test Item Value Reference Range Interpretation Comments MPV (test code = MPV) 12.1 7.5-12.5 [place] 929091-07-07 18:35:00 Test Item Value Reference Range Interpretation Comments Neutrophils # (test code = Neutrophils 4620 4902-0667 #) [id number] 18:35:00 Test Item Value Reference Range Interpretation Comments Lymphocytes # (test code = Lymphocytes [phone] #) [place] 929091-07-07 18:35:00 Test Item Value Reference Range Interpretation Comments Monocytes # (test code = Monocytes #) 399 200-950 [place] 929091-07-07 18:35:00 Test Item Value Reference Range Interpretation Comments Eosinophils # (test code = Eosinophils 147 15-500 #) [place] 929091-07-07 18:35:00 Test Item Value Reference Range Interpretation Comments Basophils # (test code 42 See_Comment [Aut omated message] The = Basophils #) system which generated this result tra nsmitted reference range : <=200. The reference r pamela was not used to int erpret this result as normal/abnormal . [facility] [id number] 18:35:00 Test Item Value Reference Range Interpretation Comments Segs (test code = Segs) 66 [facility]buYKBVBJYDGX2447-86-40 18:35:00 Test Item Value Reference Range Interpretation Comments Lymphocytes (test code = Lymphocytes) 25.6 [facility] HospitalJgrlohmGSPWQEEOTA4065-30-50 18:35:00 Test Item Value Reference Range Interpretation Comments Monocytes (test code = Monocytes) 5.7 [id number] 18:35:00 Test Item Value Reference Range Interpretation Comments Eosinophils (test code = Eosinophils) 2.1 [facility] HospitalCwvfmjzQOTKOZYPXC2450-39-38 18:35:00 Test Item Value Reference Range Interpretation Comments Basophils (test code = Basophils) 0.6 [facility] [id number] 18:35:00 Test Item Value Reference Range Interpretation Comments Chol (test code = Chol) 198 [facility] [id number] 18:35:00 Test Item Value Reference Range Interpretation Comments HDL (test code = HDL) 53 [facility] BudaXekcfycEDLSWJ0661-54-13 18:35:00 Test Item Value Reference Range Interpretation Comments Trig (test code = Trig) 152 [facility] BudaAfjwbiySQOYLS8399-04-90 18:35:00 Test Item Value Reference Range Interpretation Comments LDL (Calculated) (test code = LDL 118 (Calculated)) [facility] [id number] 18:35:00 Test Item Value Reference Range Interpretation Comments CHD Risk (test code = CHD Risk) 3.7 [facility] BudaPnlhhloRMWZOY3826-89-73 18:35:00 Test Item Value Reference Range Interpretation Comments Non HDL Chol (test code = Non HDL Chol) 145 [facility] [id number] 18:35:00 Test Item Value Reference Range Interpretation Comments Hgb A1C (test code = Hgb A1C) 6.5 [facility] [id number] 18:35:00 Test Item Value Reference Range Interpretation Comments Glucose Lvl (test code = Glucose Lvl) 136 65-99 [facility] [id number] 18:35:00 Test Item Value Reference Range Interpretation Comments BUN (test code = BUN) 33 7-25 [place] 286391-07-07 18:35:00 Test Item Value Reference Range Interpretation Comments Creatinine Lvl (test code = Creatinine 0.76 0.60-1.35 Lvl) [place] 286391-07-07 18:35:00 Test Item Value Reference Range Interpretation Comments eGFR NON-AFR. BURKINAN (test code = 122 eGFR NON-AFR. BURKINAN) [place] 286391-07-07 18:35:00 Test Item Value Reference Range Interpretation Comments eGFR (test code = eGFR 141 ) [place] 286391-07-07 18:35:00 Test Item Value Reference Range Interpretation Comments B/C Ratio (test code = B/C Ratio) 43 6-22 [place] 286391-07-07 18:35:00 Test Item Value Reference Range Interpretation Comments Sodium Lvl (test code = Sodium Lvl) 139 135-146 [place] 286391-07-07 18:35:00 Test Item Value Reference Range Interpretation Comments Potassium Lvl (test code = Potassium 4.4 3.5-5.3 Lvl) [place] 286391-07-07 18:35:00 Test Item Value Reference Range Interpretation Comments Chloride Lvl (test code = Chloride Lvl) 110 98-110 [place] 286391-07-07 18:35:00 Test Item Value Reference Range Interpretation Comments CO2 (test code = CO2) 23 20-32 [place] 286391-07-07 18:35:00 Test Item Value Reference Range Interpretation Comments Calcium Lvl (test code = Calcium Lvl) 9.2 8.6-10.3 [place] 286391-07-07 18:35:00 Test Item Value Reference Range Interpretation Comments Total Protein (test code = Total 5.9 6.1-8.1 Protein) [place] 286391-07-07 18:35:00 Test Item Value Reference Range Interpretation Comments Albumin Lvl (test code = Albumin Lvl) 3.6 3.6-5.1 [place] 286391-07-07 18:35:00 Test Item Value Reference Range Interpretation Comments Globulin (test code = Globulin) 2.3 1.9-3.7 [place] 286391-07-07 18:35:00 Test Item Value Reference Range Interpretation Comments A/G Ratio (test code = A/G Ratio) 1.6 1.0-2.5 [place] 286391-07-07 18:35:00 Test Item Value Reference Range Interpretation Comments Bili Total (test code = Bili Total) 0.4 0.2-1.2 [place] 286391-07-07 18:35:00 Test Item Value Reference Range Interpretation Comments Alk Phos (test code = Alk Phos) 65 36-130 [facility]2021-07-07 18:35:00 Test Item Value Reference Range Interpretation Comments ASPARTATE TRANSAMINASE (test code = 13 10-40 ASPARTATE TRANSAMINASE) [place] 286391-07-07 18:35:00 Test Item Value Reference Range Interpretation Comments ALANINE AMINOTRANSFERASE (test code = 15 9-46 ALANINE AMINOTRANSFERASE) [place] 929091-07-07 18:35:00 Test Item Value Reference Range Interpretation Comments WBC X 10x3 (test code = WBC X 10x3) 7.0 3.8-10.8 [place] 929091-07-07 18:35:00 Test Item Value Reference Range Interpretation Comments RBC X 10x6 (test code = RBC X 10x6) 4.13 4.20-5.80 [place] 929091-07-07 18:35:00 Test Item Value Reference Range Interpretation Comments Hgb (test code = Hgb) 12.9 13.2-17.1 [place] 929091-07-07 18:35:00 Test Item Value Reference Range Interpretation Comments Hct (test code = Hct) 37.2 38.5-50.0 [place] 929091-07-07 18:35:00 Test Item Value Reference Range Interpretation Comments MCV (test code = MCV) 90.1 80.0-100.0 [place] 929091-07-07 18:35:00 Test Item Value Reference Range Interpretation Comments MCH (test code = MCH) 31.2 pg 27.0-33.0 [place] 929091-07-07 18:35:00 Test Item Value Reference Range Interpretation Comments MCHC (test code = MCHC) 34.7 32.0-36.0 [place] 929091-07-07 18:35:00 Test Item Value Reference Range Interpretation Comments RDW (test code = RDW) 13.5 11.0-15.0 [place] 929091-07-07 18:35:00 Test Item Value Reference Range Interpretation Comments Platelet (test code = Platelet) 174 140-400 [place] 929091-07-07 18:35:00 Test Item Value Reference Range Interpretation Comments MPV (test code = MPV) 12.1 7.5-12.5 [facility] PlanoOzdzdfzUDPROPSMJD8672-43-70 18:35:00 Test Item Value Reference Range Interpretation Comments Neutrophils # (test code = Neutrophils 4620 0359-9073 #) [facility] PlanoWezfbsxHDZPYLHAVZ4863-45-70 18:35:00 Test Item Value Reference Range Interpretation Comments Lymphocytes # (test code = Lymphocytes [phone] #) [facility] PlanoDontvkyOHBRJTMICC5635-11-64 18:35:00 Test Item Value Reference Range Interpretation Comments Monocytes # (test code = Monocytes #) 399 200-950 [facility] PlanoXhutcrdWBROYUSMOC1717-72-85 18:35:00 Test Item Value Reference Range Interpretation Comments Eosinophils # (test code = Eosinophils 147 15-500 #) [facility] PlanoJeqyjwrAFGPXZHAQV4586-60-91 18:35:00 Test Item Value Reference Range Interpretation Comments Basophils # (test code 42 See_Comment [Aut omated message] The = Basophils #) system which generated this result tra nsmitted reference range : <=200. The reference r pamela was not used to int erpret this result as normal/abnormal . [facility] PlanoXxngpzxHYEXFFACXQ6660-08-71 18:35:00 Test Item Value Reference Range Interpretation Comments Segs (test code = Segs) 66 [place] 929091-07-07 18:35:00 Test Item Value Reference Range Interpretation Comments Lymphocytes (test code = Lymphocytes) 25.6 [place] 929091-07-07 18:35:00 Test Item Value Reference Range Interpretation Comments Monocytes (test code = Monocytes) 5.7 [place] 929091-07-07 18:35:00 Test Item Value Reference Range Interpretation Comments Eosinophils (test code = Eosinophils) 2.1 [facility] – [place]SZHB[place]ZARXY3873-41-17 18:35:00 Test Item Value Reference Range Interpretation Comments Basophils (test code = Basophils) 0.[address] [facility] HospitalTrqrcmoWTBNWD3801-40-56 18:35:00 Test Item Value Reference Range Interpretation Comments Chol (test code = Chol) [address] [facility] HospitalGkboambHTEYZF7706-94-44 18:35:00 Test Item Value Reference Range Interpretation Comments HDL (test code = HDL) [address] [facility] HospitalSxbxlvyVKDCUC9981-19-12 18:35:00 Test Item Value Reference Range Interpretation Comments Trig (test code = Trig) [address] [facility] HospitalKcedlwbVRQQQF1930-19-47 18:35:00 Test Item Value Reference Range Interpretation Comments LDL (Calculated) (test code = LDL 118 (Calculated)) [facility] HospitalSccynbmXXJUFF3173-37-64 18:35:00 Test Item Value Reference Range Interpretation Comments CHD Risk (test code = CHD Risk) 3.[address] [facility] HospitalMgwjfgcVOAAEH3375-54-35 18:35:00 Test Item Value Reference Range Interpretation Comments Non HDL Chol (test code = Non HDL Chol) [facility] EDBSYVNUS4957[facility]88-11 18:35:00 Test Item Value Reference Range Interpretation Comments Hgb A1C (test code = Hgb A1C) 6.[address] [facility] HospitalClean Filtration TechnologyCARDIAC PWVSKKS1862-93-33 03:53:00 Test Item Value Reference Range Interpretation Comments Troponin-I (test code no gt See_Comment [Auto mated message] The = Troponin-I) system which g enerated this result transmit sai reference range : <=0.40. The reference r pamela was not used to interpr et this result as veronica l/abnormal. [facility] [id number] 03:53:00 Test Item Value Reference Range Interpretation Comments proBNP (test code = 102 See_Comment [Automa sai message] The proBNP) system which ge nerated this result tra nsmitted reference range : <=125. The reference r pamela was not used to int erpret this result as veronica l/abnormal. [facility] [employer] [id number] 03:53:00 Test Item Value Reference Range Interpretation Comments Glucose Lvl (test code = Glucose Lvl) 348 70-99 [facility] [employer] WAOKR3289-27-06 03:53:00 Test Item Value Reference Range Interpretation Comments BUN (test code = BUN) 25 7-22 [facility] [employer] [id number] 03:53:00 Test Item Value Reference Range Interpretation Comments Creatinine Lvl (test code = Creatinine 0.74 0.50-1.40 Lvl) [place] 286391-06-06 03:53:00 Test Item Value Reference Range Interpretation Comments Sodium Lvl (test code = Sodium Lvl) 140 135-145 [place] 286391-06-06 03:53:00 Test Item Value Reference Range Interpretation Comments Potassium Lvl (test code = Potassium 4.3 3.5-5.1 Lvl) [place] 286391-06-06 03:53:00 Test Item Value Reference Range Interpretation Comments Chloride Lvl (test code = Chloride Lvl) 104 95-109 [place] 286391-06-06 03:53:00 Test Item Value Reference Range Interpretation Comments CO2 (test code = CO2) 30 24-32 [place] 286391-06-06 03:53:00 Test Item Value Reference Range Interpretation Comments Calcium Lvl (test code = Calcium Lvl) 8.2 8.5-10.5 [place] 286391-06-06 03:53:00 Test Item Value Reference Range Interpretation Comments AGAP (test code = AGAP) 10.3 10.0-20.0 [place] 286391-06-06 03:53:00 Test Item Value Reference Range Interpretation Comments B/C Ratio (test code = B/C Ratio) 34 1 6-25 [place] 286391-06-06 03:53:00 Test Item Value Reference Range Interpretation Comments eGFR (test code = eGFR) 124 [place] 286391-06-06 03:53:00 Test Item Value Reference Range Interpretation Comments Total Protein (test code = Total 5.4 6.4-8.4 Protein) [place] 286391-06-06 03:53:00 Test Item Value Reference Range Interpretation Comments Albumin Lvl (test code = Albumin Lvl) 2.1 3.5-5.0 [place] 286391-06-06 03:53:00 Test Item Value Reference Range Interpretation Comments ALT (test code = ALT) 52 See_Comment [Auto mated message] The system which ge nerated this result transmit sai reference range : <=65. The reference range was not used to interpr et this result as veronica l/abnormal. [facility] [id number] 03:53:00 Test Item Value Reference Range Interpretation Comments AST (test code = AST) 28 See_Comment [Auto mated message] The system which ge nerated this result transmit sai reference range : <=37. The reference range was not used to interpr et this result as veronica l/abnormal. [place] 286391-06-06 03:53:00 Test Item Value Reference Range Interpretation Comments Alk Phos (test code = Alk Phos) 114 39-136 [facility] [id number] 03:53:00 Test Item Value Reference Range Interpretation Comments Bili Total (test code = Bili Total) 0.3 0.2-1.3 [place] 286391-06-06 03:53:00 Test Item Value Reference Range Interpretation Comments Globulin (test code = Globulin) 3.3 2.7-4.2 [facility] ZYUTB1182-12-05 03:53:00 Test Item Value Reference Range Interpretation Comments A/G Ratio (test code = A/G Ratio) 0.6 1 0.7-1.6 [place] 286391-06-06 03:53:00 Test Item Value Reference Range Interpretation Comments Magnesium Lvl (test code = Magnesium 1.9 1.8-2.4 Lvl) [facility] [place]anoMlcpyedIIBHNCDSDS7707-75-73 03:53:00 Test Item Value Reference Range Interpretation Comments WBC (test code = WBC) 5.6 3.7-10.4 [place] 929091-06-06 03:53:00 Test Item Value Reference Range Interpretation Comments RBC (test code = RBC) 3.61 4.70-6.10 [place] 929091-06-06 03:53:00 Test Item Value Reference Range Interpretation Comments Hgb (test code = Hgb) 11.3 14.0-18.0 [place] 929091-06-06 03:53:00 Test Item Value Reference Range Interpretation Comments Hct (test code = Hct) 32.2 42.0-54.0 [place] 929091-06-06 03:53:00 Test Item Value Reference Range Interpretation Comments MCV (test code = MCV) 89.1 80.0-94.0 [place] 929091-06-06 03:53:00 Test Item Value Reference Range Interpretation Comments MCH (test code = MCH) 31.3 pg 27.0-31.0 [place] 929091-06-06 03:53:00 Test Item Value Reference Range Interpretation Comments MCHC (test code = MCHC) 35.1 32.0-36.0 [facility] [place]anoUduzkdtQBLDWOMDFM7845-28-60 03:53:00 Test Item Value Reference Range Interpretation Comments RDW (test code = RDW) 13.6 11.5-14.5 [facility] PlanoIpmizubKAXYEWCETD0145-66-33 03:53:00 Test Item Value Reference Range Interpretation Comments Platelet (test code = Platelet) 162 133-450 [facility] PlanoAqsaqoeOIYLBAIFSM9796-45-04 03:53:00 Test Item Value Reference Range Interpretation Comments MPV (test code = MPV) 9.2 7.4-10.4 [place] 929091-06-06 03:53:00 Test Item Value Reference Range Interpretation Comments Segs (test code = Segs) 66.4 45.0-75.0 [facility] PlanoDczrtitVMAFPJEFQI7555-89-51 03:53:00 Test Item Value Reference Range Interpretation Comments Lymphocytes (test code = Lymphocytes) 25.9 20.0-40.0 [facility] PlanoLdbnovqSYYBATJTCY4378-63-56 03:53:00 Test Item Value Reference Range Interpretation Comments Monocytes (test code = Monocytes) 5.4 2.0-12.0 [facility] PlanoTphlcdpPLVBFYUVBW4402-29-55 03:53:00 Test Item Value Reference Range Interpretation Comments Eosinophils (test code = 1.4 See_Comment [A utomated message] The Eosinophils) system which ge nerated this result tra nsmitted reference range : <=4.0. The reference r pamela was not used to int erpret this result as normal/abnormal . [place] 929091-06-06 03:53:00 Test Item Value Reference Range Interpretation Comments Basophils (test code = 0.9 See_Comment [Aut omated message] The Basophils) system which ge nerated this result tra nsmitted reference range : <=1.0. The reference r pamela was not used to int erpret this result as normal/abnormal . [place] 929091-06-06 03:53:00 Test Item Value Reference Range Interpretation Comments Neutrophils # (test code = Neutrophils 3.7 1.5-8.1 #) [facility] HospitalRjgttabCFSJNFIEEX8443-20-20 03:53:00 Test Item Value Reference Range Interpretation Comments Lymphocytes # (test code = Lymphocytes 1.5 1.0-5.5 #) [facility] PlanoTchqdsnDHKJHENPMT4733-48-18 03:53:00 Test Item Value Reference Range Interpretation Comments Monocytes # (test code 0.3 See_Comment [Aut omated message] The = Monocytes #) system which generated this result tra nsmitted reference range : <=0.8. The reference r pamela was not used to int erpret this result as normal/abnormal . [facility] BudaZxlwumpSFSAWUWMWH6757-10-36 03:53:00 Test Item Value Reference Range Interpretation Comments Eosinophils # (test code 0.1 See_Comment [A utomated message] The = Eosinophils #) system whic h generated this result tra nsmitted reference range : <=0.5. The reference r pamela was not used to int erpret this result as normal/abnormal . [facility] HospitalShipEarly KBUBONZ7189-86-44 03:53:00 Test Item Value Reference Range Interpretation Comments Troponin-I (test code no gt See_Comment [Auto mated message] The = Troponin-I) system which g enerated this result transmit sai reference range : <=0.40. The reference r pamela was not used to interpr et this result as veronica l/abnormal. [facility]2021-06-06 03:53:00 Test Item Value Reference Range Interpretation Comments proBNP (test code = 102 See_Comment [Automa sai message] The proBNP) system which ge nerated this result tra nsmitted reference range : <=125. The reference r pamela was not used to int erpret this result as veronica l/abnormal. [facility] [employer]2021-06-06 03:53:00 Test Item Value Reference Range Interpretation Comments Glucose Lvl (test code = Glucose Lvl) 348 70-[address] [facility] [address] HospitalTaofang.com VUIXN3222-07-94 03:53:00 Test Item Value Reference Range Interpretation Comments BUN (test code = BUN) 25 7-22 [facility] [employer]2021-06-06 03:53:00 Test Item Value Reference Range Interpretation Comments Creatinine Lvl (test code = Creatinine 0.74 0.50-1.40 Lvl) [place] 286391-06-06 03:53:00 Test Item Value Reference Range Interpretation Comments Sodium Lvl (test code = Sodium Lvl) 140 135-145 [place] 286391-06-06 03:53:00 Test Item Value Reference Range Interpretation Comments Potassium Lvl (test code = Potassium 4.3 3.5-5.1 Lvl) [place] 286391-06-06 03:53:00 Test Item Value Reference Range Interpretation Comments Chloride Lvl (test code = Chloride Lvl) 104 95-109 [place] 286391-06-06 03:53:00 Test Item Value Reference Range Interpretation Comments CO2 (test code = CO2) 30 24-32 [place] 286391-06-06 03:53:00 Test Item Value Reference Range Interpretation Comments Calcium Lvl (test code = Calcium Lvl) 8.2 8.5-10.5 [place] 286391-06-06 03:53:00 Test Item Value Reference Range Interpretation Comments AGAP (test code = AGAP) 10.3 10.0-20.0 [place] 286391-06-06 03:53:00 Test Item Value Reference Range Interpretation Comments B/C Ratio (test code = B/C Ratio) 34 1 6-25 [place] 286391-06-06 03:53:00 Test Item Value Reference Range Interpretation Comments eGFR (test code = eGFR) 124 [place] 286391-06-06 03:53:00 Test Item Value Reference Range Interpretation Comments Total Protein (test code = Total 5.4 6.4-8.4 Protein) [place] 286391-06-06 03:53:00 Test Item Value Reference Range Interpretation Comments Albumin Lvl (test code = Albumin Lvl) 2.1 3.5-5.0 [place] 286391-06-06 03:53:00 Test Item Value Reference Range Interpretation Comments ALT (test code = ALT) 52 See_Comment [Auto mated message] The system which ge nerated this result transmit sai reference range : <=65. The reference range was not used to interpr et this result as veronica l/abnormal. [place] 286391-06-06 03:53:00 Test Item Value Reference Range Interpretation Comments AST (test code = AST) 28 See_Comment [Auto mated message] The system which ge nerated this result transmit sai reference range : <=37. The reference range was not used to interpr et this result as veronica l/abnormal. [place] 286391-06-06 03:53:00 Test Item Value Reference Range Interpretation Comments Alk Phos (test code = Alk Phos) 114 39-136 [place] 286391-06-06 03:53:00 Test Item Value Reference Range Interpretation Comments Bili Total (test code = Bili Total) 0.3 0.2-1.3 [place] 286391-06-06 03:53:00 Test Item Value Reference Range Interpretation Comments Globulin (test code = Globulin) 3.3 2.7-4.2 [place] 286391-06-06 03:53:00 Test Item Value Reference Range Interpretation Comments A/G Ratio (test code = A/G Ratio) 0.6 1 0.7-1.6 [place] 286391-06-06 03:53:00 Test Item Value Reference Range Interpretation Comments Magnesium Lvl (test code = Magnesium 1.9 1.8-2.4 Lvl) [place] 929091-06-06 03:53:00 Test Item Value Reference Range Interpretation Comments WBC (test code = WBC) 5.6 3.7-10.4 [place] 929091-06-06 03:53:00 Test Item Value Reference Range Interpretation Comments RBC (test code = RBC) 3.61 4.70-6.10 [place] 929091-06-06 03:53:00 Test Item Value Reference Range Interpretation Comments Hgb (test code = Hgb) 11.3 14.0-18.0 [place] 929091-06-06 03:53:00 Test Item Value Reference Range Interpretation Comments Hct (test code = Hct) 32.2 42.0-54.0 [place] 929091-06-06 03:53:00 Test Item Value Reference Range Interpretation Comments MCV (test code = MCV) 89.1 80.0-94.0 [place] 929091-06-06 03:53:00 Test Item Value Reference Range Interpretation Comments MCH (test code = MCH) 31.3 pg 27.0-31.0 [facility]anoFzxjjqfWTHNWZKMGT8122-25-04 03:53:00 Test Item Value Reference Range Interpretation Comments MCHC (test code = MCHC) 35.1 32.0-36.0 [facility] PlanoRdcjxeoONVKCRYRBC4306-03-43 03:53:00 Test Item Value Reference Range Interpretation Comments RDW (test code = RDW) 13.6 11.5-14.5 [place] 929091-06-06 03:53:00 Test Item Value Reference Range Interpretation Comments Platelet (test code = Platelet) 162 133-450 [facility] PlanoIdmkovjVRRUSIRSUI5878-90-28 03:53:00 Test Item Value Reference Range Interpretation Comments MPV (test code = MPV) 9.2 7.4-10.4 [place] 929091-06-06 03:53:00 Test Item Value Reference Range Interpretation Comments Segs (test code = Segs) 66.4 45.0-75.0 [place] 929091-06-06 03:53:00 Test Item Value Reference Range Interpretation Comments Lymphocytes (test code = Lymphocytes) 25.9 20.0-40.0 [place] 929091-06-06 03:53:00 Test Item Value Reference Range Interpretation Comments Monocytes (test code = Monocytes) 5.4 2.0-12.0 [facility] PlanoFrehzutBXZGNXUCDI7797-04-32 03:53:00 Test Item Value Reference Range Interpretation Comments Eosinophils (test code = 1.4 See_Comment [A utomated message] The Eosinophils) system which ge nerated this result tra nsmitted reference range : <=4.0. The reference r pamela was not used to int erpret this result as normal/abnormal . [facility] PlanoYnozzolWDPOSZECJV5515-84-83 03:53:00 Test Item Value Reference Range Interpretation Comments Basophils (test code = 0.9 See_Comment [Aut omated message] The Basophils) system which ge nerated this result tra nsmitted reference range : <=1.0. The reference r pamela was not used to int erpret this result as normal/abnormal . [place] 929091-06-06 03:53:00 Test Item Value Reference Range Interpretation Comments Neutrophils # (test code = Neutrophils 3.7 1.5-8.1 #) [facility] HospitalQpzmlduTQJCJVGYXB5963-01-96 03:53:00 Test Item Value Reference Range Interpretation Comments Lymphocytes # (test code = Lymphocytes 1.5 1.0-5.5 #) [facility] HospitalFnlceasLKAKNKFQHQ3569-65-67 03:53:00 Test Item Value Reference Range Interpretation Comments Monocytes # (test code 0.3 See_Comment [Aut omated message] The = Monocytes #) system which generated this result tra nsmitted reference range : <=0.8. The reference r pamela was not used to int erpret this result as normal/abnormal . [facility] HospitalOfhiewaNUAGOKWCEF6800-89-53 03:53:00 Test Item Value Reference Range Interpretation Comments Eosinophils # (test code 0.1 See_Comment [A utomated message] The = Eosinophils #) system whic h generated this result tra nsmitted reference range : <=0.5. The reference r pamela was not used to int erpret this result as normal/abnormal . [employer] PHIAGOA2722-90-21 02:01:00 Test Item Value Reference Range Interpretation Comments Total CK (test code = Total CK) 157 12-191 [facility] [employer] AOMABEC0232-86-29 02:01:00 Test Item Value Reference Range Interpretation Comments BNP (test code = BNP) 3 [facility]2017-07-28 02:01:00 Test Item Value Reference Range Interpretation Comments Troponin-I (test code no gt See_Comment [Auto mated message] The = Troponin-I) system which g enerated this result transmit sai reference range : <=0.40. The reference r pamela was not used to interpr et this result as veronica l/abnormal. [employer] [id number] 02:01:00 Test Item Value Reference Range Interpretation Comments CK MB (test code = CK MB) 0.9 0.5-3.6 [facility] [employer]2017-07-28 02:01:00 Test Item Value Reference Range Interpretation Comments CK MB Index (test 0.6 See_Comment [Automate d message] The code = CK MB Index) system w [facility] generated this result transmit sai reference range : <=2.5. The reference range was not used to interpr et this result as veronica l/abnormal. [facility]2017-07-28 02:01:00 Test Item Value Reference Range Interpretation Comments eGFR (test code = eGFR) 131 [facility]2017-07-28 02:01:00 Test Item Value Reference Range Interpretation Comments A/G Ratio (test code = A/G Ratio) 1.3 0.7-1.6 [facility]2017-07-28 02:01:00 Test Item Value Reference Range Interpretation Comments Globulin (test code = Globulin) 3.1 2.7-4.2 [facility]2017-07-28 02:01:00 Test Item Value Reference Range Interpretation Comments B/C Ratio (test code = B/C Ratio) 21 - [facility]2017-07-28 02:01:00 Test Item Value Reference Range Interpretation Comments BUN (test code = BUN) 14 - [facility]2017-07-28 02:01:00 Test Item Value Reference Range Interpretation Comments Glucose Lvl (test code = Glucose Lvl) 284 70-99 [facility]2017-07-28 02:01:00 Test Item Value Reference Range Interpretation Comments Creatinine Lvl (test code = Creatinine 0.68 0.50-1.40 Lvl) [facility]2017-07-28 02:01:00 Test Item Value Reference Range Interpretation Comments Chloride Lvl (test code = Chloride Lvl) 101 95-109 [facility]2017-07-28 02:01:00 Test Item Value Reference Range Interpretation Comments CO2 (test code = CO2) 31 24-32 [facility]2017-07-28 02:01:00 Test Item Value Reference Range Interpretation Comments Sodium Lvl (test code = Sodium Lvl) 139 135-145 [facility]2017-07-28 02:01:00 Test Item Value Reference Range Interpretation Comments Potassium Lvl (test code = Potassium 4.1 3.5-5.1 Lvl) [facility]2017-07-28 02:01:00 Test Item Value Reference Range Interpretation Comments AGAP (test code = AGAP) 11.1 10.0-20.0 [facility]2017-07-28 02:01:00 Test Item Value Reference Range Interpretation Comments Alk Phos (test code = Alk Phos) 85 39-136 [facility]2017-07-28 02:01:00 Test Item Value Reference Range Interpretation Comments Bili Total (test code = Bili Total) 0.6 0.2-1.3 [facility]2017-07-28 02:01:00 Test Item Value Reference Range Interpretation Comments Total Protein (test code = Total 7.1 6.4-8.4 Protein) [facility]2017-07-28 02:01:00 Test Item Value Reference Range Interpretation Comments Albumin Lvl (test code = Albumin Lvl) 4.0 3.5-5.0 [facility]2017-07-28 02:01:00 Test Item Value Reference Range Interpretation Comments ALT (test code = ALT) 48 See_Comment [Auto mated message] The system which ge nerated this result transmit sai reference range : <=65. The reference range was not used to interpr et this result as veronica l/abnormal. [facility]2017-07-28 02:01:00 Test Item Value Reference Range Interpretation Comments AST (test code = AST) 18 See_Comment [Auto mated message] The system which ge nerated this result transmit sai reference range : <=37. The reference range was not used to interpr et this result as veronica l/abnormal. [facility]2017-07-28 02:01:00 Test Item Value Reference Range Interpretation Comments Calcium Lvl (test code = Calcium Lvl) 9.0 8.5-10.5 [facility] PlanoZdmyrmyQRBPBZFBMH9813-87-62 02:01:00 Test Item Value Reference Range Interpretation Comments RBC (test code = RBC) 5.22 4.70-6.10 [facility] PlanoUofoevuPTBRBBCPYF8759-42-91 02:01:00 Test Item Value Reference Range Interpretation Comments MCV (test code = MCV) 89.9 80.0-94.0 [facility] PlanoYtfrbofZATKPTWEVP4953-46-63 02:01:00 Test Item Value Reference Range Interpretation Comments MCH (test code = MCH) 30.7 pg 27.0-31.0 [facility] PlanoQfxbylqDMVEPELJSU5131-77-21 02:01:00 Test Item Value Reference Range Interpretation Comments Hgb (test code = Hgb) 16.0 14.0-18.0 [place] 690877-07-28 02:01:00 Test Item Value Reference Range Interpretation Comments Hct (test code = Hct) 46.9 42.0-54.0 [facility] PlanoLzjgfhyNCVTYXGODX7635-85-04 02:01:00 Test Item Value Reference Range Interpretation Comments Platelet (test code = Platelet) 147 133-450 [facility] PlanoLjtnxamEDMPLPPPTM1237-27-07 02:01:00 Test Item Value Reference Range Interpretation Comments MPV (test code = MPV) 9.6 7.4-10.4 [facility] PlanoXljdnsrXWYAVEMAXL1839-69-98 02:01:00 Test Item Value Reference Range Interpretation Comments MCHC (test code = MCHC) 34.1 32.0-36.0 [facility] PlanoZtuqhjwUELLQPIVMZ3077-15-66 02:01:00 Test Item Value Reference Range Interpretation Comments RDW (test code = RDW) 13.1 11.5-14.5 [facility] PlanoBwhtjxlCDQMGKERXW8205-24-39 02:01:00 Test Item Value Reference Range Interpretation Comments WBC (test code = WBC) 6.1 3.7-10.4 [facility] PlanoObceihkKYJQHOFAIB6958-61-94 02:01:00 Test Item Value Reference Range Interpretation Comments PTT (test code = PTT) 29.2 s 22.9-35.8 [facility] PlanoPzdfyvfVYQVQQVESR2191-49-12 02:01:00 Test Item Value Reference Range Interpretation Comments PT (test code = PT) 12.5 s 12.0-14.7 [facility] PlanoAoqmggmJTLHSVOYLN0970-43-19 02:01:00 Test Item Value Reference Range Interpretation Comments INR (test code = INR) 0.91 0.85-1.17 [facility] PlanoNatacteVZWCHMZCEA9154-76-66 02:01:00 Test Item Value Reference Range Interpretation Comments Basophils # (test code 0.0 See_Comment [Aut omated message] The = Basophils #) system which generated this result tra nsmitted reference range : <=0.2. The reference r pamela was not used to int erpret this result as normal/abnormal . [facility] PlanoRuictgyLQIMLTNSCH2317-41-97 02:01:00 Test Item Value Reference Range Interpretation Comments Eosinophils (test code = 1.0 See_Comment [A utomated message] The Eosinophils) system which ge nerated this result tra nsmitted reference range : <=4.0. The reference r pamela was not used to int erpret this result as normal/abnormal . [id number] 02:01:00 Test Item Value Reference Range Interpretation Comments Monocytes (test code = Monocytes) 6.6 2.0-12.0 [id number] 02:01:00 Test Item Value Reference Range Interpretation Comments Lymphocytes (test code = Lymphocytes) 32.0 20.0-40.0 [facility] [id number] 02:01:00 Test Item Value Reference Range Interpretation Comments Segs-Bands # (test code = Segs-Bands #) 3.7 1.5-8.1 [id number] 02:01:00 Test Item Value Reference Range Interpretation Comments Basophils (test code = 0.4 See_Comment [Aut omated message] The Basophils) system which ge nerated this result tra nsmitted reference range : <=1.0. The reference r pamela was not used to int erpret this result as normal/abnormal . [facility] [id number] 02:01:00 Test Item Value Reference Range Interpretation Comments Eosinophils # (test code 0.1 See_Comment [A utomated message] The = Eosinophils #) system whic h generated this result tra nsmitted reference range : <=0.5. The reference r pamela was not used to int erpret this result as normal/abnormal . [id number] 02:01:00 Test Item Value Reference Range Interpretation Comments Monocytes # (test code 0.4 See_Comment [Aut omated message] The = Monocytes #) system which generated this result tra nsmitted reference range : <=0.8. The reference r pamela was not used to int erpret this result as normal/abnormal . [facility] [id number] 02:01:00 Test Item Value Reference Range Interpretation Comments Lymphocytes # (test code = Lymphocytes 2.0 1.0-5.5 #) [id number] 02:01:00 Test Item Value Reference Range Interpretation Comments Segs (test code = Segs) 60.0 45.0-75.0 [facility]2017-07-28 02:01:00 Test Item Value Reference Range Interpretation Comments Total CK (test code = Total CK) 157 12-191 [facility] [id number] 02:01:00 Test Item Value Reference Range Interpretation Comments BNP (test code = BNP) 3 [facility] [id number] 02:01:00 Test Item Value Reference Range Interpretation Comments Troponin-I (test code no gt See_Comment [Auto mated message] The = Troponin-I) system which g enerated this result transmit sai reference range : <=0.40. The reference r pamela was not used to interpr et this result as veronica l/abnormal. [facility] [employer] [id number] 02:01:00 Test Item Value Reference Range Interpretation Comments CK MB (test code = CK MB) 0.9 0.5-3.6 [facility] [employer] [id number] 02:01:00 Test Item Value Reference Range Interpretation Comments CK MB Index (test 0.6 See_Comment [Automate d message] The code = CK MB Index) system w [facility] generated this result transmit sai reference range : <=2.5. The reference range was not used to interpr et this result as veronica l/abnormal. [employer]2017-07-28 02:01:00 Test Item Value Reference Range Interpretation Comments eGFR (test code = eGFR) 131 [facility] [employer] [id number] 02:01:00 Test Item Value Reference Range Interpretation Comments A/G Ratio (test code = A/G Ratio) 1.3 0.7-1.6 [facility] [employer]2017-07-28 02:01:00 Test Item Value Reference Range Interpretation Comments Globulin (test code = Globulin) 3.1 2.7-4.2 [employer] [id number] 02:01:00 Test Item Value Reference Range Interpretation Comments B/C Ratio (test code = B/C Ratio) 21 6-25 [employer] [id number] 02:01:00 Test Item Value Reference Range Interpretation Comments BUN (test code = BUN) 14 7-22 [employer] [id number] 02:01:00 Test Item Value Reference Range Interpretation Comments Glucose Lvl (test code = Glucose Lvl) 284 70-99 [employer] [id number] 02:01:00 Test Item Value Reference Range Interpretation Comments Creatinine Lvl (test code = Creatinine 0.68 0.50-1.40 Lvl) [facility]2017-07-28 02:01:00 Test Item Value Reference Range Interpretation Comments Chloride Lvl (test code = Chloride Lvl) 101 95-109 [facility]2017-07-28 02:01:00 Test Item Value Reference Range Interpretation Comments CO2 (test code = CO2) 31 24-32 [facility]2017-07-28 02:01:00 Test Item Value Reference Range Interpretation Comments Sodium Lvl (test code = Sodium Lvl) 139 135-145 [facility]2017-07-28 02:01:00 Test Item Value Reference Range Interpretation Comments Potassium Lvl (test code = Potassium 4.1 3.5-5.1 Lvl) [facility]2017-07-28 02:01:00 Test Item Value Reference Range Interpretation Comments AGAP (test code = AGAP) 11.1 10.0-20.0 [facility]2017-07-28 02:01:00 Test Item Value Reference Range Interpretation Comments Alk Phos (test code = Alk Phos) 85 39-136 [facility]2017-07-28 02:01:00 Test Item Value Reference Range Interpretation Comments Bili Total (test code = Bili Total) 0.6 0.2-1.3 [facility]2017-07-28 02:01:00 Test Item Value Reference Range Interpretation Comments Total Protein (test code = Total 7.1 6.4-8.4 Protein) [facility]2017-07-28 02:01:00 Test Item Value Reference Range Interpretation Comments Albumin Lvl (test code = Albumin Lvl) 4.0 3.5-5.0 [facility]2017-07-28 02:01:00 Test Item Value Reference Range Interpretation Comments ALT (test code = ALT) 48 See_Comment [Auto mated message] The system which ge nerated this result transmit sai reference range : <=65. The reference range was not used to interpr et this result as veronica l/abnormal. [facility]2017-07-28 02:01:00 Test Item Value Reference Range Interpretation Comments AST (test code = AST) 18 See_Comment [Auto mated message] The system which ge nerated this result transmit sai reference range : <=37. The reference range was not used to interpr et this result as veronica l/abnormal. [facility]2017-07-28 02:01:00 Test Item Value Reference Range Interpretation Comments Calcium Lvl (test code = Calcium Lvl) 9.0 8.5-10.5 [id number] 02:01:00 Test Item Value Reference Range Interpretation Comments RBC (test code = RBC) 5.22 4.70-6.10 [facility] [id number] 02:01:00 Test Item Value Reference Range Interpretation Comments MCV (test code = MCV) 89.9 80.0-94.0 [facility] PlanoWhkwlneJTHQBYYTQT1350-09-18 02:01:00 Test Item Value Reference Range Interpretation Comments MCH (test code = MCH) 30.7 pg 27.0-31.0 [facility] [id number] 02:01:00 Test Item Value Reference Range Interpretation Comments Hgb (test code = Hgb) 16.0 14.0-18.0 [facility] [id number] 02:01:00 Test Item Value Reference Range Interpretation Comments Hct (test code = Hct) 46.9 42.0-54.0 [facility] [id number] 02:01:00 Test Item Value Reference Range Interpretation Comments Platelet (test code = Platelet) 147 133-450 [facility] [id number] 02:01:00 Test Item Value Reference Range Interpretation Comments MPV (test code = MPV) 9.6 7.4-10.4 [facility] [id number] 02:01:00 Test Item Value Reference Range Interpretation Comments MCHC (test code = MCHC) 34.1 32.0-36.0 [facility] [id number] 02:01:00 Test Item Value Reference Range Interpretation Comments RDW (test code = RDW) 13.1 11.5-14.5 [facility] [id number] 02:01:00 Test Item Value Reference Range Interpretation Comments WBC (test code = WBC) 6.1 3.7-10.4 [facility] [id number] 02:01:00 Test Item Value Reference Range Interpretation Comments PTT (test code = PTT) 29.2 s 22.9-35.8 [facility] [id number] 02:01:00 Test Item Value Reference Range Interpretation Comments PT (test code = PT) 12.5 s 12.0-14.7 [facility] [id number] 02:01:00 Test Item Value Reference Range Interpretation Comments INR (test code = INR) 0.91 0.85-1.17 [facility] PlanoWlaoacnKQNUHQGWNY3713-07-27 02:01:00 Test Item Value Reference Range Interpretation Comments Basophils # (test code 0.0 See_Comment [Aut omated message] The = Basophils #) system which generated this result tra nsmitted reference range : <=0.2. The reference r pamela was not used to int erpret this result as normal/abnormal . [facility] [id number] 02:01:00 Test Item Value Reference Range Interpretation Comments Eosinophils (test code = 1.0 See_Comment [A utomated message] The Eosinophils) system which ge nerated this result tra nsmitted reference range : <=4.0. The reference r pamela was not used to int erpret this result as normal/abnormal . [facility] [id number] 02:01:00 Test Item Value Reference Range Interpretation Comments Monocytes (test code = Monocytes) 6.6 2.0-12.0 [facility] [id number] 02:01:00 Test Item Value Reference Range Interpretation Comments Lymphocytes (test code = Lymphocytes) 32.0 20.0-40.0 [facility] [id number] 02:01:00 Test Item Value Reference Range Interpretation Comments Segs-Bands # (test code = Segs-Bands #) 3.7 1.5-8.1 [facility] [id number] 02:01:00 Test Item Value Reference Range Interpretation Comments Basophils (test code = 0.4 See_Comment [Aut omated message] The Basophils) system which ge nerated this result tra nsmitted reference range : <=1.0. The reference r pamela was not used to int erpret this result as normal/abnormal . [facility] [id number] 02:01:00 Test Item Value Reference Range Interpretation Comments Eosinophils # (test code 0.1 See_Comment [A utomated message] The = Eosinophils #) system whic h generated this result tra nsmitted reference range : <=0.5. The reference r pamela was not used to int erpret this result as normal/abnormal . [facility] [id number] 02:01:00 Test Item Value Reference Range Interpretation Comments Monocytes # (test code 0.4 See_Comment [Aut omated message] The = Monocytes #) system which generated this result tra nsmitted reference range : <=0.8. The reference r pamela was not used to int erpret this result as normal/abnormal . [facility] [id number] 02:01:00 Test Item Value Reference Range Interpretation Comments Lymphocytes # (test code = Lymphocytes 2.0 1.0-5.5 #) [facility] [id number] 02:01:00 Test Item Value Reference Range Interpretation Comments Segs (test code = Segs) 60.0 45.0-75.0 [facility]
[2022-06-25 22:28] LABS: Absolute Lymphocytes (CBC) 0.7 K/uL (0.7-4.9); Hematocrit 25.5 % (39.6-49.0); MCV 90.4 fL (80-100); MPV 9.2 fL (7.6-11.3); RBC Red Blood Cell Count 2.83 M/uL (4.33-5.43)
[2022-06-25 22:44] LABS: Protime INR 1.31
[2022-06-25] MEDS ORDERED: ACETAMINOPHEN 500 MG TAB ONE (22:46)
[2022-06-25 22:55] LABS: Magnesium 1.7 mg/dL (1.6-2.4); Potassium 5.2 mmol/L (3.5-5.1)
[2022-06-25 23:34] LABS: SARS-COV-2 RT PCR NEGATIVE (NEGATIVE)
[2022-06-25 23:37] LABS: Blood Morphology Comment NOT SEEN (NOT SEEN); Platelet Estimate ADEQ
[2022-06-25] MEDS ORDERED: VANCOMYCIN 1 GM/VIAL ONE (23:56)
[2022-06-25] MEDS ORDERED: ALBUTEROL 2.5 MG/3 ML NEB SOL ONE (23:56)
[2022-06-25] MEDS ORDERED: NA CHLORIDE 0.9% 100 ML ONE (23:56)
[2022-06-25] MEDS ORDERED: NA CHLORIDE 0.9% 0 ML ONE (23:56)
[2022-06-25] MEDS ORDERED: CEFEPIME 1 GM/VIAL ONE (23:57)
--- NOTE | 2022-06-26 00:06 | EDPHYS ---
Physician Documentation [facility] Name: Jared Mcintyre Age: 31 yrs Sex: Male : 1990 Arrival Date: 06/25/2022 Time: 21:38 Bed 4 Private MD: ED Physician Henry Martinez HPI: 06/25 22:10 This 31 yrs old Male presents to ER via Ambulatory with complaints of Wound Infection. cp 22:10 The patient presents with swelling, erythema. The complaints affect the left lower leg. cp Context: resulted from an unknown cause. Onset: The symptoms/episode began/occurred gradually, and became worse today. 22:10 Associated signs and symptoms: Pertinent positives: swelling, warmth, Pertinent cp negatives fever. Patient reports chronic wound to left great toe that he goes to [facility] wound care clinic. Historical: - Allergies: 21:50 No Known Allergies; kd3 - Home Meds: 21:50 bumetanide 2 mg Oral tab 1 tab 2 times per day [Active]; glimepiride 1 mg Oral tab 1 kd3 tab once daily [Active]; carvedilol 25 mg oral tab 1 tab 2 times per day [Active]; Januvia 100 mg oral tab 1 tab once daily [Active]; lisinopril 40 mg Oral tab 1 tab once daily [Active]; spironolactone 50 mg Oral tab 1 tab 2 times per day [Active]; - Immunization history:: Adult Immunizations up to date. - Social history:: Smoking status: Patient denies any tobacco usage or history of. ROS: 22:15 Constitutional: Negative for fever. cp 22:15 Eyes: Negative for injury, pain, redness, and discharge. cp 22:15 ENT: Negative for drainage from ear(s), ear pain, sore throat, difficulty swallowing, difficulty handling secretions. 22:15 Cardiovascular: Negative for chest pain. 22:15 Respiratory: Negative for cough, shortness of breath, wheezing. 22:15 Abdomen/GI: Negative for abdominal pain, nausea, vomiting, and diarrhea. 22:15 Skin: Positive for erythema, of the left lower leg, chronic wound to left great toe. 22:15 Neuro: Negative for altered mental status, headache. 22:15 All other systems are negative. Exam: 22:20 Constitutional: The patient appears in no acute distress, alert, awake, non-toxic, well cp developed, well nourished, febrile. 22:20 Head/Face: Normocephalic, atraumatic. cp 22:20 Eyes: Periorbital structures: appear normal, Conjunctiva: normal, no exudate, no injection, Sclera: no appreciated abnormality, Lids and lashes: appear normal, bilaterally. 22:20 ENT: External ear(s): are unremarkable, Nose: is normal, Mouth: Lips: moist, Oral mucosa: moist, Posterior pharynx: Airway: no evidence of obstruction, patent. 22:20 Chest/axilla: Inspection: normal. 22:20 Cardiovascular: Rate: tachycardic, Rhythm: regular, JVD: is not appreciated. 22:20 Respiratory: the patient does not display signs of respiratory distress, Respirations: normal, no use of accessory muscles, no retractions, labored breathing, is not present, Breath sounds: are clear throughout, no decreased breath sounds, no stridor, no wheezing. 22:20 Abdomen/GI: Inspection: abdomen appears normal, Palpation: abdomen is soft and non-tender, in all quadrants. 22:20 Back: pain, is absent, ROM is normal. 22:20 Skin: open wound noted medial side of left great toe with minimal erythema, no drainage notes. Left lower leg with swelling, circumferential erythema. 22:20 Neuro: Orientation: to person, place \T\ time. Mentation: is normal, Motor: moves all fours, strength is normal. 22:55 ECG was reviewed by the Attending Physician. cp Vital Signs: 21:46 BP 97 / 62; Pulse 104; Resp 18; Temp 100.4(O); Pulse Ox 96% on R/A; Weight 79.38 kg; kd3 Height 5 ft. 8 in. (172.72 cm); Pain 9/10; 23:00 BP 112 / 61; Pulse 103; Resp 18; Pulse Ox 99% on R/A; eh3 23:30 Temp 98.4(O); eh3 23:30 Temp 98.4(O); eh3 06/26 01:42 BP 112 / 60; Pulse 86; Resp 19; Pulse Ox 100% ; ll3 06/25 21:46 Body Mass Index 26.61 (79.38 kg, 172.72 cm) kd3 MDM: 06/25 21:53 Patient medically screened. cp 23:00 Differential diagnosis: DVT, cellulitis, abscess, sepsis, osteomyelitis. cp 23:50 Data reviewed: vital signs, nurses notes, lab test result(s), EKG, radiologic studies, cp plain films, ultrasound. 23:50 Consideration of Admission/Observation Patient was admitted/placed on observation. cp Management of patient was discussed with the following: Hospitalist: Anselmo Amaral NP. 23:52 Care significantly affected by the following chronic conditions: Diabetes, Chronic cp Kidney Disease. 23:52 Counseling: I had a detailed discussion with the patient and/or guardian regarding: the cp historical points, exam findings, and any diagnostic results supporting the discharge/admit diagnosis, lab results, radiology results, the need for further work-up and treatment in the hospital. 06/25 22:07 Order name: Basic Metabolic Panel; Complete Time: 23:22 cp 06/25 23:23 Interpretation: Normal except: K 5.2; CL 109; CO2 19; GLUC 140; BUN 57; CRE 4.38; GFR cp 17; CA 8.1. 06/25 22:07 Order name: CBC with Diff; Complete Time: 23:42 cp 06/25 23:23 Interpretation: Normal except: WBC 18.40; RBC 2.83; HGB 8.7; HCT 25.5; PLT 148; FARHAN% cp 93.3; LYM% 4.0; MN% 2.2; NEUT A 17.1. 06/25 22:07 Order name: Magnesium; Complete Time: 23:22 cp 06/25 22:07 Order name: NT PRO-BNP; Complete Time: 23:22 cp 06/25 23:23 Interpretation: Abnormal: NT PRO-BNP 97352. 06/25 22:07 Order name: PT-INR; Complete Time: 23:22 cp 06/25 22:07 Order name: Lactate w/ 2H reflex if indic.; Complete Time: 23:22 cp 06/25 22:07 Order name: XRAY Chest (1 view) cp 06/25 22:07 Order name: Blood Culture Adult (2) cp 06/25 22:07 Order name: Procalcitonin; Complete Time: 23:35 cp 06/25 23:35 Interpretation: Abnormal: Procalcitonin 33.59. cp 06/25 22:07 Order name: US Extremity Venous Unilateral Ltd cp 06/25 22:07 Order name: COVID-19/FLU A+B; Complete Time: 23:35 cp 06/25 22:07 Order name: XRAY Foot LEFT 2 View cp 06/25 22:31 Order name: Manual Differential; Complete Time: 23:42 EDMS 06/26 01:56 Interpretation: Normal except: BANDS [F] 18; LYM 5. cp 06/26 01:55 Order name: Glucose, Ancillary Testing; Complete Time: 01:56 EDMS 06/25 22:07 Order name: EKG; Complete Time: 22:08 cp 06/25 22:07 Order name: Cardiac monitoring; Complete Time: 22:57 cp 06/25 22:07 Order name: EKG - Nurse/Tech; Complete Time: 22:57 cp 06/25 22:07 Order name: IV Saline Lock; Complete Time: 22:21 cp 06/25 22:07 Order name: Labs collected and sent; Complete Time: 22:21 cp 06/25 22:07 Order name: O2 Per Protocol; Complete Time: 22:21 cp 06/25 22:07 Order name: O2 Sat Monitoring; Complete Time: 22:57 cp 06/26 00:04 Order name: NPO; Complete Time: 00:15 la1 EC:55 Rate is 103 beats/min. Rhythm is regular. MN interval is normal. QRS interval is cp normal. QT interval is normal. T waves are Inverted in leads aVL, aVR. Interpreted by me. Reviewed by me. Administered Medications: 22:40 Drug: Tylenol 1000 mg Route: PO; [facility] 23:30 Follow up: Temp 98.4 Oral [facility] 23:45 Drug: Albuterol 2.5 mg Route: Inhalation; [facility] 23:45 Drug: Cefepime 1 grams Route: IVPB; Rate: 200 ml/hr; Infused Over: 30 mins; Site: left [facility] antecubital; 06/26 00:15 Follow up: Response: No adverse reaction; IV Status: Completed infusion; IV Intake: eh3 100ml 06/25 23:55 Drug: D50W 50 ml Route: IVP; Site: left antecubital; [facility] 06/26 01:51 Follow up: Response: No adverse reaction [facility] 00:05 Drug: vancoMYCIN 1 grams Route: IVPB; Infused Over: 2 hrs; Site: right antecubital; eh3 01:53 Follow up: Response: No adverse reaction; IV Status: Completed infusion; IV Intake: ll3 250ml 00:20 Drug: Insulin Regular Human 5 units {Co-Signature: ll3 (Tripp Coleman RN).} Route: IVP; kl Site: right antecubital; 01:51 Follow up: Response: No adverse reaction ll3 00:44 Drug: NS 0.9% 1000 ml Route: IV; Rate: 1 bolus; Site: left antecubital; lg3 01:51 Follow up: Response: No adverse reaction; IV Status: Completed infusion; IV Intake: ll3 1000ml 01:16 Drug: Albuterol 2.5 mg Route: Inhalation; ll3 01:36 Drug: Albuterol 2.5 mg Route: Inhalation; ll3 01:51 Follow up: Response: No adverse reaction ll3 Disposition: 02:32 Co-signature as Attending Physician, Henry Martinez MD I reviewed the patient's care rt provided by the Advanced Practice Provider and agree with the diagnosis and treatment plan. Disposition Summary: 06/26/22 00:05 Hospitalization Ordered Hospitalization Status: Inpatient Admission cp Provider: Thanh Gallardo cp Location: Telemetry/MedSurg (Inpatient) cp Condition: Stable cp Problem: new cp Symptoms: have improved cp Bed/Room Type: Standard cp Room Assignment: 423(06/26/22 00:35) ll3 Diagnosis - Cellulitis of left lower limb cp - Open wound of toe without damage to nail - left great toe cp - Severe sepsis without septic shock cp Forms: - Medication Reconciliation Form cp - SBAR form cp Signatures: Dispatcher [employer] EDMS Morena Aguilera RN RN Anselmo Clark, [employer]-Cla1 Vitaliy Stevenson PA PA cp Chaya Shelton, RN SABRINA breen3 Tripp Coleman RN RN ll3 Darline Blair RN RN kd3 Marta Iglesias RN RN 3 Henry Martinez MD MD rt Tripp Coleman RN ll3 Corrections: (The following items were deleted from the chart) 06/25 22:08 22:08 This 31 yrs old Male presents to ER via Ambulatory with complaints of Wound cp Infection. cp 02/02 00:35 00:05 cp ll3
--- NOTE | 2022-06-26 00:06 | ER ---
Nurse's Notes [facility] Name: Jared Mcintyre Age: 31 yrs Sex: Male : 1990 Arrival Date: 06/25/2022 Time: 21:38 Bed 4 Private MD: Diagnosis: Cellulitis of left lower limb;Open wound of toe without damage to nail-left great toe;Severe sepsis without septic shock Presentation: 06/25 21:48 Chief complaint: Patient states: I think my leg is infected. I have an open wound on my kd3 left big toe. It just started as a blister and it just got worse. I have had it since about december. I am diabetic and I go to wound care here. Coronavirus screen: Vaccine status: Patient reports being unvaccinated. Ebola Screen: No symptoms or risks identified at this time. Initial Sepsis Screen: Does the patient meet any 2 criteria? HR > 90 bpm. No. Patient's initial sepsis screen is negative. Does the patient have a suspected source of infection? Yes: Skin breakdown/wound. Initial Sepsis Screen: Does the patient meet any 2 criteria?. Risk Assessment: Do you want to hurt yourself or someone else? Patient reports no desire to harm self or others. Onset of symptoms was June 25, 2022. 21:48 Method Of Arrival: Ambulatory kd3 21:48 Acuity: SIMONE 3 kd3 Triage Assessment: 21:50 General: Appears uncomfortable, Behavior is calm, cooperative. Pain: Complains of pain kd3 in left leg. Historical: - Allergies: 21:50 No Known Allergies; kd3 - Home Meds: 21:50 bumetanide 2 mg Oral tab 1 tab 2 times per day [Active]; glimepiride 1 mg Oral tab 1 kd3 tab once daily [Active]; carvedilol 25 mg oral tab 1 tab 2 times per day [Active]; Januvia 100 mg oral tab 1 tab once daily [Active]; lisinopril 40 mg Oral tab 1 tab once daily [Active]; spironolactone 50 mg Oral tab 1 tab 2 times per day [Active]; - Immunization history:: Adult Immunizations up to date. - Social history:: Smoking status: Patient denies any tobacco usage or history of. Screenin:00 [facility] ED Fall Risk Assessment (Adult) History of falling in the last 3 months, eh3 including since admission No falls in past 3 months (0 pts) Confusion or Disorientation No (0 pts) Intoxicated or Sedated No (0 pts) Impaired Gait Yes (1 pt) Mobility Assist Device Used No (0 pt) Altered Elimination No (0 pt) Score/Fall Risk Level 0 - 2 = Low Risk. Abuse screen: Denies threats or abuse. Denies injuries from another. Nutritional screening: No deficits noted. Tuberculosis screening: No symptoms or risk factors identified. Assessment: 22:00 General: Appears in no apparent distress. uncomfortable, Behavior is calm, cooperative, eh3 appropriate for age. Pain: Complains of pain in left leg. Neuro: Level of Consciousness is awake, alert, obeys commands, Oriented to person, place, time, situation. Cardiovascular: Capillary refill < 3 seconds Patient's skin is warm and dry. Rhythm is sinus tachycardia. Respiratory: Airway is patent Respiratory effort is even, unlabored, Respiratory pattern is regular, symmetrical. GI: No signs and/or symptoms were reported involving the gastrointestinal system. Abdomen is round non-distended. : No signs and/or symptoms were reported regarding the genitourinary system. EENT: No signs and/or symptoms were reported regarding the EENT system. Derm: Wound noted left first toe. Musculoskeletal: Circulation, motion, and sensation intact. Range of motion: intact in all extremities. 23:00 Reassessment: Patient appears in no apparent distress at this time. Patient and/or eh3 family updated on plan of care and expected duration. Pain level reassessed. Patient is alert, oriented x 3, equal unlabored respirations, skin warm/dry/pink. Vital Signs: 21:46 BP 97 / 62; Pulse 104; Resp 18; Temp 100.4(O); Pulse Ox 96% on R/A; Weight 79.38 kg; kd3 Height 5 ft. 8 in. (172.72 cm); Pain 9/10; 23:00 BP 112 / 61; Pulse 103; Resp 18; Pulse Ox 99% on R/A; eh3 23:30 Temp 98.4(O); eh3 23:30 Temp 98.4(O); eh3 06/26 01:42 BP 112 / 60; Pulse 86; Resp 19; Pulse Ox 100% ; 3 06/25 21:46 Body Mass Index 26.61 (79.38 kg, 172.72 cm) kd3 ED Course: 02 21:38 Patient arrived in ED. ja2 21:46 Vitaliy Stevenson PA is PHCP. cp 21:46 Henry Martinez MD is Attending Physician. cp 21:50 Triage completed. kd3 21:50 Arm band placed on left wrist. kd3 22:00 Patient has correct armband on for positive identification. Placed in gown. Bed in low eh3 position. Call light in reach. Side rails up X2. Adult w/ patient. Client placed on continuous cardiac and pulse oximetry monitoring. NIBP monitoring applied. Door closed. Noise minimized. Warm blanket given. 22:03 Marta Iglesias, SABRINA is Primary Nurse. eh3 22:30 Inserted saline lock: 20 gauge in right antecubital area, using aseptic technique. eh3 Blood collected. 22:47 XRAY Chest (1 view) In Process Unspecified. EDMS 22:47 XRAY Foot LEFT 2 View In Process Unspecified. EDMS 23:23 US Extremity Venous Unilateral Ltd In Process Unspecified. EDMS 23:38 Notified Nurse Practitioner and/or Physician Seismograph Operator of a critical lab result(s), kl bands 18%. 06/26 00:04 Thanh Gallardo MD is Hospitalizing Provider. cp 01:43 No provider procedures requiring assistance completed. ll3 02:22 Patient admitted, IV remains in place. intact, No redness/swelling at site. lg3 Administered Medications: 06/25 22:40 Drug: Tylenol 1000 mg Route: PO; eh3 23:30 Follow up: Temp 98.4 Oral 3 23:45 Drug: Albuterol 2.5 mg Route: Inhalation; eh3 23:45 Drug: Cefepime 1 grams Route: IVPB; Rate: 200 ml/hr; Infused Over: 30 mins; Site: left 3 antecubital; 06/26 00:15 Follow up: Response: No adverse reaction; IV Status: Completed infusion; IV Intake: eh3 100ml 06/25 23:55 Drug: D50W 50 ml Route: IVP; Site: left antecubital; 3 06/26 01:51 Follow up: Response: No adverse reaction 3 00:05 Drug: vancoMYCIN 1 grams Route: IVPB; Infused Over: 2 hrs; Site: right antecubital; eh3 01:53 Follow up: Response: No adverse reaction; IV Status: Completed infusion; IV Intake: ll3 250ml 00:20 Drug: Insulin Regular Human 5 units {Co-Signature: [email or web address] (Tripp Coleman RN).} Route: IVP; Site: right antecubital; 01:51 Follow up: Response: No adverse reaction ll3 00:44 Drug: NS 0.9% 1000 ml Route: IV; Rate: 1 bolus; Site: left antecubital; lg3 01:51 Follow up: Response: No adverse reaction; IV Status: Completed infusion; IV Intake: ll3 1000ml 01:16 Drug: Albuterol 2.5 mg Route: Inhalation; ll3 01:36 Drug: Albuterol 2.5 mg Route: Inhalation; ll3 01:51 Follow up: Response: No adverse reaction ll3 Medication: 01:43 VIS not applicable for this client. ll3 Intake: 00:15 IV: 100ml; Total: 100ml. eh3 01:51 IV: 1000ml; Total: 1100ml. ll3 01:53 IV: 250ml; Total: 1350ml. ll3 Outcome: 00:05 Decision to Hospitalize by Provider. cp 02:21 Admitted to Med/surg accompanied by nurse, via wheelchair, room 423, Report called to Carolann Decker 02:21 Condition: stable 02:21 Instructed on the need for admit, Demonstrated understanding of instructions. 02:22 Patient left the ED. lg3 Signatures: Dispatcher [employer] EDMorena Soria RN RN kl Page, Corey, PA PA cp Gibson, Lacie RN RN 3 Stephanie Medina Lynsea, RN RN ll3 Darline Blair RN RN kd3 Marta Iglesias RN RN eh3 Tripp black3 Corrections: (The following items were deleted from the chart) 01:02 02 22:00 Cardiovascular: Capillary refill < 3 seconds Patient's skin is warm and eh3 dry. eh3
[2022-06-26] MEDS ORDERED: INSULIN -REGULAR HUMAN 50 UNIT/0.5 ML ML ONE (00:18)
[2022-06-26] MEDS ORDERED: D10W 250 ML IV ONE (00:19)
[2022-06-26] MEDS ORDERED: NA CHLORIDE 0.9% 1,000 ML ONE (00:45)
--- NOTE | 2022-06-26 00:57 | P.HP ---
Certification for Inpatient Patient admitted to: Inpatient With expected LOS: >2 Midnights Patient will require the following post-hospital care: None Practitioner: I am a practitioner with admitting privileges, knowledge of patient current condition, hospital course, and medical plan of care. Services: Services provided to patient in accordance with Admission requirements found in Title 42 Section 412.3 of the Code of Federal Regulations <Anselmo Amaral - Last Filed: 06/26/22 00:51> Patient History Date of Service: 06/26/22 Reason for admission: Severe sepsis, left lower extremity cellulitis History of Present Illness: 31-year-old male with history of diabetes mellitus type 2insulin-dependent, CKD presents to the emergency department with fever, concern for infection of his left lower extremity, diabetic ulceration. SIRS criteria present including tachycardia, leukocytosis with white blood cell count of 18, his labs also demonstrated failure with mild hyperkalemia, creatinine 4.38, GFR 17 BUN 57 potassium 5.2 bicarb 19 procalcitonin 33.59 BNP 11,745 18% bands. Patient meets criteria for severe sepsis currently he is given vancomycin/cefepime in the emergency department. Will admit for further evaluation and management of severe sepsis, left lower extremity cellulitis, left diabetic foot wound. - Past Medical/Surgical History -: Diabetes mellitus type 2insulin-dependent -: CKD -: Retinal detachment Psychosocial/ Personal History: Patient works at [employer], lives at home with sister, niece - Family History Father -: Diabetes Mother -: Diabetes - Social History Smoking Status: Never smoker Alcohol use: No CD- Drugs: No Caffeine use: Yes Place of Residence: Home <Anselmo Amaral - Last Filed: 06/26/22 00:51> Date of Service: 06/26/22 <Thanh Gallardo - Last Filed: 06/26/22 18:28> Allergies No Known Allergies Allergy (Verified 01/20/22 16:17) Home Medications: Bumetanide 2 mg PO BID 01/20/22 Carvedilol [Coreg] 25 mg PO BID 01/20/22 Glimepiride 1 mg PO DAILY 01/20/22 Lisinopril [Zestril] 40 mg PO DAILY 01/20/22 Sitagliptin Phosphate [Januvia] 100 mg PO DAILY 01/20/22 Spironolactone 50 mg PO BID 01/20/22 Review of Systems General: Fever, Chills Integumentary: As per HPI <Anselmo Amaral - Last Filed: 06/26/22 00:51> Physical Examination - Physical Exam General: Alert, In no apparent distress, Oriented x3 HEENT: Atraumatic, PERRLA, Mucous membr. moist/pink, EOMI, Sclerae nonicteric Neck: Supple, 2+ carotid pulse no bruit, No LAD, Without JVD or thyroid abnormality Respiratory: Clear to auscultation bilaterally, Normal air movement Cardiovascular: Regular rate/rhythm, Normal S1 S2 Capillary refill: <2 Seconds Gastrointestinal: Normal bowel sounds, No tenderness Musculoskeletal: No tenderness Integumentary: No rashes, Tenderness/swelling, Erythema, Warmth Neurological: Normal gait, Normal speech, Normal strength at 5/5 x4 extr, Normal tone, Normal affect Lymphatics: No axilla or inguinal lymphadenopathy - Studies Laboratory Data (last 24 hrs) 06/25/22 22:15: PT 14.4 H, INR 1.31 06/25/22 22:15: WBC 18.40 H, Hgb 8.7 L, Hct 25.5 L, Plt Count 148 L 06/25/22 22:15: Sodium 137, Potassium 5.2 H, BUN 57 H, Creatinine 4.38 H, Glucose 140 H, Magnesium 1.7 <Anselmo Amaral - Last Filed: 06/26/22 00:51> - Studies Laboratory Data (last 24 hrs) 06/25/22 22:15: PT 14.4 H, INR 1.31 06/25/22 22:15: WBC 18.40 H, Hgb 8.7 L, Hct 25.5 L, Plt Count 148 L 06/25/22 22:15: Sodium 137, Potassium 5.2 H, BUN 57 H, Creatinine 4.38 H, Glucose 140 H, Magnesium 1.7 <Thanh Gallardo - Last Filed: 06/26/22 18:28> Assessment and Plan - Plan Assessment: Severe sepsis secondary to left lower extremity cellulitis, left great toe diabetic ulceration Acute renal failure with hyperkalemia Diabetes mellitus type 2insulin-dependent Anemia of chronic disease Plan: Severe sepsis secondary to left lower extremity cellulitis, left great toe diabetic ulceration: Blood cultures obtained, criteria present including tachycardia, leukocytosis. Organ dysfunction with acute renal failure. Continue IV fluids, IV antibiotics with vancomycin, cefepime, surgical consult in place. MRI of left foot ordered to evaluate for osteomyelitis. Negative for DVT. Acute renal failure with hyperkalemia: Treated for mild hyperkalemia in ED, continue gentle IV fluids, nephrology consulted. Unsure of patient's baseline renal function as there are no labs available for comparison. Appreciate further input from nephrology. Diabetes mellitus type 2insulin-dependent: ACHS Accu-Chek, sliding scale insulin, A1c in the morning. Anemia of chronic disease: Additional labs added for evaluation of anemia. DVT PPX: Heparin Code status:full Discharge Plan: Home Plan to discharge in: 72 Hours - Advance Directives Does patient have a Living Will: No Does patient have a Durable POA for Healthcare: No - Code Status/Comfort Care Code Status Assessed: Yes (Full code) Critical Care: No Time Spent Managing Pts Care (In Minutes): 70 <Anselmo Amaral - Last Filed: 06/26/22 00:51> Physician Review: Patient Assessed, Agree with Above Assessment and Plan <Thanh Gallardo - Last Filed: 06/26/22 18:28>
[2022-06-26] MEDS ORDERED: ALBUTEROL 2.5 MG/3 ML NEB SOL ONE (01:19)
[2022-06-26] MEDS ORDERED: ONDANSETRON 4 MG/2 ML VIAL IV PRN (02:33)
[2022-06-26] MEDS ORDERED: VANCOMYCIN 1.5 GM in NA CHLORIDE 0.9% 500 ML IVPB SCH (03:00)
[2022-06-26 03:02] VITALS: BMI 26.2
[2022-06-26] MEDS: NA CHLORIDE 0.9% 1,000 ML IV SCH ×3 (03:09→19:10)
[2022-06-26 04:42] LABS: Absolute Lymphocytes (CBC) 0.8 K/uL (0.7-4.9); Hematocrit 23.1 % (39.6-49.0); Lymphocytes % 5.3 % (15.3-44.8); MCV 90.8 fL (80-100); MPV 9.5 fL (7.6-11.3); RBC Red Blood Cell Count 2.54 M/uL (4.33-5.43)
[2022-06-26 05:18] LABS: Ferritin 764.9 ng/mL (26-388)
[2022-06-26 05:37] LABS: Potassium 5.6 mmol/L (3.5-5.1)
[2022-06-26] MEDS ORDERED: FUROSEMIDE 20 MG/ 2ML VIAL IV ONE (05:54)
[2022-06-26] MEDS ORDERED: INSULIN -REGULAR HUMAN 50 UNIT/0.5 ML ML IV ONE (05:54)
[2022-06-26] MEDS ORDERED: GLUCAGON 1 MG/VIAL IM PRN ×2 (05:54→11:40)
[2022-06-26] MEDS ORDERED: D50W 25 GM/50 ML SYRINGE IV PRN (05:54)
[2022-06-26] MEDS ORDERED: CALCIUM GLUC 10% INJ 4.65 MEQ in NA CHLORIDE 0.9% 100 ML IV ONE ×2 (05:56→07:00)
[2022-06-26] MEDS ORDERED: ALBUTEROL 2.5 MG/3 ML NEB SOL NEB ONE (05:57)
[2022-06-26] MEDS ORDERED: D10W 125 ML IV PRN (06:00)
[2022-06-26] MEDS ORDERED: INSULIN -REGULAR HUMAN 50 UNIT/0.5 ML ML SQ SCH ×2 (06:00→07:30)
[2022-06-26] MEDS ORDERED: D10W 250 ML IV SCH (06:00)
[2022-06-26] MEDS ORDERED: CALCIUM GLUCONATE 1 GM IVPB 0 GM/0 ML BAG IV ONE (06:11)
--- NOTE | 2022-06-26 07:33 | RAD REPORT ---
EXAM DESCRIPTION: US - Renal Ultrasound-Complete - 06/26/2022 5:32 am CLINICAL HISTORY: arf COMPARISON: No comparisons FINDINGS: The right kidney measures 12.3 x 6.6 x 5.8 cm. The left kidney measures 10.6 x 5.4 x 4.6 cm. Renal cortical thickness normal for each kidney. There is increased cortical echogenicity consist ent with medical renal disease. No hydronephrosis of either kidney. An 18 millimeter cyst is present lower pole right kidney. A 2.2 cm cyst is present upper pole of the left kidney. There is a very smal l subcortical cyst mid left kidney 5 mm in size. Bladder is mostly contracted which accentuates wall thickness. Bladder evaluation is limited on this examination. IMPRESSION: No hydronephrosis or suspicious renal mass. Bilateral increased renal cortical echogenicity consistent with underlying medical renal disease. Bladder perkins are accentuated by a mostly contracted state and cannot be accurately assessed.
[2022-06-26] MEDS ORDERED: CALCIUM GLUCONATE 1 GM IVPB 1 GM/50 ML BAG IV ONE (08:00)
[2022-06-26] MEDS: CEFEPIME 1 GM in NA CHLORIDE 0.9% 100 ML IV SCH (08:26)
--- NOTE | 2022-06-26 08:41 | RAD REPORT ---
EXAM DESCRIPTION: MRI - Foot Left Wo Cont - 06/26/2022 7:58 am CLINICAL HISTORY: R/O osteomyelitis, sepsis, chronic soft tissue wound plantar surface first digit COMPARISON: Foot Left 2 View dated 06/25/2022 TECHNIQUE: Multiplanar imaging of the left foot performed using T1 weighted, T1 fat saturation, T2 S TIR and T2 fat saturation sequencing. FINDINGS: Edema signal is present in the soft tissues plantar surface of the first toe for the dista l phalanx and IP joint level. No gross bone destructive changes are identifiable. No abscess or drain able fluid collection. Signal is poor around the first toe distal phalanx. This limits evaluation. Marrow signal does appear hypointense in the first distal phalanx and first proximal phalanx head. Proximal portion of the fir st proximal phalanx shows normal signal pattern. The second-fifth toes and the metatarsals show veronica l signal pattern. No suspicious finding in the midfoot. IMPRESSION: Signal abnormality in the first distal phalanx and first proximal phalanx head is suspic ious but not definitive for osteomyelitis. No bone destruction seen. Soft tissue wound seen plantar surface first toe without abscess or drainab le fluid collection.
[2022-06-26] MEDS ORDERED: VANCOMYCIN 1 GM in NA CHLORIDE 0.9% 250 ML IVPB SCH (09:00)
[2022-06-26] MEDS ORDERED: VANCOMYCIN 500 MG in NA CHLORIDE 0.9% 100 ML IVPB ONE (09:00)
[2022-06-26] MEDS: ACETAMINOPHEN 500 MG TAB PO PRN ×2 (09:01→22:33)
--- NOTE | 2022-06-26 09:10 | P.CNS ---
Date of Consult: 06/26/22 Reason for Consult: EDOUARD/ Hyperkalemia Requesting Physician: Thanh Gallardo Chief Complaint: Severe sepsis, left lower extremity cellulitis History of Present Illness: 31-year-old male with history of diabetes mellitus type 2insulin-dependent, CKD presents to the emergency department with fever, concern for infection of his left lower extremity, diabetic ulceration. SIRS criteria present including tachycardia, leukocytosis with white blood cell count of 18, his labs also demonstrated failure with mild hyperkalemia, creatinine 4.38, GFR 17 BUN 57 potassium 5.2 bicarb 19 procalcitonin 33.59 BNP 11,745 18% bands. Patient meets criteria for severe sepsis currently he is given vancomycin/cefepime in the emergency department. Will admit for further evaluation and management of severe sepsis, left lower extremity cellulitis, left diabetic foot wound. Allergies No Known Allergies Allergy (Verified 01/20/22 16:17) Home medications list reviewed: Yes Home Medications: Bumetanide 2 mg PO BID 01/20/22 Carvedilol [Coreg] 25 mg PO BID 01/20/22 Glimepiride 1 mg PO DAILY 01/20/22 Lisinopril [Zestril] 40 mg PO DAILY 01/20/22 Sitagliptin Phosphate [Januvia] 100 mg PO DAILY 01/20/22 Spironolactone 50 mg PO BID 01/20/22 - Past Medical/Surgical History Diabetic: Yes -: Diabetes mellitus type 2insulin-dependent -: CKD III/ Nephrotic Syndrome followed by Dr. Moreno -: Retinal detachment Psychosocial/ Personal History: Patient works at [employer], lives at home with sister, niece - Family History Father Medical History: Diabetes Mother Medical History: Diabetes - Social History Alcohol use: No CD- Drugs: No Caffeine use: Yes Place of Residence: Home Review of Systems 10-point ROS is otherwise unremarkable General: Weakness, Malaise Physical Examination Temp Pulse Resp BP Pulse Ox 100.1 F 95 H 18 126/60 98 06/26/22 09:01 06/26/22 08:00 06/26/22 08:00 06/26/22 08:00 06/26/22 08:00 General: Oriented x3, Cooperative HEENT: Atraumatic Neck: Supple Respiratory: Clear to auscultation bilaterally Cardiovascular: Regular rate/rhythm, Edema Gastrointestinal: Soft and benign, Non-distended Musculoskeletal: No clubbing, No contractures Integumentary: No cyanosis, Diabetic ulcer Neurological: Normal speech Laboratory Data (last 24 hrs) 06/25/22 22:15: PT 14.4 H, INR 1.31 06/25/22 22:15: WBC 18.40 H, Hgb 8.7 L, Hct 25.5 L, Plt Count 148 L 06/25/22 22:15: Sodium 137, Potassium 5.2 H, BUN 57 H, Creatinine 4.38 H, Glucose 140 H, Magnesium 1.7 Imagings Data: EXAM DESCRIPTION: US - Renal Ultrasound-Complete - 06/26/2022 5:32 am CLINICAL HISTORY: arf COMPARISON: No comparisons FINDINGS: The right kidney measures 12.3 x 6.6 x 5.8 cm. The left kidney measures 10.6 x 5.4 x 4.6 cm. Renal cortical thickness normal for each kidney. There is increased cortical echogenicity consistent with medical renal disease. No hydronephrosis of either kidney. An 18 millimeter cyst is present lower pole right kidney. A 2.2 cm cyst is present upper pole of the left kidney. There is a very small subcortical cyst mid left kidney 5 mm in size. Bladder is mostly contracted which accentuates wall thickness. Bladder evaluation is limited on this examination. IMPRESSION: No hydronephrosis or suspicious renal mass. Bilateral increased renal cortical echogenicity consistent with underlying medical renal disease. Bladder perkins are accentuated by a mostly contracted state and cannot be accu rately assessed. EXAM DESCRIPTION: MRI - Foot Left Wo Cont - 06/26/2022 7:58 am CLINICAL HISTORY: R/O osteomyelitis, sepsis, chronic soft tissue wound plantar surface first digit COMPARISON: Foot Left 2 View dated 06/25/2022 TECHNIQUE: Multiplanar imaging of the left foot performed using T1 weighted, T1 fat saturation, T2 STIR and T2 fat saturation sequencing. FINDINGS: Edema signal is present in the soft tissues plantar surface of the first toe for the distal phalanx and IP joint level. No gross bone destructive changes are identifiable. No abscess or drainable fluid collection. Signal is poor around the first toe distal phalanx. This limits evaluation. Marrow signal does appear hypointense in the first distal phalanx and first proximal phalanx head. Proximal portion of the first proximal phalanx shows normal signal pattern. The second-fifth toes and the metatarsals show normal signal pattern. No suspicious finding in the midfoot. IMPRESSION: Signal abnormality in the first distal phalanx and first proximal phalanx head is suspicious but not definitive for osteomyelitis. No bone destruction seen. Soft tissue wound seen plantar surface first toe without abscess or drainable fluid collection. Conclusions/Impression: EDOUARD in the setting of sepsis/ hypotension CKD III with nephrotic syndrome -No NSAIDs -Continue IVF with NS Hyperkalemia -Lokelma X1 Acidosis -Start oral bicarb DM II with CKD A1C <3 -RISS Anemia in chronic illness Iron Deficiency 9.7% -Retacrit X1 -Consider iron supplementation Sepsis/ Septic Shock DM foot ulcer Left Toe Osteomyelitis -Continue Abx -Renal dose vancomycin -Follow up with Dr. Galeana Case reviewed with hospitalist team Thank you kindly for the consultation
[2022-06-26] MEDS ORDERED: EPOETIN ALFA-EPBX 10,000 UNIT/ML VIAL SQ ONE (09:30)
[2022-06-26] MEDS ORDERED: SODIUM ZIRCONIUM CYCLOSILICATE 10 GM/PKT PO ONE (09:30)
--- NOTE | 2022-06-26 10:53 | P.CNS ---
Date of Consult: 06/26/22 Reason for consult: Lower extremity infection History of present illness: Patient is a 31-year-old gentleman with type 2 diabetes and a wound on his left great toe that I been following in the wound healing center. I saw him in wound clinic 2 weeks ago. He came to the emergency room yesterday with fever and swelling. He was admitted with cellulitis and met sepsis criteria. I was consulted. Patient denies purulent discharge. Review of systems: Otherwise unremarkable Past medical history: Diabetes type 2 and chronic kidney disease Past surgical history: None Allergies: None Social history: Patient does not smoke or drink alcohol Family history: Diabetes Vital signs: Stable, afebrile Physical exam: Awake, Alert and oriented x3 Head and neck exam: No Masses Chest: Clear Heart: S1-S2 Abdomen:Soft Extremity: Left leg and foot are swollen with erythema and warmth. Left great toe has a large callus removed at the bedside with a 1 cm open wound. Puises are 2 and = bilaterally Neuro: non-focal Diagnostic data: MRI is consistent with osteomyelitis. Leukocytosis and hyperkalemia Assessment: Osteomyelitis left great toe with cellulitis Plan/recommendation: IV antibiotics for 6 weeks, PICC line & Medihoney. Follow- up patient in wound center upon discharge. CC:
[2022-06-26] MEDS: MEDIHONEY 44 ML TOPICAL TUBE TOP SCH (11:21)
[2022-06-26] MEDS: SODIUM BICARB 325 MG TAB PO SCH ×2 (11:27→16:20)
[2022-06-26] MEDS: INSULIN -REGULAR HUMAN 50 UNIT/0.5 ML ML SQ SCH ×3 (11:30→20:43)
[2022-06-26] MEDS ORDERED: D10W 250 ML BAG IV PRN (11:49)
--- NOTE | 2022-06-26 13:33 | RAD REPORT ---
EXAM DESCRIPTION: RAD - Chest Single View - 06/25/2022 10:45 pm CLINICAL HISTORY: 31 years Male, leg swelling TECHNIQUE: 1 view (Single frontal view of the chest) COMPARISON: None. FINDINGS: LINES AND TUBES: None. CARDIOVASCULAR STRUCTURES: Normal heart size. Mild increased interstitial opacities. LUNGS: No confluent areas of acute consolidation. PLEURA: No layering pleural effusions. No pneumothorax. BONES: No acute osseous abnormality of the thorax. IMPRESSION: 1. Mild increased interstitial opacities which may be secondary to edema versus bronch itis versus projectional artifact. Electronically signed by: Juanjo Quiroz MD 06/25/2022 10:56 PM [facility] Due to temporary technical issues with the PACS/Fluency reporting system, reports are being signed by the in house radiologists without review as a courtesy to insure prompt reporting. The interpreting radiologist is fully responsible for the content of the report.
--- NOTE | 2022-06-26 13:46 | RAD REPORT ---
EXAM DESCRIPTION: RAD - Foot Left 2 View - 06/25/2022 10:45 pm CLINICAL HISTORY: 31 years Male, chronic wound left great toe TECHNIQUE: 2 views COMPARISON: None. FINDINGS: BONES/JOINT: No acute fracture or dislocation. No destructive lytic or sclerotic changes. Joint spaces are well-preserved. SOFT TISSUES: Probable small ulcer along the plantar medial aspect of distal phalanx of great toe. N o radiopaque foreign body. IMPRESSION: 1. No acute osseous abnormality or evidence for osteomyelitis. 2. Probable small ulcer along the plantar medial aspect of distal phalanx of great toe. Electronically signed by: Juanjo Quiroz MD 06/25/2022 10:58 PM [employer]IDENTIAL SALES CONSULTANT Due to temporary technical issues with the PACS/Fluency reporting system, reports are being signed by the in house radiologists without review as a courtesy to insure prompt reporting. The interpreting radiologist is fully responsible for the content of the report.
--- NOTE | 2022-06-26 13:50 | RAD REPORT ---
EXAM DESCRIPTION: US - Extremity Venous Uni Ltd - 06/25/2022 11:17 pm CLINICAL HISTORY: 31 years Male Pain COMPARISON: None TECHNIQUE: Spectral analysis and color/grayscale sonographic images of the left leg were obtained ut ilizing a high-frequency linear array transducer supplemented with color Doppler, compression and aug mentation techniques. FINDINGS: Common femoral: normal Greater saphenous: normal Superficial femoral: normal Popliteal: normal Calf Veins: normal Prominent lymph nodes in left groin measuring up to 2.3 cm, could be reactive. IMPRESSION: 1. No sonographic evidence for left lower extremity deep venous thrombosis. Electronically signed by: Desmond Tai MD 06/25/2022 11:30 PM STERILE PROCESSING TECHNOLOGIST Due to temporary technical issues with the PACS/Fluency reporting system, reports are being signed by the in house radiologists without review as a courtesy to insure prompt reporting. The interpreting radiologist is fully responsible for the content of the report.
[2022-06-26 19:31] LABS: Potassium 5.1 mmol/L (3.5-5.1)
[2022-06-26] MEDS: HYDROCODONE/APAP 5/325 MG TAB PO PRN (20:43)
[2022-06-27] MEDS ORDERED: ONDANSETRON 4 MG/2 ML VIAL IV ONE (02:06)
[2022-06-27] MEDS: NA CHLORIDE 0.9% 1,000 ML IV SCH ×2 (05:13→09:02)
[2022-06-27] MEDS: HYDROCODONE/APAP 5/325 MG TAB PO PRN ×2 (05:24→21:08)
[2022-06-27 06:16] LABS: Absolute Lymphocytes (CBC) 0.8 K/uL (0.7-4.9); Hematocrit 21.8 % (39.6-49.0); MCV 91.2 fL (80-100); MPV 9.3 fL (7.6-11.3); RBC Red Blood Cell Count 2.39 M/uL (4.33-5.43)
[2022-06-27 06:44] LABS: UR CL RANDOM 13 mmol/L (25-40); UR SODIUM 25 mmol/L (27-287)
[2022-06-27 06:44] LABS: Potassium 4.9 mmol/L (3.5-5.1); Uric Acid 6.6 mg/dL (3.5-7.2)
[2022-06-27 07:00] LABS: Phosphorus 6.1 mg/dL (2.5-4.9)
[2022-06-27 07:06] LABS: UR PROTEIN 454.7 mg/dL (<11.9); Urine Protein/Creatinine Ratio 4.55 ratio (<0.15)
[2022-06-27] MEDS ORDERED: NA CHLORIDE 0.9% 100 ML ONE (07:08)
[2022-06-27 07:12] LABS: Specific Gravity 1.013 (1.005-1.030); Urine Bacteria <20 /HPF (<20); Urine Bilirubin NEGATIVE (Negative); Urine Blood 3+ (Negative); Urine Clarity Turbid (Clear); Urine Color Light-Yellow (Yellow); Urine Glucose 2+ (Negative); Urine Mucus Slight /HPF (None Seen); Urine Protein 3+ (Negative); Urine Urobilinogen Normal (Normal)
[2022-06-27] MEDS ORDERED: CEFEPIME 1 GM/VIAL ONE (07:24)
[2022-06-27] MEDS: INSULIN -REGULAR HUMAN 50 UNIT/0.5 ML ML SQ SCH ×4 (07:30→21:00)
[2022-06-27 07:34] LABS: Hepatitis B Core Ab, Total Nonreactive (Nonreactive); Hepatitis B Surface Ab - Quant < 3.10 mIU/mL (<8.0); Hepatitis B surface AG Interp. Nonreactive (Nonreactive); Hepatitis C Virus Ab Nonreactive (Nonreactive)
[2022-06-27] MEDS: CEFEPIME 1 GM in NA CHLORIDE 0.9% 100 ML IV SCH (07:34)
[2022-06-27] MEDS: SODIUM BICARB 325 MG TAB PO SCH ×4 (07:34→21:09)
[2022-06-27] MEDS: HEPARIN 5000 UNIT/ML 1 ML VIAL SQ SCH ×2 (07:35→21:00)
[2022-06-27] MEDS: MEDIHONEY 44 ML TOPICAL TUBE TOP SCH (07:36)
[2022-06-27 07:37] LABS: Platelet Estimate ADEQ; Platelets, Giant FEW; White Blood Cell Scan OK (OK)
[2022-06-27 07:54] LABS: Blood Morphology Comment NOT SEEN (NOT SEEN)
[2022-06-27] MEDS: VANCOMYCIN 1.5 GM in NA CHLORIDE 0.9% 500 ML IVPB SCH (12:33)
--- NOTE | 2022-06-27 13:50 | ECHO ---
HEIGHT: 5 ft 8 in WEIGHT: 172 lb 9 oz DATE OF STUDY: 06/27/[address]: Thanh Gallardo MD 2-DIMENSIONAL: YES M.MODE: YES DOPPLER: YES COLOR FLOW: YES TDS: PORTABLE: YES DEFINITY: BUBBLE STUDY: DIAGNOSIS: CONGESTIVE HEART FAILURE CARDIAC HISTORY: CATHERIZATION: SURGERY: PROSTHETIC VALVE: PACEMAKER: MEASUREMENTS (cm) DIASTOLIC (NORMALS) SYSTOLIC (NORMALS) IVSd 1.2 (0.6-1.2) LA Diam 4.2 (1.9-4.0) LVEF 60% LVIDd 4.9 (3.5-5.7) LVIDs 3.6 (2.0-3.5) %FS 26% LVPWd 1.4 (0.6-1.2) Ao Diam 2.9 (2.0-3.7) 2 DIMENSIONAL ASSESSMENT: RIGHT ATRIUM: NORMAL LEFT ATRIUM: ENLARGED RIGHT VENTRICLE: NORMAL LEFT VENTRICLE: NORMAL TRICUSPID VALVE: NORMAL MITRAL VALVE: MILD MITRAL REGURGITATION PULMONIC VALVE: MILD PULMONIC INSUFFICIENCY AORTIC VALVE: NORMAL PERICARDIAL EFFUSION: NONE AORTIC ROOT: NORMAL LEFT VENTRICULAR WALL MOTION: NORMAL DOPPLER/COLOR FLOW: SEE BELOW COMMENTS: 1. NORMAL LEFT VENTRICULAR EJECTION FRACTION 55-60% 2. NORMAL WALL MOTION 3. NORMAL DIASTOLIC FUNCTION 4. MILD MITRAL REGURGITATION 5. MILD PULMONIC INSUFFICIENCY TECHNOLOGIST: JULIAN BUNCH
--- NOTE | 2022-06-27 14:28 | RAD REPORT ---
EXAM DESCRIPTION: Chest Single View CLINICAL HISTORY: 31 years Male PICC line placement COMPARISON: Chest x-ray 06/25/2022 FINDINGS: Right-sided PICC tip likely in the caudal SVC. Lung volumes adequate. Cardiac silhouette is unchanged. No pneumothorax. No large pleural effusion. No focal consolidation. Osseous structures unchanged. IMPRESSION: 1. Right-sided PICC tip likely in the caudal SVC. 2. No acute cardiopulmonary findings. Electronically signed by: Desmond Tai MD 06/27/2022 1:44 AM EYEGLASS INSPECTOR Due to temporary technical issues with the PACS/Fluency reporting system, reports are being signed by the in house radiologists without review as a courtesy to insure prompt reporting. The interpreting radiologist is fully responsible for the content of the report.
[2022-06-27] MEDS: NACHLORIDE 0.45% 1,000 ML IV SCH (17:12)
[2022-06-27] MEDS: CALCIUM ACETATE 667 MG TAB PO SCH (17:13)
[2022-06-27] MEDS: FERROUS GLUCONATE 324 MG TAB PO SCH (17:55)
--- NOTE | 2022-06-27 18:14 | PN ---
Date of Progress Note: 06/27/2022 Subjective: The patient is awake, alert, feels better. Objective: Vital Signs: Stable. Afebrile. Extremities: Left leg erythema is gone below the knee and edema is improving. Dressing is clean, dr y, and intact. Laboratory Data: White count is now down to 9.7. Assessment: Left second toe osteomyelitis with cellulitis. Recommendations: Continue IV antibiotics as ordered. The patient does have a PICC line. Discharge planning for 6 weeks of IV antibiotics. The patient can follow up with me in the wound healing cente r upon discharge. /MODL Voice ID: [id number] Report ID: [id number]
--- NOTE | 2022-06-27 20:03 | P.PN ---
Subjective Date of Service: 06/27/22 Chief Complaint: Severe sepsis, left lower extremity cellulitis No acute events overnight. His erythema, pain, and swelling have improved compared to yesterday. His creatinine is relatively unchanged compared to yesterday. He denies any significant change in urine output. Review of Systems 10-point ROS is otherwise unremarkable Integumentary: Rash (LLE cellulitis with great toe ulcer) Physical Examination - Vital Signs Temperature: 98.9 F Blood Pressure: 140/74 Pulse: 93 Respirations: 18 Pulse Ox (%): 99 - Physical Exam General: Alert, In no apparent distress, Oriented x3 HEENT: Atraumatic, EOMI, Sclerae nonicteric Neck: JVD not distended Respiratory: Clear to auscultation bilaterally, Normal air movement Cardiovascular: Regular rate/rhythm, Normal S1 S2, Edema (LLE edema) Gastrointestinal: Normal bowel sounds, Soft and benign, Non-distended, No tenderness, No rebound, No guarding Musculoskeletal: No clubbing, Swelling (LLE) Integumentary: Tenderness/swelling (LLE), Erythema (LLE), Warmth (LLE), Diabetic ulcer (left great toe) Neurological: Normal speech, Normal affect Assessment And Plan - Plan # Severe Sepsis likely secondary to Left Lower Extremity Cellulitis with a Diabetic Ulcer/Left Great Toe Osteomyelitis He met sepsis criteria based on HR > 90 bpm and WBC > 12,000 and the suspected source is cellulitis with osteomyelitis. Severe sepsis is suspected due to concern for tissue hypoperfusion/organ dysfunction based on creatinine >2.0 mg/dL (without ESRD). - Sepsis order set was initiated - Initial Lactate was 1.2 - Left lower extremity Doppler = "1. No sonographic evidence for left lower extremity deep venous thrombosis." - Left foot x-ray = "1. No acute osseous abnormality or evidence for osteomyelitis. 2. Probable small ulcer along the plantar medial aspect of distal phalanx of great toe." - MRI left foot = "signal abnormality in the first distal phalanx and first proximal phalanx head is suspicious but not definitive for osteomyelitis. No bone destruction seen. Soft tissue wound seen plantar surface first toe without abscess or drainable fluid collection." - Blood cultures drawn before antibiotics were given - Broad spectrum antibiotics started: Vancomycin + Cefepime - In regards to fluids: - 30 mL/kg of IV fluids was not administered given SBP > 90, MAP > 65, lactic acid < 4 - General Surgery consulted and spoke with Dr. Galeana - recommendations appreciated - Infectious Diseases consulted and spoke with Dr. Lucas - recommendations appreciated - Recommended LTAC for IV antibiotics and [facility] # KDIGO Stage III Acute Kidney Injury on Chronic Kidney Disease Stage III with Hyperkalemia # Microscopic Hematuria # Anemia of Chronic Kidney Disease - Nephrology consulted and spoke with Dr. Moreno - recommendations appreciated - Creatinine = 4.38 -> 4.61 -> 4.65 -> 4.25 (baseline creatinine ~1.3-1.5) - Potassium = 5.2 -> 5.6 -> 5.1 -> 4.9 - Urinalysis = 2+ glucose, 3+ blood, 11-20 RBCs - Renal ultrasound = "no hydronephrosis or suspicious renal mass. Bilateral increased renal cortical echogenicity consistent with underlying medical renal disease. Bladder perkins are accentuated by a mostly contracted state and cannot be accurately assessed." - Monitor creatinine and urine output - Renally dose medications # Hyperglycemia in Type II Diabetes Mellitus - Hgb A1c not interpretable given anemia - Continue home insulin regimen - Correction scale insulin Thanh Gallardo M.D.
[2022-06-27] MEDS: LACTOBACILLUS/ACIDOPHILUS TAB PO SCH (21:08)
[2022-06-27] MEDS ORDERED: EPOETIN ALFA-EPBX 10,000 UNIT/ML VIAL ONE (21:41)
[2022-06-27] MEDS: EPOETIN ALFA 10,000 UNIT/ML VIAL SQ SCH (22:17)
--- NOTE | 2022-06-27 22:22 | P.PN ---
Date of Service: 06/27/22 Vital Signs Temp Pulse Resp BP Pulse Ox 98.9 F 93 H 18 140/74 99 06/27/22 20:02 06/27/22 20:02 06/27/22 21:08 06/27/22 20:02 06/27/22 21:08 Medications Acetaminophen (Acetaminophen 500 Mg Tab) 500 mg PO Q4HP PRN PRN Reason: TEMP > 100' F Last Admin: 06/26/22 22:33 Dose: 500 mg Hydrocodone Bitart/Acetaminophen (Hydrocodone/Apap 5/325 Mg Tab) 1 tab PO Q6H PRN PRN Reason: Pain scale 5-7 (Moderate) Last Admin: 06/27/22 21:08 Dose: 1 tab Calcium Acetate (Calcium Acetate 667 Mg Tab) 667 mg PO TIDWM [facility] Last Admin: 06/27/22 17:13 Dose: 667 mg Dextrose (D10w 250 Ml Bag) 125 ml IV PRN PRN; Protocol PRN Reason: HYPOGLYCEMIA Emollient Gel (Medihoney 44 Ml Topical Tube) 1 appl TOP DAILY [facility] Last Admin: 06/27/22 07:36 Dose: 1 appl Epoetin Hunter (Epoetin Hunter 10,000 Unit/Ml Vial) 10,000 unit SQ M,W,F [facility] Last Admin: 06/27/22 22:17 Dose: 10,000 unit Ferrous Gluconate (Ferrous Gluconate 324 Mg Tab) 324 mg PO DAILY [facility] Last Admin: 06/27/22 17:55 Dose: 324 mg Glucagon (Glucagon 1 Mg/Vial) 1 mg IM 1X PRN; Protocol PRN Reason: HYPOGLYCEMIA Heparin Sodium (Porcine) (Heparin 5000 Unit/Ml 1 Ml Vial) 5,000 unit SQ Q12HR [facility] Last Admin: 06/27/22 21:00 Dose: Not Given Cefepime HCl 1 gm/ Sodium (Chloride) 100 mls @ 200 mls/hr IV DAILY [facility]; Protocol Last Admin: 06/27/22 07:34 Dose: 100 mls Vancomycin HCl 1.5 gm/ Sodium (Chloride) 500 mls @ 250 mls/hr IVPB Q36H [facility] Last Admin: 06/27/22 12:33 Dose: 500 mls Sodium Chloride (Sodium Chloride 0.45%) 1,000 mls @ 100 mls/hr IV .Q10H [facility] Last Admin: 06/27/22 17:12 Dose: 1,000 mls Insulin Human Regular (Insulin -Regular Human 50 Unit/0.5 Ml Ml) 0 unit SQ ACHS [facility]; Protocol Last Admin: 06/27/22 21:00 Dose: Not Given Lactobacillus Acidoph/Bulgaricus (Lactobacillus/Acidophilus Tab) 1 tab PO BID [facility] Last Admin: 06/27/22 21:08 Dose: 1 tab Ondansetron HCl (Ondansetron 4 Mg/2 Ml Vial) 4 mg IV Q6HP PRN PRN Reason: NAUSEA / VOMITING Sodium Bicarbonate (Sodium Bicarb 325 Mg Tab) 650 mg PO QID [facility] Last Admin: 06/27/22 21:09 Dose: 650 mg Sodium Chloride (Flush Normal Saline 10 Ml) 10 ml IV BID [facility] Last Admin: 06/27/22 21:09 Dose: 10 ml Microbiology Results 06/25/22 22:35 Blood - Blood Aerobic Blood Culture - Preliminary No growth in 24 hours. 06/25/22 22:35 Blood - Blood Anaerobic Blood Culture - Preliminary No growth in 24 hours. 06/25/22 22:15 Blood - Blood Aerobic Blood Culture - Preliminary No growth in 24 hours. 06/25/22 22:15 Blood - Blood Anaerobic Blood Culture - Preliminary No growth in 24 hours. Assessment/ Plan: Nephrology No dyspnea No chest pain Feeling better with improved LLE erythema Loose stool. +UO No acute events overnight Vitals, medications, blood work and imaging reviewed in the chart. General: Oriented x3, Cooperative HEENT: Atraumatic Neck: Supple Respiratory: Clear to auscultation bilaterally Cardiovascular: Regular rate/rhythm, Edema Gastrointestinal: Soft and benign, Non-distended Musculoskeletal: No clubbing, No contractures Integumentary: No cyanosis, Diabetic ulcer Neurological: Normal speech Laboratory Data (last 24 hrs) 06/25/22 22:15: PT 14.4 H, INR 1.31 06/25/22 22:15: WBC 18.40 H, Hgb 8.7 L, Hct 25.5 L, Plt Count 148 L 06/25/22 22:15: Sodium 137, Potassium 5.2 H, BUN 57 H, Creatinine 4.38 H, Glucose 140 H, Magnesium 1.7 Imagings Data: EXAM DESCRIPTION: US - Renal Ultrasound-Complete - 06/26/2022 5:32 am CLINICAL HISTORY: arf COMPARISON: No comparisons FINDINGS: The right kidney measures 12.3 x 6.6 x 5.8 cm. The left kidney measures 10.6 x 5.4 x 4.6 cm. Renal cortical thickness normal for each kidney. There is increased cortical echogenicity consistent with medical renal disease. No hydronephrosis of either kidney. An 18 millimeter cyst is present lower pole right kidney. A 2.2 cm cyst is present upper pole of the left kidney. There is a very small subcortical cyst mid left kidney 5 mm in size. Bladder is mostly contracted which accentuates wall thickness. Bladder evaluation is limited on this examination. IMPRESSION: No hydronephrosis or suspicious renal mass. Bilateral increased renal cortical echogenicity consistent with underlying medical renal disease. Bladder perkins are accentuated by a mostly contracted state and cannot be accurately assessed. EXAM DESCRIPTION: MRI - Foot Left Wo Cont - 06/26/2022 7:58 am CLINICAL HISTORY: R/O osteomyelitis, sepsis, chronic soft tissue wound plantar surface first digit COMPARISON: Foot Left 2 View dated 06/25/2022 TECHNIQUE: Multiplanar imaging of the left foot performed using T1 weighted, T1 fat saturation, T2 STIR and T2 fat saturation sequencing. FINDINGS: Edema signal is present in the soft tissues plantar surface of the first toe for the distal phalanx and IP joint level. No gross bone destructive changes are identifiable. No abscess or drainable fluid collection. Signal is poor around the first toe distal phalanx. This limits evaluation. Marrow signal does appear hypointense in the first distal phalanx and first proximal phalanx head. Proximal portion of the first proximal phalanx shows normal signal pattern. The second-fifth toes and the metatarsals show normal signal pattern. No suspicious finding in the midfoot. IMPRESSION: Signal abnormality in the first distal phalanx and first proximal phalanx head is suspicious but not definitive for osteomyelitis. No bone destruction seen. Soft tissue wound seen plantar surface first toe without abscess or drainable fluid collection. Conclusions/Impression: [facility] in the setting of sepsis/ hypotension CKD III with nephrotic syndrome -No NSAIDs -Change IVF 1/2NS Hyperkalemia -Lokelma prn NAG Metabolic Acidosis -Increase oral bicarb HTN with CKD -Restart Coreg; titrate as needed DM II with CKD A1C 4.6 -RISS Anemia in chronic illness Iron Deficiency 9.7% -Retacrit MWF -Start Fergon HyperPO4 Hypocalcemia -Start Phoslo -Start Ergo Sepsis DM foot ulcer Left Toe Osteomyelitis -Continue Abx X6 weeks -Renal dose vancomycin; monitor level -Follow up with Dr. Galeana Case reviewed with Dr. Gallardo
[2022-06-27] MEDS: ACETAMINOPHEN 500 MG TAB PO PRN (23:54)
[2022-06-28] MEDS: NACHLORIDE 0.45% 1,000 ML IV SCH ×3 (03:10→23:12)
[2022-06-28 04:44] LABS: Absolute Lymphocytes (CBC) 0.8 K/uL (0.7-4.9); Lymphocytes % 10.5 % (15.3-44.8); MCV 90.3 fL (80-100); MPV 9.1 fL (7.6-11.3); RBC Red Blood Cell Count 2.33 M/uL (4.33-5.43)
[2022-06-28 05:03] LABS: Albumin 1.5 g/dL (3.4-5.0); Bilirubin Total 0.2 mg/dL (0.2-1.0); Potassium 4.6 mmol/L (3.5-5.1); Protein, Total 5.1 g/dL (6.4-8.2)
[2022-06-28] MEDS: INSULIN -REGULAR HUMAN 50 UNIT/0.5 ML ML SQ SCH ×4 (07:30→20:15)
[2022-06-28] MEDS: CALCIUM ACETATE 667 MG TAB PO SCH ×3 (07:57→16:40)
[2022-06-28] MEDS: LACTOBACILLUS/ACIDOPHILUS TAB PO SCH ×2 (07:57→20:15)
[2022-06-28] MEDS: SODIUM BICARB 325 MG TAB PO SCH ×4 (07:57→20:14)
[2022-06-28] MEDS: FERROUS GLUCONATE 324 MG TAB PO SCH (07:57)
[2022-06-28] MEDS: CEFEPIME 1 GM in NA CHLORIDE 0.9% 100 ML IV SCH (07:57)
[2022-06-28] MEDS: HEPARIN 5000 UNIT/ML 1 ML VIAL SQ SCH ×2 (07:58→20:15)
[2022-06-28] MEDS: MEDIHONEY 44 ML TOPICAL TUBE TOP SCH (07:59)
[2022-06-28] MEDS ORDERED: DRISDOL (VITAMIN D=ERGOCALCIFEROL) 50000 UNIT CAP PO SCH (08:00)
[2022-06-28] MEDS: lisinopriL 5 MG TAB PO SCH ×2 (09:26→20:15)
[2022-06-28] MEDS: carvediloL 12.5 MG TAB PO SCH ×2 (09:26→20:14)
--- NOTE | 2022-06-28 10:20 | PN ---
Date of Progress Note: 06/28/2022 Subjective: The patient is awake, alert. No complaint. Objective: Vital Signs: Stable, afebrile. Extremities: Physical exam reveals the patient is still with erythema up to the knee and edema, whic h was slightly better. Dressing is clean, dry, and intact. Laboratory Data: Reviewed. White count is normal. There is a slight left shift. The patient's cre atinine is improved to 3.48 this morning. Assessment: Osteomyelitis with cellulitis, left lower extremity and left great toe and chronic kidne y disease. IV antibiotics. Recommendations: IV antibiotics. Wound care as ordered. Medical management of his kidney disease a nd once stable, can be discharged and follow up [facility]. /MODL Voice ID: [id number] Report ID: [id number]
--- NOTE | 2022-06-28 18:45 | P.PN ---
Subjective Date of Service: 06/28/22 Chief Complaint: Severe sepsis, left lower extremity cellulitis No acute events overnight. His left lower extremity tenderness and swelling continue to improve. It appears less erythematous than yesterday. His creatinine has improved compared to yesterday. He reports good urine output. Review of Systems 10-point ROS is otherwise unremarkable Musculoskeletal: Leg Pain (left) Integumentary: Other (LLE cellulitis) Physical Examination - Vital Signs Temperature: 98.4 F Blood Pressure: 162/92 Pulse: 87 Respirations: 16 Pulse Ox (%): 98 Assessment And Plan - Plan - Physical Exam General: Alert, In no apparent distress, Oriented x3 HEENT: Atraumatic, Sclerae nonicteric Neck: JVD not distended Respiratory: Clear to auscultation bilaterally, Normal air movement Cardiovascular: Regular rate/rhythm, Edema (LLE edema), No murmurs Gastrointestinal: Normal bowel sounds, Soft and benign, Non-distended, No tenderness Musculoskeletal: No clubbing, Swelling (LLE) Integumentary: Tenderness/swelling (LLE), Erythema (LLE), Warmth (LLE), Diabetic ulcer (left great toe) - cellulitis improving compared to yesterday Neurological: Normal speech, Normal affect # Severe Sepsis likely secondary to Left Lower Extremity Cellulitis with a Diabetic Ulcer/Left Great Toe Osteomyelitis He met sepsis criteria based on HR > 90 bpm and WBC > 12,000 and the suspected source is cellulitis with osteomyelitis. Severe sepsis is suspected due to concern for tissue hypoperfusion/organ dysfunction based on creatinine >2.0 mg/dL (without ESRD). - Sepsis order set was initiated - Initial Lactate was 1.2 - Left lower extremity Doppler = "1. No sonographic evidence for left lower extremity deep venous thrombosis." - Left foot x-ray = "1. No acute osseous abnormality or evidence for osteomyelitis. 2. Probable small ulcer along the plantar medial aspect of distal phalanx of great toe." - MRI left foot = "signal abnormality in the first distal phalanx and first proximal phalanx head is suspicious but not definitive for osteomyelitis. No bone destruction seen. Soft tissue wound seen plantar surface first toe without abscess or drainable fluid collection." - Blood cultures drawn before antibiotics were given - Broad spectrum antibiotics started: Vancomycin + Cefepime - In regards to fluids: - 30 mL/kg of IV fluids was not administered given SBP > 90, MAP > 65, lactic acid < 4 - General Surgery consulted and spoke with Dr. Galeana - recommendations appreciated - Infectious Diseases consulted and spoke with Dr. Lucas - recommendations appreciated - Recommended LTAC for IV antibiotics and [facility] - He has declined LTAC # KDIGO Stage III Acute Kidney Injury on Chronic Kidney Disease Stage III with Hyperkalemia # Microscopic Hematuria # Anemia of Chronic Kidney Disease - Nephrology consulted and spoke with Dr. Moreno - recommendations appreciated - Creatinine = 4.38 -> 4.61 -> 4.65 -> 4.25 -> 3.48 (baseline creatinine ~1.3- 1.5) - Potassium = 5.2 -> 5.6 -> 5.1 -> 4.9 -> 4.6 - Urinalysis = 2+ glucose, 3+ blood, 11-20 RBCs - Renal ultrasound = "no hydronephrosis or suspicious renal mass. Bilateral increased renal cortical echogenicity consistent with underlying medical renal disease. Bladder perkins are accentuated by a mostly contracted state and cannot be accurately assessed." - Monitor creatinine and urine output - Renally dose medications # Hyperglycemia in Type II Diabetes Mellitus - Hgb A1c not interpretable given anemia - Continue home insulin regimen - Correction scale insulin Thanh Gallardo M.D.
--- NOTE | 2022-06-28 21:44 | P.PN ---
Date of Service: 06/28/22 Vital Signs Temp Pulse Resp BP Pulse Ox 98.2 F 89 18 174/80 H 98 06/28/22 20:00 06/28/22 20:15 06/28/22 20:00 06/28/22 20:15 06/28/22 20:00 Medications Acetaminophen (Acetaminophen 500 Mg Tab) 500 mg PO Q4HP PRN PRN Reason: TEMP > 100' F Last Admin: 06/27/22 23:54 Dose: 500 mg Hydrocodone Bitart/Acetaminophen (Hydrocodone/Apap 5/325 Mg Tab) 1 tab PO Q6H PRN PRN Reason: Pain scale 5-7 (Moderate) Last Admin: 06/27/22 21:08 Dose: 1 tab Calcium Acetate (Calcium Acetate 667 Mg Tab) 667 mg PO TIDWM [facility] Last Admin: 06/28/22 16:40 Dose: 667 mg Carvedilol (Carvedilol 12.5 Mg Tab) 12.5 mg PO BID [facility] Last Admin: 06/28/22 20:14 Dose: 12.5 mg Dextrose (D10w 250 Ml Bag) 125 ml IV PRN PRN; Protocol PRN Reason: HYPOGLYCEMIA Emollient Gel (Medihoney 44 Ml Topical Tube) 1 appl TOP DAILY [facility] Last Admin: 06/28/22 07:59 Dose: 1 appl Epoetin Hunter (Epoetin Hunter 10,000 Unit/Ml Vial) 10,000 unit SQ M,W,F [facility] Last Admin: 06/27/22 22:17 Dose: 10,000 unit Ergocalciferol (Drisdol (Vitamin D=Ergocalciferol) 08191 Unit Cap) 50,000 unit PO Q7D [facility] Last Admin: 06/28/22 09:26 Dose: 50,000 unit Ferrous Gluconate (Ferrous Gluconate 324 Mg Tab) 324 mg PO DAILY [facility] Last Admin: 06/28/22 07:57 Dose: 324 mg Glucagon (Glucagon 1 Mg/Vial) 1 mg IM 1X PRN; Protocol PRN Reason: HYPOGLYCEMIA Heparin Sodium (Porcine) (Heparin 5000 Unit/Ml 1 Ml Vial) 5,000 unit SQ Q12HR [facility] Last Admin: 06/28/22 20:15 Dose: Not Given Cefepime HCl 1 gm/ Sodium (Chloride) 100 mls @ 200 mls/hr IV DAILY [facility]; Protocol Last Admin: 06/28/22 07:57 Dose: 100 mls Vancomycin HCl 1.5 gm/ Sodium (Chloride) 500 mls @ 250 mls/hr IVPB Q36H [facility] Last Admin: 06/27/22 12:33 Dose: 500 mls Sodium Chloride (Sodium Chloride 0.45%) 1,000 mls @ 100 mls/hr IV .Q10H [facility] Last Admin: 06/28/22 12:09 Dose: 1,000 mls Insulin Human Regular (Insulin -Regular Human 50 Unit/0.5 Ml Ml) 0 unit SQ ACHS [facility]; Protocol Last Admin: 06/28/22 20:15 Dose: 2 unit Lactobacillus Acidoph/Bulgaricus (Lactobacillus/Acidophilus Tab) 1 tab PO BID [facility] Last Admin: 06/28/22 20:15 Dose: 1 tab Lisinopril (Lisinopril 5 Mg Tab) 5 mg PO BID [facility] Last Admin: 06/28/22 20:15 Dose: 5 mg Ondansetron HCl (Ondansetron 4 Mg/2 Ml Vial) 4 mg IV Q6HP PRN PRN Reason: NAUSEA / VOMITING Sodium Bicarbonate (Sodium Bicarb 325 Mg Tab) 650 mg PO QID [facility] Last Admin: 06/28/22 20:14 Dose: 650 mg Sodium Chloride (Flush Normal Saline 10 Ml) 10 ml IV BID [facility] Last Admin: 06/28/22 20:16 Dose: 10 ml Microbiology Results 06/25/22 22:35 Blood - Blood Aerobic Blood Culture - Preliminary No growth in 24 hours. 06/25/22 22:35 Blood - Blood Anaerobic Blood Culture - Preliminary No growth in 24 hours. 06/25/22 22:15 Blood - Blood Aerobic Blood Culture - Preliminary No growth in 24 hours. 06/25/22 22:15 Blood - Blood Anaerobic Blood Culture - Preliminary No growth in 24 hours. Assessment/ Plan: Nephrology No dyspnea No chest pain Doing well No acute events overnight Vitals, medications, blood work and imaging reviewed in the chart. General: Oriented x3, Cooperative HEENT: Atraumatic Neck: Supple Respiratory: Clear to auscultation bilaterally Cardiovascular: Regular rate/rhythm, Edema Gastrointestinal: Soft and benign, Non-distended Musculoskeletal: No clubbing, No contractures Integumentary: No cyanosis, Diabetic ulcer Neurological: Normal speech Laboratory Data (last 24 hrs) 06/25/22 22:15: PT 14.4 H, INR 1.31 06/25/22 22:15: WBC 18.40 H, Hgb 8.7 L, Hct 25.5 L, Plt Count 148 L 06/25/22 22:15: Sodium 137, Potassium 5.2 H, BUN 57 H, Creatinine 4.38 H, Glucose 140 H, Magnesium 1.7 Imagings Data: EXAM DESCRIPTION: US - Renal Ultrasound-Complete - 06/26/2022 5:32 am CLINICAL HISTORY: arf COMPARISON: No comparisons FINDINGS: The right kidney measures 12.3 x 6.6 x 5.8 cm. The left kidney measures 10.6 x 5.4 x 4.6 cm. Renal cortical thickness normal for each kidney. There is increased cortical echogenicity consistent with medical renal disease. No hydronephrosis of either kidney. An 18 millimeter cyst is present lower pole right kidney. A 2.2 cm cyst is present upper pole of the left kidney. There is a very small subcortical cyst mid left kidney 5 mm in size. Bladder is mostly contracted which accentuates wall thickness. Bladder evaluation is limited on this examination. IMPRESSION: No hydronephrosis or suspicious renal mass. Bilateral increased renal cortical echogenicity consistent with underlying medical renal disease. Bladder perkins are accentuated by a mostly contracted state and cannot be accurately assessed. EXAM DESCRIPTION: MRI - Foot Left Wo Cont - 06/26/2022 7:58 am CLINICAL HISTORY: R/O osteomyelitis, sepsis, chronic soft tissue wound plantar surface first digit COMPARISON: Foot Left 2 View dated 06/25/2022 TECHNIQUE: Multiplanar imaging of the left foot performed using T1 weighted, T1 fat saturation, T2 STIR and T2 fat saturation sequencing. FINDINGS: Edema signal is present in the soft tissues plantar surface of the first toe for the distal phalanx and IP joint level. No gross bone destructive changes are identifiable. No abscess or drainable fluid collection. Signal is poor around the first toe distal phalanx. This limits evaluation. Marrow signal does appear hypointense in the first distal phalanx and first proximal phalanx head. Proximal portion of the first proximal phalanx shows normal signal pattern. The second-fifth toes and the metatarsals show normal signal pattern. No suspicious finding in the midfoot. IMPRESSION: Signal abnormality in the first distal phalanx and first proximal phalanx head is suspicious but not definitive for osteomyelitis. No bone destruction seen. Soft tissue wound seen plantar surface first toe without abscess or drainable fluid collection. Conclusions/Impression: [facility] in the setting of sepsis/ hypotension CKD III with nephrotic syndrome -No NSAIDs -Continue IVF 1/2NS Hyperkalemia -Lokelma prn NAG Metabolic Acidosis -Continue oral bicarb HTN with CKD -Increase Coreg DM II with CKD A1C 4.6 -RISS Anemia in chronic illness Iron Deficiency 9.7% -Retacrit MWF -Continue Fergon HyperPO4 Hypocalcemia -Continue Phoslo -Continue Ergo Sepsis DM foot ulcer Left Toe Osteomyelitis -Continue Abx X6 weeks -Renal dose vancomycin; monitor level -Follow up with Dr. Galeana Case reviewed with Dr. Gallardo
[2022-06-29] MEDS: VANCOMYCIN 1.5 GM in NA CHLORIDE 0.9% 500 ML IVPB SCH ×2
[2022-06-29 06:10] LABS: Potassium 4.5 mmol/L (3.5-5.1)
[2022-06-29 06:25] LABS: Absolute Lymphocytes (CBC) 0.9 K/uL (0.7-4.9); Hematocrit 18.5 % (39.6-49.0); Lymphocytes % 13.3 % (15.3-44.8); MPV 9.1 fL (7.6-11.3); RBC Red Blood Cell Count 2.04 M/uL (4.33-5.43)
[2022-06-29] MEDS: INSULIN -REGULAR HUMAN 50 UNIT/0.5 ML ML SQ SCH ×4 (07:30→20:38)
[2022-06-29] MEDS: CEFEPIME 1 GM in NA CHLORIDE 0.9% 100 ML IV SCH (07:34)
[2022-06-29] MEDS: SODIUM BICARB 325 MG TAB PO SCH ×4 (07:35→20:37)
[2022-06-29] MEDS: LACTOBACILLUS/ACIDOPHILUS TAB PO SCH ×2 (07:36→20:36)
[2022-06-29] MEDS: CALCIUM ACETATE 667 MG TAB PO SCH ×3 (07:36→16:22)
[2022-06-29] MEDS: FERROUS GLUCONATE 324 MG TAB PO SCH (07:36)
[2022-06-29] MEDS: lisinopriL 5 MG TAB PO SCH ×2 (07:36→20:36)
[2022-06-29] MEDS: carvediloL 12.5 MG TAB PO SCH ×2 (07:37→20:37)
[2022-06-29] MEDS: MEDIHONEY 44 ML TOPICAL TUBE TOP SCH (07:37)
[2022-06-29] MEDS: NACHLORIDE 0.45% 1,000 ML IV SCH ×3 (07:44→19:00)
[2022-06-29] MEDS: HEPARIN 5000 UNIT/ML 1 ML VIAL SQ SCH ×2 (07:46→20:38)
[2022-06-29] MEDS ORDERED: NA CHLORIDE 0.9% 250 ML IV SCH (08:00)
[2022-06-29] MEDS ORDERED: NA CHLORIDE 0.9% 250 ML ONE (10:36)
--- NOTE | 2022-06-29 10:46 | PN ---
Date of Progress Note: 06/29/2022 Subjective: The patient is awake, alert. No complaints. Objective: Vital Signs: Stable, afebrile. Extremities: His erythema and edema are slowly improving. Laboratory Data: He has H and H are markedly decreased, 6.3 right now his hemoglobin. Creatinine is better. Assessment: Left leg cellulitis with osteomyelitis, chronic kidney disease, and anemia. Recommendations: Continue IV antibiotics as ordered. Wound care as ordered. Medical management for the anemia and kidney disease. Discharge planning in progress. /MODL Voice ID: [id number] Report ID: [id number]
[2022-06-29] MEDS ORDERED: VANCOMYCIN 1.5 GM in NA CHLORIDE 0.9% 500 ML IVPB SCH ×2 (12:00→16:00)
[2022-06-29 17:12] LABS: Hematocrit 21.4 % (39.6-49.0)
--- NOTE | 2022-06-29 18:22 | P.PN ---
Date of Service: 06/29/22 Vital Signs Temp Pulse Resp BP Pulse Ox 97.4 F 88 16 194/94 H 98 06/29/22 16:00 06/29/22 16:00 06/29/22 16:00 06/29/22 16:00 06/29/22 16:00 Medications Acetaminophen (Acetaminophen 500 Mg Tab) 500 mg PO Q4HP PRN PRN Reason: TEMP > 100' F Last Admin: 06/27/22 23:54 Dose: 500 mg Hydrocodone Bitart/Acetaminophen (Hydrocodone/Apap 5/325 Mg Tab) 1 tab PO Q6H PRN PRN Reason: Pain scale 5-7 (Moderate) Last Admin: 06/27/22 21:08 Dose: 1 tab Calcium Acetate (Calcium Acetate 667 Mg Tab) 667 mg PO TIDWM [facility] Last Admin: 06/29/22 16:22 Dose: 667 mg Carvedilol (Carvedilol 12.5 Mg Tab) 25 mg PO BID [facility] Last Admin: 06/29/22 07:37 Dose: 25 mg Dextrose (D10w 250 Ml Bag) 125 ml IV PRN PRN; Protocol PRN Reason: HYPOGLYCEMIA Emollient Gel (Medihoney 44 Ml Topical Tube) 1 appl TOP DAILY [facility] Last Admin: 06/29/22 07:37 Dose: 1 appl Epoetin Hunter (Epoetin Hunter 10,000 Unit/Ml Vial) 10,000 unit SQ M,W,F [facility] Last Admin: 06/27/22 22:17 Dose: 10,000 unit Ergocalciferol (Drisdol (Vitamin D=Ergocalciferol) 07084 Unit Cap) 50,000 unit PO Q7D [facility] Last Admin: 06/28/22 09:26 Dose: 50,000 unit Ferrous Gluconate (Ferrous Gluconate 324 Mg Tab) 324 mg PO DAILY [facility] Last Admin: 06/29/22 07:36 Dose: 324 mg Glucagon (Glucagon 1 Mg/Vial) 1 mg IM 1X PRN; Protocol PRN Reason: HYPOGLYCEMIA Heparin Sodium (Porcine) (Heparin 5000 Unit/Ml 1 Ml Vial) 5,000 unit SQ Q12HR [facility] Last Admin: 06/29/22 07:46 Dose: Not Given Cefepime HCl 1 gm/ Sodium (Chloride) 100 mls @ 200 mls/hr IV DAILY [facility]; Protocol Last Admin: 06/29/22 07:34 Dose: 100 mls Sodium Chloride (Sodium Chloride 0.45%) 1,000 mls @ 100 mls/hr IV .Q10H [facility] Last Admin: 06/29/22 09:00 Dose: Not Given Sodium Chloride (Sodium Chloride) 250 mls @ 0 mls/hr IV .Q0M [facility] Vancomycin HCl 1.5 gm/ Sodium (Chloride) 500 mls @ 333.333 mls/hr IVPB Q48H [facility] Last Admin: 06/29/22 16:16 Dose: 500 mls Insulin Human Regular (Insulin -Regular Human 50 Unit/0.5 Ml Ml) 0 unit SQ ACHS [facility]; Protocol Last Admin: 06/29/22 16:21 Dose: Not Given Lactobacillus Acidoph/Bulgaricus (Lactobacillus/Acidophilus Tab) 1 tab PO BID [facility] Last Admin: 06/29/22 07:36 Dose: 1 tab Lisinopril (Lisinopril 5 Mg Tab) 5 mg PO BID [facility] Last Admin: 06/29/22 07:36 Dose: 5 mg Ondansetron HCl (Ondansetron 4 Mg/2 Ml Vial) 4 mg IV Q6HP PRN PRN Reason: NAUSEA / VOMITING Sodium Bicarbonate (Sodium Bicarb 325 Mg Tab) 650 mg PO QID [facility] Last Admin: 06/29/22 16:21 Dose: 650 mg Sodium Chloride (Flush Normal Saline 10 Ml) 10 ml IV BID [facility] Last Admin: 06/29/22 07:38 Dose: 10 ml Microbiology Results 06/25/22 22:35 Blood - Blood Aerobic Blood Culture - Preliminary No growth in 24 hours. 06/25/22 22:35 Blood - Blood Anaerobic Blood Culture - Preliminary No growth in 24 hours. 06/25/22 22:15 Blood - Blood Aerobic Blood Culture - Preliminary No growth in 24 hours. 06/25/22 22:15 Blood - Blood Anaerobic Blood Culture - Preliminary No growth in 24 hours. Assessment/ Plan: Nephrology No dyspnea No chest pain Doing well No acute events overnight Vitals, medications, blood work and imaging reviewed in the chart. General: Oriented x3, Cooperative HEENT: Atraumatic Neck: Supple Respiratory: Clear to auscultation bilaterally Cardiovascular: Regular rate/rhythm, Edema Gastrointestinal: Soft and benign, Non-distended Musculoskeletal: No clubbing, No contractures Integumentary: No cyanosis, Diabetic ulcer Neurological: Normal speech Laboratory Data (last 24 hrs) 06/25/22 22:15: PT 14.4 H, INR 1.31 06/25/22 22:15: WBC 18.40 H, Hgb 8.7 L, Hct 25.5 L, Plt Count 148 L 06/25/22 22:15: Sodium 137, Potassium 5.2 H, BUN 57 H, Creatinine 4.38 H, Glucose 140 H, Magnesium 1.7 Imagings Data: EXAM DESCRIPTION: US - Renal Ultrasound-Complete - 06/26/2022 5:32 am CLINICAL HISTORY: arf COMPARISON: No comparisons FINDINGS: The right kidney measures 12.3 x 6.6 x 5.8 cm. The left kidney measures 10.6 x 5.4 x 4.6 cm. Renal cortical thickness normal for each kidney. There is increased cortical echogenicity consistent with medical renal disease. No hydronephrosis of either kidney. An 18 millimeter cyst is present lower pole right kidney. A 2.2 cm cyst is present upper pole of the left kidney. There is a very small subcortical cyst mid left kidney 5 mm in size. Bladder is mostly contracted which accentuates wall thickness. Bladder evaluation is limited on this examination. IMPRESSION: No hydronephrosis or suspicious renal mass. Bilateral increased renal cortical echogenicity consistent with underlying medical renal disease. Bladder perkins are accentuated by a mostly contracted state and cannot be accurately assessed. EXAM DESCRIPTION: MRI - Foot Left Wo Cont - 06/26/2022 7:58 am CLINICAL HISTORY: R/O osteomyelitis, sepsis, chronic soft tissue wound plantar surface first digit COMPARISON: Foot Left 2 View dated 06/25/2022 TECHNIQUE: Multiplanar imaging of the left foot performed using T1 weighted, T1 fat saturation, T2 STIR and T2 fat saturation sequencing. FINDINGS: Edema signal is present in the soft tissues plantar surface of the first toe for the distal phalanx and IP joint level. No gross bone destructive changes are identifiable. No abscess or drainable fluid collection. Signal is poor around the first toe distal phalanx. This limits evaluation. Marrow signal does appear hypointense in the first distal phalanx and first proximal phalanx head. Proximal portion of the first proximal phalanx shows normal signal pattern. The second-fifth toes and the metatarsals show normal signal pattern. No suspicious finding in the midfoot. IMPRESSION: Signal abnormality in the first distal phalanx and first proximal phalanx head is suspicious but not definitive for osteomyelitis. No bone destruction seen. Soft tissue wound seen plantar surface first toe witho ut abscess or drainable fluid collection. Conclusions/Impression: [facility] in the setting of sepsis/ hypotension CKD III with nephrotic syndrome -No NSAIDs -Continue IVF 1/2NS Hyperkalemia -Lokelma prn NAG Metabolic Acidosis -Continue oral bicarb HTN with CKD -Continue Coreg DM II with CKD A1C 4.6 -RISS Anemia in chronic illness Iron Deficiency 9.7% -Retacrit MWF -Continue Fergon HyperPO4 Hypocalcemia -Increase Phoslo -Continue Ergo Sepsis DM foot ulcer Left Toe Osteomyelitis -Continue Abx X6 weeks -Renal dose vancomycin; monitor level -Follow up with Dr. Galeana Case reviewed with Dr. Gallardo
[2022-06-29] MEDS ORDERED: SODIUM CHLORIDE 0.9% 10ML INJ IV PRN (18:42)
--- NOTE | 2022-06-29 18:42 | P.PN ---
Subjective Date of Service: 06/29/22 Chief Complaint: Severe sepsis, left lower extremity cellulitis This morning, his hemoglobin level has dropped to 6.3. There is no obvious evidence of bleeding. Suspect that this may be a component of dilution as well as anemia of chronic kidney disease. We will monitor this closely. 1 unit of packed red blood cells was ordered. We will trend serial H&H levels. He reports that his left lower extremity cellulitis is improving significantly, and he has minimal pain and tenderness to the region. He denies any change in his urine output. Review of Systems 10-point ROS is otherwise unremarkable Integumentary: Rash (left lower extremity cellulitis) Physical Examination - Vital Signs Temperature: 97.4 F Blood Pressure: 159/82 Pulse: 87 Respirations: 16 Pulse Ox (%): 98 Assessment And Plan - Plan - Physical Exam General: Alert, In no apparent distress, Oriented x3 HEENT: Atraumatic, Sclerae nonicteric Neck: JVD not distended Respiratory: Clear to auscultation bilaterally, Normal air movement Cardiovascular: Regular rate/rhythm, Edema (LLE edema), No murmurs Gastrointestinal: Normal bowel sounds, Soft and benign, Non-distended, No tenderness Musculoskeletal: No clubbing, Swelling (LLE) Integumentary: Tenderness/swelling (LLE), Erythema (LLE), Warmth (LLE), Diabetic ulcer (left great toe) - cellulitis continuing to improve. Erythema is from left foot up to about 4-5 inches from his left knee. Left great toe callus is covered in surgical dressing. Neurological: Normal speech, Normal affect # Severe Sepsis likely secondary to Left Lower Extremity Cellulitis with a Diabetic Ulcer/Left Great Toe Osteomyelitis He met sepsis criteria based on HR > 90 bpm and WBC > 12,000 and the suspected source is cellulitis with osteomyelitis. Severe sepsis is suspected due to concern for tissue hypoperfusion/organ dysfunction based on creatinine >2.0 mg/dL (without ESRD). - Sepsis order set was initiated - Initial Lactate was 1.2 - Left lower extremity Doppler = "1. No sonographic evidence for left lower extremity deep venous thrombosis." - Left foot x-ray = "1. No acute osseous abnormality or evidence for osteomyelitis. 2. Probable small ulcer along the plantar medial aspect of distal phalanx of great toe." - MRI left foot = "signal abnormality in the first distal phalanx and first proximal phalanx head is suspicious but not definitive for osteomyelitis. No bone destruction seen. Soft tissue wound seen plantar surface first toe without abscess or drainable fluid collection." - Blood cultures drawn before antibiotics were given - Broad spectrum antibiotics started: Vancomycin + Cefepime - In regards to fluids: - 30 mL/kg of IV fluids was not administered given SBP > 90, MAP > 65, lactic acid < 4 - General Surgery consulted and spoke with Dr. Galeana - recommendations appreciated - S/P bedside debridement of the left great toe osteomyelitis - Infectious Diseases consulted and spoke with Dr. Lucas - recommendations appreciated - Recommended LTAC for IV antibiotics and [facility] - He has declined LTAC - Will need 6 weeks of IV Vancomycin + Cefepime = (06/27/2022 - 08/07/2022) # KDIGO Stage III Acute Kidney Injury on Chronic Kidney Disease Stage III with Hyperkalemia # Microscopic Hematuria - Nephrology consulted and spoke with Dr. Moreno - recommendations appreciated - Creatinine = 4.38 -> 4.61 -> 4.65 -> 4.25 -> 3.48 -> 2.83 (baseline creatinine ~1.3-1.5) - Potassium = 5.2 -> 5.6 -> 5.1 -> 4.9 -> 4.6 - Urinalysis = 2+ glucose, 3+ blood, 11-20 RBCs - Renal ultrasound = "no hydronephrosis or suspicious renal mass. Bilateral increased renal cortical echogenicity consistent with underlying medical renal disease. Bladder perkins are accentuated by a mostly contracted state and cannot be accurately assessed." - Monitor creatinine and urine output - Renally dose medications # Acute on Chronic Anemia of Chronic Kidney Disease # Suspect Co-Existing Iron-Deficiency Anemia - Hgb 6.3 this morning - Type & Screen and 1 unit pRBCs ordered - Serial H&H - transfuse for Hgb < 7.0 - 2 large bore IVs - Pantoprazole 40 mg IV BID - Started on ferrous gluconate # Hyperglycemia in Type II Diabetes Mellitus - Hgb A1c not interpretable given anemia - Continue home insulin regimen - Correction scale insulin Thanh Gallardo M.D.
[2022-06-29] MEDS: PANTOPRAZOLE 40 MG INJ IVP SCH (20:37)
[2022-06-30] MEDS: NACHLORIDE 0.45% 1,000 ML IV SCH ×3 (00:53→14:18)
[2022-06-30 04:46] LABS: Absolute Lymphocytes (CBC) 0.9 K/uL (0.7-4.9); Lymphocytes % 13.2 % (15.3-44.8); MCV 89.1 fL (80-100); MPV 8.6 fL (7.6-11.3); RBC Red Blood Cell Count 2.21 M/uL (4.33-5.43)
[2022-06-30 04:55] LABS: Potassium 4.4 mmol/L (3.5-5.1)
[2022-06-30 05:04] LABS: Hematocrit 19.6 % (39.6-49.0)
[2022-06-30] MEDS ORDERED: NA CHLORIDE 0.9% 250 ML IV SCH (06:00)
[2022-06-30] MEDS: INSULIN -REGULAR HUMAN 50 UNIT/0.5 ML ML SQ SCH ×4 (07:30→21:12)
[2022-06-30] MEDS ORDERED: CEFEPIME 1 GM/VIAL ONE ×2 (08:04→09:24)
[2022-06-30] MEDS: HEPARIN 5000 UNIT/ML 1 ML VIAL SQ SCH ×2 (09:00→21:11)
[2022-06-30] MEDS: FERROUS GLUCONATE 324 MG TAB PO SCH (09:22)
[2022-06-30] MEDS: LACTOBACILLUS/ACIDOPHILUS TAB PO SCH ×2 (09:22→21:10)
[2022-06-30] MEDS: CALCIUM ACETATE 667 MG TAB PO SCH ×3 (09:23→16:32)
[2022-06-30] MEDS: PANTOPRAZOLE 40 MG INJ IVP SCH ×2 (09:24→21:11)
[2022-06-30] MEDS: carvediloL 12.5 MG TAB PO SCH ×2 (09:28→21:11)
[2022-06-30] MEDS: lisinopriL 5 MG TAB PO SCH (09:29)
[2022-06-30] MEDS: MEDIHONEY 44 ML TOPICAL TUBE TOP SCH (09:30)
[2022-06-30] MEDS: CEFEPIME 1 GM in NA CHLORIDE 0.9% 100 ML IV SCH (09:47)
[2022-06-30] MEDS: SODIUM BICARB 325 MG TAB PO SCH ×4 (09:48→21:10)
--- NOTE | 2022-06-30 10:39 | P.PN ---
Date of Service: 06/30/22 Vital Signs Temp Pulse Resp BP Pulse Ox 97.6 F 82 16 202/99 H 98 06/30/22 08:00 06/30/22 09:28 06/30/22 08:00 06/30/22 09:28 06/30/22 08:00 Medications Acetaminophen (Acetaminophen 500 Mg Tab) 500 mg PO Q4HP PRN PRN Reason: TEMP > 100' F Last Admin: 06/27/22 23:54 Dose: 500 mg Hydrocodone Bitart/Acetaminophen (Hydrocodone/Apap 5/325 Mg Tab) 1 tab PO Q6H PRN PRN Reason: Pain scale 5-7 (Moderate) Last Admin: 06/27/22 21:08 Dose: 1 tab Calcium Acetate (Calcium Acetate 667 Mg Tab) 1,334 mg PO TIDWM [facility] Last Admin: 06/30/22 09:23 Dose: 1,334 mg Carvedilol (Carvedilol 12.5 Mg Tab) 25 mg PO BID [facility] Last Admin: 06/30/22 09:28 Dose: 25 mg Dextrose (D10w 250 Ml Bag) 125 ml IV PRN PRN; Protocol PRN Reason: HYPOGLYCEMIA Emollient Gel (Medihoney 44 Ml Topical Tube) 1 appl TOP DAILY [facility] Last Admin: 06/30/22 09:30 Dose: 1 appl Epoetin Hunter (Epoetin Hunter 10,000 Unit/Ml Vial) 10,000 unit SQ M,W,F [facility] Last Admin: 06/27/22 22:17 Dose: 10,000 unit Ergocalciferol (Drisdol (Vitamin D=Ergocalciferol) 38053 Unit Cap) 50,000 unit PO Q7D [facility] Last Admin: 06/28/22 09:26 Dose: 50,000 unit Ferrous Gluconate (Ferrous Gluconate 324 Mg Tab) 324 mg PO DAILY [facility] Last Admin: 06/30/22 09:22 Dose: 324 mg Glucagon (Glucagon 1 Mg/Vial) 1 mg IM 1X PRN; Protocol PRN Reason: HYPOGLYCEMIA Heparin Sodium (Porcine) (Heparin 5000 Unit/Ml 1 Ml Vial) 5,000 unit SQ Q12HR [facility] Last Admin: 06/30/22 09:00 Dose: Not Given Cefepime HCl 1 gm/ Sodium (Chloride) 100 mls @ 200 mls/hr IV DAILY [facility]; Protocol Last Admin: 06/30/22 09:47 Dose: 100 mls Sodium Chloride (Sodium Chloride 0.45%) 1,000 mls @ 100 mls/hr IV .Q10H [facility] Last Admin: 06/30/22 05:00 Dose: Not Given Sodium Chloride (Sodium Chloride) 250 mls @ 0 mls/hr IV .Q0M [facility] Vancomycin HCl 1.5 gm/ Sodium (Chloride) 500 mls @ 333.333 mls/hr IVPB Q48H [facility] Last Admin: 06/29/22 16:16 Dose: 500 mls Sodium Chloride (Sodium Chloride) 250 mls @ 0 mls/hr IV .Q0M [facility] Insulin Human Regular (Insulin -Regular Human 50 Unit/0.5 Ml Ml) 0 unit SQ ACHS [facility]; Protocol Last Admin: 06/30/22 07:30 Dose: Not Given Lactobacillus Acidoph/Bulgaricus (Lactobacillus/Acidophilus Tab) 1 tab PO BID [facility] Last Admin: 06/30/22 09:22 Dose: 1 tab Lisinopril (Lisinopril 5 Mg Tab) 5 mg PO BID [facility] Last Admin: 06/30/22 09:29 Dose: 5 mg Ondansetron HCl (Ondansetron 4 Mg/2 Ml Vial) 4 mg IV Q6HP PRN PRN Reason: NAUSEA / VOMITING Pantoprazole Sodium (Pantoprazole 40 Mg Inj) 40 mg IVP Q12HR [facility]; Protocol Last Admin: 06/30/22 09:24 Dose: 40 mg Sodium Bicarbonate (Sodium Bicarb 325 Mg Tab) 650 mg PO QID [facility] Last Admin: 06/30/22 09:48 Dose: 650 mg Sodium Chloride (Flush Normal Saline 10 Ml) 10 ml IV BID [facility] Last Admin: 06/30/22 09:29 Dose: 10 ml Sodium Chloride (Sodium Chloride 0.9% 10ml Inj) 10 ml IV UD PRN PRN Reason: Diluant Microbiology Results 06/25/22 22:35 Blood - Blood Aerobic Blood Culture - Preliminary No growth in 24 hours. 06/25/22 22:35 Blood - Blood Anaerobic Blood Culture - Preliminary No growth in 24 hours. 06/25/22 22:15 Blood - Blood Aerobic Blood Culture - Preliminary No growth in 24 hours. 06/25/22 22:15 Blood - Blood Anaerobic Blood Culture - Preliminary No growth in 24 hours. Assessment/ Plan: Nephrology No dyspnea No chest pain Feeling better No acute events overnight Vitals, medications, blood work and imaging reviewed in the chart. General: Oriented x3, Cooperative HEENT: Atraumatic Neck: Supple Respiratory: Clear to auscultation bilaterally Cardiovascular: Regular rate/rhythm, Edema Gastrointestinal: Soft and benign, Non-distended Musculoskeletal: No clubbing, No contractures Integumentary: No cyanosis, Diabetic ulcer Neurological: Normal speech Laboratory Data (last 24 hrs) 06/25/22 22:15: PT 14.4 H, INR 1.31 06/25/22 22:15: WBC 18.40 H, Hgb 8.7 L, Hct 25.5 L, Plt Count 148 L 06/25/22 22:15: Sodium 137, Potassium 5.2 H, BUN 57 H, Creatinine 4.38 H, Glucose 140 H, Magnesium 1.7 Imagings Data: EXAM DESCRIPTION: US - Renal Ultrasound-Complete - 06/26/2022 5:32 am CLINICAL HISTORY: arf COMPARISON: No comparisons FINDINGS: The right kidney measures 12.3 x 6.6 x 5.8 cm. The left kidney measures 10.6 x 5.4 x 4.6 cm. Renal cortical thickness normal for each kidney. There is increased cortical echogenicity consistent with medical renal disease. No hydronephrosis of either kidney. An 18 millimeter cyst is present lower pole right kidney. A 2.2 cm cyst is present upper pole of the left kidney. There is a very small subcortical cyst mid left kidney 5 mm in size. Bladder is mostly contracted which accentuates wall thickness. Bladder evaluation is limited on this examination. IMPRESSION: No hydronephrosis or suspicious renal mass. Bilateral increased renal cortical echogenicity consistent with underlying medical renal disease. Bladder perkins are accentuated by a mostly contracted state and cannot be accurately assessed. EXAM DESCRIPTION: MRI - Foot Left Wo Cont - 06/26/2022 7:58 am CLINICAL HISTORY: R/O osteomyelitis, sepsis, chronic soft tissue wound plantar surface first digit COMPARISON: Foot Left 2 View dated 06/25/2022 TECHNIQUE: Multiplanar imaging of the left foot performed using T1 weighted, T1 fat saturation, T2 STIR and T2 fat saturation sequencing. FINDINGS: Edema signal is present in the soft tissues plantar surface of the first toe for the distal phalanx and IP joint level. No gross bone destructive changes are identifiable. No abscess or drainable fluid collection. Signal is poor around the first toe distal phalanx. This limits evaluation. Marrow signal does appear hypointense in the first distal phalanx and first proximal phalanx head. Proximal portion of the first proximal phalanx shows normal signal pattern. The second-fifth toes and the metatarsals show normal signal pattern. No suspicious finding in the midfoot. IMPRESSION: Signal abnormality in the first distal phalanx and first proximal phalanx head is suspicious but not definitive for osteomyelitis. No bone destruction seen. Soft tissue wound seen plantar surface first toe without abscess or drainable fluid collection. Conclusions/Impression: EDOUARD in the setting of sepsis/ hypotension CKD III with nephrotic syndrome -No NSAIDs -Continue IVF 1/2NS Hyperkalemia -Lokelma prn NAG Metabolic Acidosis -Continue oral bicarb HTN with CKD -Continue Coreg -Increase Linsinopril 10mg BID DM II with CKD A1C 4.6 -RISS Anemia in chronic illness Iron Deficiency 9.7% -Retacrit MWF -Continue Fergon -Transfuse PRBC as ordered HyperPO4 Hypocalcemia -Continue Phoslo -Continue Ergo Sepsis DM foot ulcer Left Toe Osteomyelitis -Continue Abx X6 weeks -Renal dose vancomycin; monitor level -Follow up with Dr. Galeana
--- NOTE | 2022-06-30 11:35 | PN ---
Subjective: The patient lying in bed. by the bedside. Denies any headache, nausea, vomiting, chest pain, abdominal pain, constipation, diarrhea. Feels much better today. Objective: Vital Signs: Temperature 97, pulse 82, respirations 16, blood pressure 202/99. Lungs: Basal crackles. Heart: S1, S2. Regular. Abdomen: Soft, nontender. Bowel sounds present. Extremity: Left leg 1+ edema. Erythematous changes have improved. Laboratory Data: Shows WBC 6.6, hemoglobin 6.8, platelets 118. Chemistry shows BUN of 55, creatinin e 2.5. Albumin level is 1.5. Micro data; cultures are negative to date. Assessment And Plan: 1.Left leg cellulitis. 2.Osteomyelitis of left big toe and diabetic foot ulcer, diabetic neuropathy, anemia of chronic dise ase, thrombocytopenia, acute renal failure, improving. Continue current treatment. We will follow t he patient closely. Off total of 6 weeks antibiotic treatment. The patient will be monitored on dis charge with his primary care. DANIEL/TAMEKA Voice ID: [id number] Report ID: [id number]
--- NOTE | 2022-06-30 11:49 | CON ---
History Of Present Illness: This is a 31-year-old male coming in with cellulitis of left lower extre mity and diabetic foot ulcer to the left big toe. The patient has been diabetic since age 11. Denie s any headache, nausea, vomiting, chest pain, abdominal pain, constipation, or diarrhea. Has signifi cant history of chronic kidney disease. The patient had fever, left lower extremity cellulitis. His hemoglobin A1c is 4.6. His lab data shows WBC from 18.4 down to 9.7, hemoglobin of 7.3, and platele ts of 96. Past Medical History: As per HPI. Social History: Nonsmoker, nondrinker. Family History: Noncontributory. Medications: Cefepime and vancomycin. See MAR for other medications. Allergies: NO KNOWN DRUG ALLERGIES. Review of Systems: A 10-point review was performed. Physical Examination: General: This is a 31-year-old male lying in bed, not in any acute cardiopulmonary distress. Vital Signs: Temperature 97.9, pulse 85, respirations 18, blood pressure 129/67. HEENT: Unremarkable. Neck: Supple. Lungs: Basal crackles. Heart: S1, S2. Regular. Abdomen: Soft, nontender. Bowel sounds present. Extremities: Left leg with erythematous changes and 1+ edema. Ulceration noted on the left big toe. Imaging: MRI of the left foot shows no signs of definitive osteomyelitis, but possible suspicion. T he patient has this ulceration for last several months. Assessment And Plan: Diabetic foot ulcer of the left big toe, possible osteomyelitis. I agree with continuing antibiotic for 6 weeks. Cellulitis of left lower extremity. Leukocytosis is improving. Thrombocytopenia and anemia of chronic disease. Acute renal failure, possibly secondary to infectiou s versus diabetes mellitus. Continue current treatment. Monitor platelets and blood count and sugar control. We will follow the patient closely. Thank you Dr. Gallardo for consult. NF/MODL Voice ID: [id number] Report ID: [id number]
[2022-06-30 16:46] LABS: Hematocrit 22.5 % (39.6-49.0)
[2022-06-30] MEDS: EPOETIN ALFA 10,000 UNIT/ML VIAL SQ SCH (17:04)
[2022-06-30] MEDS: lisinopriL 10 MG TAB PO SCH (21:11)
--- NOTE | 2022-06-30 21:26 | PN ---
Date of Progress Note: 06/30/2022 Subjective: Patient is awake, alert, no complaint. His H and H are still low for which he getting iron as well as blood. Objective: Vital Signs: Stable. He is afebrile. Extremities: His left leg has decreasing erythema and edema. Dressing is clean, dry, and intact. Assessment: Osteomyelitis left great toe with cellulitis and anemia. Recommendations: Continue medical management for his medical issues. Wound care has ordered IV anti biotics. Followup in the wound healing center upon discharge. /MODL Voice ID: [id number] Report ID: [id number]
[2022-07-01] MEDS: NACHLORIDE 0.45% 1,000 ML IV SCH (00:13)
--- NOTE | 2022-07-01 03:02 | P.PN ---
Subjective Date of Service: 06/30/22 Subjective: No new changes, No C/O voiced, Improving Review of Systems 10-point ROS is otherwise unremarkable Physical Examination - Vital Signs Temperature: 98.4 F Blood Pressure: 184/95 Pulse: 84 Respirations: 18 Pulse Ox (%): 98 - Physical Exam General: Alert, In no apparent distress HEENT: Atraumatic, PERRLA, EOMI Neck: Supple, JVD not distended Respiratory: Clear to auscultation bilaterally, Normal air movement Cardiovascular: Regular rate/rhythm, Normal S1 S2 Gastrointestinal: Normal bowel sounds, No tenderness Musculoskeletal: No tenderness Integumentary: No rashes Neurological: Normal speech, Normal tone, Normal affect Lymphatics: No axilla or inguinal lymphadenopathy - Studies Microbiology Data (last 24 hrs): 06/25/22 22:35 Blood - Blood Aerobic Blood Culture - Final No growth in 5 days. 06/25/22 22:35 Blood - Blood Anaerobic Blood Culture - Final No growth in 5 days. 06/25/22 22:15 Blood - Blood Aerobic Blood Culture - Final No growth in 5 days. 06/25/22 22:15 Blood - Blood Anaerobic Blood Culture - Final No growth in 5 days. Medications List Reviewed: Yes Assessment & Plan - Problems (Diagnosis) (1) Anemia Current Visit: Yes Status: Acute (2) Thrombocytopenia Current Visit: Yes Status: Acute (3) Diabetes mellitus type 2 in nonobese Current Visit: No Status: Chronic (4) Hypertension Current Visit: No Status: Chronic (5) Neuropathy Current Visit: No Status: Chronic (6) Stage III chronic kidney disease Current Visit: No Status: Chronic - Plan plan: 1. Continue with monitor renal function 2. Monitor H&H 3. Repeat platelet count 4. arrange for outpatient antibiotic therapy 5. Gi DVT prophylaxis - Advance Directives Does patient have a Living Will: No Does patient have a Durable POA for Healthcare: No Physician Review: Patient Assessed, Agree with Above Assessment and Plan
[2022-07-01] MEDS: HYDRALAZINE HCL 20 MG/ML VIAL IV PRN ×2 (04:45→11:59)
[2022-07-01 05:22] LABS: Absolute Lymphocytes (CBC) 1.2 K/uL (0.7-4.9); Hematocrit 23.3 % (39.6-49.0); Lymphocytes % 15.5 % (15.3-44.8); MCV 86.4 fL (80-100); MPV 8.2 fL (7.6-11.3)
[2022-07-01 05:54] LABS: Blood Morphology Comment NOTED (NOT SEEN); Platelet Estimate ADEQ; Polychromasia 1+
[2022-07-01 05:56] LABS: Ferritin 561.1 ng/mL (26-388); Potassium 4.2 mmol/L (3.5-5.1)
[2022-07-01] MEDS: INSULIN -REGULAR HUMAN 50 UNIT/0.5 ML ML SQ SCH ×2 (07:30→11:30)
[2022-07-01 08:15] VITALS: TEMP 98.4
[2022-07-01] MEDS: SODIUM BICARB 325 MG TAB PO SCH ×2 (08:15→12:25)
[2022-07-01] MEDS: LACTOBACILLUS/ACIDOPHILUS TAB PO SCH (08:16)
[2022-07-01] MEDS: carvediloL 12.5 MG TAB PO SCH (08:16)
[2022-07-01] MEDS: CALCIUM ACETATE 667 MG TAB PO SCH ×2 (08:16→11:59)
[2022-07-01] MEDS: lisinopriL 10 MG TAB PO SCH (08:17)
[2022-07-01] MEDS: FERROUS GLUCONATE 324 MG TAB PO SCH (08:17)
[2022-07-01] MEDS: HEPARIN 5000 UNIT/ML 1 ML VIAL SQ SCH (08:18)
[2022-07-01] MEDS: PANTOPRAZOLE 40 MG INJ IVP SCH (08:18)
[2022-07-01] MEDS: CEFEPIME 1 GM in NA CHLORIDE 0.9% 100 ML IV SCH (08:19)
--- NOTE | 2022-07-01 08:22 | P.PN ---
Subjective Date of Service: 07/01/22 Chief Complaint: Severe sepsis, left lower extremity cellulitis Patient lying in bed with family member at the bedside. Denied having nausea, vomiting, diarrhea, constipation, chest pain or shortness of breath Physical Examination - Vital Signs Temperature: 98.4 F Blood Pressure: 199/95 Pulse: 85 Respirations: 17 Pulse Ox (%): 98 - Physical Exam General: Alert, In no apparent distress, Oriented x3 Neck: Supple Respiratory: Clear to auscultation bilaterally Cardiovascular: Normal pulses, Normal S1 S2, Edema (2+ left leg) Gastrointestinal: Normal bowel sounds Musculoskeletal: Swelling (2+ left leg), Erythema (left great toe diabetic ulcer with possible osteomyelitis) Integumentary: Tenderness/swelling (left great toe diabetic ulcer with possible osteomyelitis 2+ edema), Diabetic ulcer (left great toe) Neurological: Normal speech, Normal tone, Sensation intact, Normal affect - Studies Acetaminophen (Acetaminophen 500 Mg Tab) 500 mg PO Q4HP PRN PRN Reason: TEMP > 100' F Last Admin: 06/27/22 23:54 Dose: 500 mg Hydrocodone Bitart/Acetaminophen (Hydrocodone/Apap 5/325 Mg Tab) 1 tab PO Q6H PRN PRN Reason: Pain scale 5-7 (Moderate) Last Admin: 06/27/22 21:08 Dose: 1 tab Calcium Acetate (Calcium Acetate 667 Mg Tab) 1,334 mg PO TIDWM [facility] Last Admin: 06/30/22 16:32 Dose: 1,334 mg Carvedilol (Carvedilol 12.5 Mg Tab) 25 mg PO BID [facility] Last Admin: 06/30/22 21:11 Dose: 25 mg Dextrose (D10w 250 Ml Bag) 125 ml IV PRN PRN; Protocol PRN Reason: HYPOGLYCEMIA Emollient Gel (Medihoney 44 Ml Topical Tube) 1 appl TOP DAILY [facility] Last Admin: 06/30/22 09:30 Dose: 1 appl Epoetin Hunter (Epoetin Hunter 10,000 Unit/Ml Vial) 10,000 unit SQ M,W,F [facility] Last Admin: 06/30/22 17:04 Dose: 10,000 unit Ergocalciferol (Drisdol (Vitamin D=Ergocalciferol) 85468 Unit Cap) 50,000 unit PO Q7D [facility] Last Admin: 06/28/22 09:26 Dose: 50,000 unit Ferrous Gluconate (Ferrous Gluconate 324 Mg Tab) 324 mg PO DAILY [facility] Last Admin: 06/30/22 09:22 Dose: 324 mg Glucagon (Glucagon 1 Mg/Vial) 1 mg IM 1X PRN; Protocol PRN Reason: HYPOGLYCEMIA Heparin Sodium (Porcine) (Heparin 5000 Unit/Ml 1 Ml Vial) 5,000 unit SQ Q12HR [facility] Last Admin: 06/30/22 21:11 Dose: 5,000 unit Hydralazine HCl (Hydralazine Hcl 20 Mg/Ml Vial) 10 mg IV Q6HP PRN PRN Reason: Titrate to SBP (MUST DEFINE) Last Admin: 07/01/22 04:45 Dose: 10 mg Cefepime HCl 1 gm/ Sodium (Chloride) 100 mls @ 200 mls/hr IV DAILY [facility]; Protocol Last Admin: 06/30/22 09:47 Dose: 100 mls Sodium Chloride (Sodium Chloride 0.45%) 1,000 mls @ 100 mls/hr IV .Q10H [facility] Last Admin: 07/01/22 00:13 Dose: 1,000 mls Sodium Chloride (Sodium Chloride) 250 mls @ 0 mls/hr IV .Q0M [facility] Vancomycin HCl 1.5 gm/ Sodium (Chloride) 500 mls @ 333.333 mls/hr IVPB Q48H [facility] Last Admin: 06/29/22 16:16 Dose: 500 mls Sodium Chloride (Sodium Chloride) 250 mls @ 0 mls/hr IV .Q0M [facility] Insulin Human Regular (Insulin -Regular Human 50 Unit/0.5 Ml Ml) 0 unit SQ ACHS [facility]; Protocol Last Admin: 07/01/22 07:30 Dose: Not Given Lactobacillus Acidoph/Bulgaricus (Lactobacillus/Acidophilus Tab) 1 tab PO BID [facility] Last Admin: 06/30/22 21:10 Dose: 1 tab Lisinopril (Lisinopril 10 Mg Tab) 10 mg PO BID [facility] Last Admin: 06/30/22 21:11 Dose: 10 mg Ondansetron HCl (Ondansetron 4 Mg/2 Ml Vial) 4 mg IV Q6HP PRN PRN Reason: NAUSEA / VOMITING Pantoprazole Sodium (Pantoprazole 40 Mg Inj) 40 mg IVP Q12HR [facility]; Protocol Last Admin: 06/30/22 21:11 Dose: 40 mg Sodium Bicarbonate (Sodium Bicarb 325 Mg Tab) 650 mg PO QID [facility] Last Admin: 06/30/22 21:10 Dose: 650 mg Sodium Chloride (Flush Normal Saline 10 Ml) 10 ml IV BID [facility] Last Admin: 06/30/22 21:00 Dose: Not Given Sodium Chloride (Sodium Chloride 0.9% 10ml Inj) 10 ml IV UD PRN PRN Reason: Diluant Microbiology Data (last 24 hrs): 06/25/22 22:35 Blood - Blood Aerobic Blood Culture - Final No growth in 5 days. 06/25/22 22:35 Blood - Blood Anaerobic Blood Culture - Final No growth in 5 days. 06/25/22 22:15 Blood - Blood Aerobic Blood Culture - Final No growth in 5 days. 06/25/22 22:15 Blood - Blood Anaerobic Blood Culture - Final No growth in 5 days. Imagings Data: MRI - Foot Left Wo Cont - 06/26/2022 FINDINGS: Edema signal is present in the soft tissues plantar surface of the first toe for the distal phalanx and IP joint level. No gross bone destructive changes are identifiable. No abscess or drainable fluid collection. Signal is poor around the first toe distal phalanx. This limits evaluation. Marrow signal does appear hypointense in the first distal phalanx and first proximal phalanx head. Proximal portion of the first proximal phalanx shows normal signal pattern. The second-fifth toes and the metatarsals show normal signal pattern. No suspicious finding in the midfoot. IMPRESSION: Signal abnormality in the first distal phalanx and first proximal phalanx head is suspicious but not definitive for osteomyelitis. No bone destruction seen. Soft tissue wound seen plantar surface first toe without abscess or drainable fluid collection. Medications List Reviewed: Yes Assessment And Plan - Current Problems (Diagnosis) (1) Diabetic ulcer of left great toe Current Visit: No Status: Chronic Plan: Cultures: 06/25 BCx2: Negative Antibiotics: On IV Cefepime (2/) and Vancomycin (/) Recommendation: Continue IV Cefepime and Vancomycin for total of 6 weeks duration (2) Severe sepsis due to Lt lower extremity Current Visit: Yes Status: Acute Plan: Recommendation: Continue IV Cefepime and Vancomycin - Plan - Left great toe diabetic ulceration with possible osteomyelitis - Severe sepsis secondary to left lower extremity cellulitis - Severe protein calorie malnutrition - Acute renal failure with hyperkalemia - Diabetes mellitus II - Anemia of chronic disease - CKD - Retinal detachment ID will monitor the patient closely for signs of infection with fever and WBC trends Case has been discussed with Tobi Mooney Physician Review: Patient Assessed, Agree with Above Assessment and Plan
[2022-07-01] MEDS: MEDIHONEY 44 ML TOPICAL TUBE TOP SCH (08:26)
[2022-07-01 09:10] VITALS: O2SAT 98
[2022-07-01] MEDS ORDERED: cloNIDine HCL 0.1 MG TAB PO ONE (09:35)
[2022-07-01 12:42] VITALS: BP 199/95
--- NOTE | 2022-07-01 20:17 | P.PN ---
Date of Service: 07/01/22 Vital Signs Temp Pulse Resp BP Pulse Ox 98.4 F 85 17 199/95 H 98 07/01/22 12:43 07/01/22 12:43 07/01/22 12:43 07/01/22 12:43 07/01/22 12:43 Microbiology Results 06/25/22 22:35 Blood - Blood Aerobic Blood Culture - Final No growth in 5 days. 06/25/22 22:35 Blood - Blood Anaerobic Blood Culture - Final No growth in 5 days. 06/25/22 22:15 Blood - Blood Aerobic Blood Culture - Final No growth in 5 days. 06/25/22 22:15 Blood - Blood Anaerobic Blood Culture - Final No growth in 5 days. Assessment/ Plan: Nephrology No dyspnea No chest pain Feeling better No acute events overnight Vitals, medications, blood work and imaging reviewed in the chart. General: Oriented x3, Cooperative HEENT: Atraumatic Neck: Supple Respiratory: Clear to auscultation bilaterally Cardiovascular: Regular rate/rhythm, Edema Gastrointestinal: Soft and benign, Non-distended Musculoskeletal: No clubbing, No contractures Integumentary: No cyanosis, Diabetic ulcer Neurological: Normal speech Laboratory Data (last 24 hrs) 06/25/22 22:15: PT 14.4 H, INR 1.31 06/25/22 22:15: WBC 18.40 H, Hgb 8.7 L, Hct 25.5 L, Plt Count 148 L 06/25/22 22:15: Sodium 137, Potassium 5.2 H, BUN 57 H, Creatinine 4.38 H, Glucose 140 H, Magnesium 1.7 Imagings Data: EXAM DESCRIPTION: US - Renal Ultrasound-Complete - 06/26/2022 5:32 am CLINICAL HISTORY: arf COMPARISON: No comparisons FINDINGS: The right kidney measures 12.3 x 6.6 x 5.8 cm. The left kidney measures 10.6 x 5.4 x 4.6 cm. Renal cortical thickness normal for each kidney. There is increased cortical echogenicity consistent with medical renal disease. No hydronephrosis of either kidney. An 18 millimeter cyst is present lower pole right kidney. A 2.2 cm cyst is present upper pole of the left kidney. There is a very small subcortical cyst mid left kidney 5 mm in size. Bladder is mostly contracted which accentuates wall thickness. Bladder evaluation is limited on this examination. IMPRESSION: No hydronephrosis or suspicious renal mass. Bilateral increased renal cortical echogenicity consistent with underlying medical renal disease. Bladder perkins are accentuated by a mostly contracted state and cannot be accurately assessed. EXAM DESCRIPTION: MRI - Foot Left Wo Cont - 06/26/2022 7:58 am CLINICAL HISTORY: R/O osteomyelitis, sepsis, chronic soft tissue wound plantar surface first digit COMPARISON: Foot Left 2 View dated 06/25/2022 TECHNIQUE: Multiplanar imaging of the left foot performed using T1 weighted, T1 fat saturation, T2 STIR and T2 fat saturation sequencing. FINDINGS: Edema signal is present in the soft tissues plantar surface of the first toe for the distal phalanx and IP joint level. No gross bone destructive changes are identifiable. No abscess or drainable fluid collection. Signal is poor around the first toe distal phalanx. This limits evaluation. Marrow signal does appear hypointense in the first distal phalanx and first proximal phalanx head. Proximal portion of the first proximal phalanx shows normal signal pattern. The second-fifth toes and the metatarsals show normal signal pattern. No suspicious finding in the midfoot. IMPRESSION: Signal abnormality in the first distal phalanx and first proximal phalanx head is suspicious but not definitive for osteomyelitis. No bone destruction seen. Soft tissue wound seen plantar surface first toe without abscess or drainable fluid collection. Conclusions/Impression: EDOUARD in the setting of sepsis/ hypotension CKD III with nephrotic syndrome -No NSAIDs -Continue IVF 1/2NS Hyperkalemia -Lokelma prn NAG Metabolic Acidosis -Continue oral bicarb HTN with CKD -Continue Coreg -Continue Linsinopril 10mg BID DM II with CKD A1C 4.6 -RISS Anemia in chronic illness Iron Deficiency 9.7% -Retacrit MWF -Continue Fergon -Transfuse PRBC as ordered HyperPO4 Hypocalcemia -Continue Phoslo -Continue Ergo Sepsis DM foot ulcer Left Toe Osteomyelitis -Continue Abx X6 weeks -Renal dose vancomycin; monitor level -Follow up with Dr. Galeana
[2022-07-02 05:04] LABS: HIV AG/AB 4TH GEN Non-reactive (Non-reactive)
--- NOTE | 2022-07-08 17:56 | EKG ---
Test Date: 2022-06-25 Test Time: 22:49:26 [employer]: HERLINDA MEASUREMENT RESULTS: Intervals: Rate: 103 WI: 122 QRSD: 82 QT: 314 QTc: 411 [place]: P: 84 WI: 122 QRS: 36 T: 83 INTERPRETIVE STATEMENTS: Sinus tachycardia Otherwise normal ECG No previous ECG available for comparison Electronically Signed On 07-08-22 17:32:04 CMV DRIVER by Germán Payan
== END 2022-07-01 14:09 | disposition home or self-care (01) | DRG 871 ==
LOC: ER 21:36 → ERHOLD 06-26 00:23 → 4TH 06-26 00:38
PROVIDERS: ADMIT Internal Medicine; ATTEND Hospitalist
PROC: 02HV33Z Insertion of Infusion Device into Superior Vena Cava, Percutaneous Approach (ICD-10-PCS; principal; 2022-06-27)
PROC: 30233N1 Transfusion of Nonautologous Red Blood Cells into Peripheral Vein, Percutaneous Approach (ICD-10-PCS; 2022-06-29)
DX: A41.9 Sepsis, unspecified organism (principal); E43 Unspecified severe protein-calorie malnutrition; L03.116 Cellulitis of left lower limb; N17.9 Acute kidney failure, unspecified; E87.20 Acidosis, unspecified; M86.8X7 Other osteomyelitis, ankle and foot; E11.22 Type 2 diabetes mellitus with diabetic chronic kidney disease; N18.30 Chronic kidney disease, stage 3 unspecified; E11.621 Type 2 diabetes mellitus with foot ulcer; L97.529 Non-pressure chronic ulcer of other part of left foot with unspecified severity; E87.5 Hyperkalemia; E11.69 Type 2 diabetes mellitus with other specified complication; D50.9 Iron deficiency anemia, unspecified; D63.1 Anemia in chronic kidney disease; R31.29 Other microscopic hematuria; E11.65 Type 2 diabetes mellitus with hyperglycemia; E83.39 Other disorders of phosphorus metabolism; E83.51 Hypocalcemia; E11.40 Type 2 diabetes mellitus with diabetic neuropathy, unspecified; D69.6 Thrombocytopenia, unspecified; Z79.4 Long term (current) use of insulin; Z68.26 Body mass index [BMI] 26.0-26.9, adult; Z79.84 Long term (current) use of oral hypoglycemic drugs; Z79.899 Other long term (current) drug therapy; Z20.822 Contact with and (suspected) exposure to COVID-19
CPT/HCPCS: 0240U; 36415; 36430; 36569; 71045; 76770; 80048; 80053; 80202; 81001; 82435; 82570; 82607; 82728; 82747; 82947; 83036; 83540; 83605; 83735; 83880; 84100; 84145; 84156; 84300; 84466; 84550; 85014; 85018; 85025; 85044; 85610; 86038; 86160; 86704; 86706; 86803; 86850; 86900; 86901; 87040; 87340; 87389; 93005; 93306; 93971; 94640; 99285; C9113; J0360; J0610; J0692; J1644; J1815; J1940; J2250; J3370; J7030; J7040; J7050; J7613; P9016; Q5106